=== PATIENT | male | born 1945 | race Caucasian/White ===

== ENCOUNTER → 2017-07-09 14:17 | Outpatient (CLI) | payer MEDICARE, BC, SELFPAY ==
--- NOTE | 2017-07-09 14:33 | CT_ITS ---
CT chest wo con Ordering Physician: Ari Lovell MD Patient Age: 71 years: Male HISTORY: ITS.REASON: LUNG MASS TECHNIQUE: Helical CT scanning performed through the chest. No IV contrast. COMPARISON : Previous LD CT chest from May 2016 FINDINGS MEDIASTINA l: no significant adenopathy. No mass lesions. Scant fluid at pericardial reflection at base the great vessels. Hilar regions satisfactory. Airways. No intraluminal lesion or mass. Aortic arch normal caliber LUNG RYDER. Linear area of most likely scarring at anterior lingula. Axial Image 62,-65. Sagittal 75-78. The sagittal coronal views demonstrate Very slight stellate character however interpreted the linear and similar to the previous study from previous study from May 2016. Overall strongly favor scarring. Thus given its stability and overall appearance Follow-up in one year the adequate for ongoing evaluation. On previous May 2016 CT chest there is a small 3.5 mm nodule anteriorly L UL left midlung field. This is less evident today. No progression most likely area of minor scarring. Axial image 40 Airways. Subtle airway thickening with mild hyperexpansion may reflect chronic bronchitis changes Stable Moderate-sized, low-density nodes left axilla. Upper abdomen. Mildly distended fluid-filled distended stomach. Small most likely cyst superior left lobe liver 8 mm size. Heart normal size coronary artery calcification LAD, left main, first diagonal again noted Stable chest wall or ribs. Mild degenerative disc changes and vacuum phenomena several levels mid T-spine again slightly more evident today . IMPRESSION. 1. No areas of significant concern at lungs Follow-up screening CT one year recommended to confirm stability at the below observations: ... The Linear density towards anterior lingula by far most most likely reflect scarring and is similar to previous studies. Minimally more evident but solid favor scarring overall. ...Tiny vague , left midlung less evident than on 2017 CT chest ... 2. No new areas of concern.Follow-up in one year adequate. 3. Subtle airway thickening with mild hyperexpansion may reflect chronic bronchitis . Coronary artery calcification LAD, left main, first diagonal again noted
== END ==
PROVIDERS: Family Provider Internal Medicine Adolescent Medicine; PCP Internal Medicine Adolescent Medicine; Visit Provider Internal Medicine Adolescent Medicine
DX: R91.8 Other nonspecific abnormal finding of lung field (principal)
CPT/HCPCS: 71250

== ENCOUNTER → 2017-08-28 11:44 | Outpatient (CLI) | payer MEDICARE, BC, SELFPAY ==
[2017-08-29 16:17] LABS: PSA, Free 1.45 ng/mL; Prostate Specific Ag 5.3 ng/mL (0.0-4.0)
== END ==
PROVIDERS: PCP Internal Medicine Adolescent Medicine; Visit Provider Internal Medicine Adolescent Medicine
DX: R97.20 Elevated prostate specific antigen [PSA] (principal)
CPT/HCPCS: 36415; 84153; 84154

== ENCOUNTER 2017-11-04 13:49 | Observation (INO) ==
[2017-11-04 14:30] LABS: Basophils % 0.6 % (0.1-2.0); Eosinophils # 0.1 K/mm3 (0.0-0.4); Hematocrit 41.7 % (42.0-52.0); Hemoglobin 13.4 g/dL (14.1-18.0); Lymphocytes # 1.5 K/mm3 (0.7-4.5); Lymphocytes % 23.5 K/mm3 (10-50); Mean Corpuscular HGB Conc 32.1 g/dL (31.8-35.4); Mean Corpuscular Hemoglobin 31.6 pg (27.0-31.2); Mean Corpuscular Volume 98.2 fl (80-94); Mean Platelet Volume 7.8 fl (7.4-10.4); Monocytes # 0.5 K/mm3 (0.1-1.0); Monocytes % 7.2 % (1.7-9.3); Neutrophils # 4.3 K/mm3 (1.8-7.8); Neutrophils % 66.7 % (37.0-80.0); Platelet Count 247 K/mm3 (142-424); Red Blood Count 4.25 M/mm3 (4.60-6.20); Red Cell Distribution Width 13.1 % (11.5-17.5); White Blood Count 6.5 K/mm3 (4.8-10.8)
[2017-11-04 14:37] LABS: Anion Gap 10.8 mEq/L (5-15); Blood Urea Nitrogen 18 mg/dL (7-18); Calcium 8.1 mg/dL (8.5-10.1); Carbon Dioxide 28 mmol/L (21.0-32.0); Chloride 110 mmol/L (98-107); Glucose 91 mg/dL (74-106); Potassium 3.8 mmoL/L (3.5-5.1); Sodium 145 mmol/L (136-145)
--- NOTE | 2017-11-04 15:32 | Emergency Department Note ---
ED Disposition Clinical Impression: Chest pain Qualifiers: Chest pain type: precordial pain Qualified Code(s): R07.2 - Precordial pain Disposition: Admitted as Observation Condition on Discharge: Good Referrals: Ari Lovell MD [Primary Care Provider] - - Critical Care Critical Care Time: No Attestation: On 11/04/17, the high probability of a clinically significant, sudden or life threatening deterioration of the following system(s) required my full and direct attention, intervention and personal management. The time I documented below is in addition to time spent performing reported procedures but includes the following listed in this critical care notation. Medical Decision Making - Medical Records Medical records reviewed: Yes: I reviewed the patient's medical records. - Vicente Inquiry Pt receiving controlled substance: No Vital Signs: 11/04/17 13:51 11/04/17 15:03 Temperature 98.6 F 98 F Temperature Source Oral Oral Pulse Rate [Brachial] 95 H 74 Respiratory Rate 18 18 Blood Pressure [Right Arm] 170/84 187/97 Blood Pressure Mean [Right Arm] 112 127 Blood Pressure Source [Right Arm] Automatic Cuff Automatic Cuff Blood Pressure Position [Right Arm] Sitting Sitting 02 Sat by Pulse Oximetry 97 97 Oxygen Delivery Method Room Air Room Air - Lab Data Lab results reviewed: Yes: I reviewed the patient's lab results. Lab Results 11/04/17 14:12: WBC 6.5, RBC 4.25 L, Hgb 13.4 L, Hct 41.7 L, MCV 98.2 H, MCH 31.6 H, MCHC 32.1, RDW 13.1, Plt Count 247, MPV 7.8, Neut % (Auto) 66.7, Lymph % (Auto) 23.5, [place] % (Auto) 7.2, Eos % (Auto) 2.0, Baso % (Auto) 0.6, Neut # ( Auto) 4.3, Lymph # (Auto) 1.5, [place] # (Auto) 0.5, Eos # (Auto) 0.1, Baso # (Auto ) 0.0 11/04/17 14:12: Sodium 145, Potassium 3.8, Chloride 110 H, Carbon Dioxide 28, Anion Gap 10.8, BUN 18, Creatinine 0.96, Estimated Creat Clear 79, Estimated GFR 77, Est GFR ( Amer) 93, Glucose 91, Calcium 8.1 L, Troponin I < 0.02 Result diagrams: 11/04/17 14:12 11/04/17 14:12 - Radiology Data #1 Image(s): Chest Image Reviewed: Yes I reviewed the patient's radiology image Preliminary Findings: Normal/NAD - ECG Data Tracing #1 I reviewed this ECG and interpreted as documented below: Normal Sinus Rhythm: Yes Arrhythmias present: PVC's Ischemic changes: other (lat depressions ) Tracing #2 I reviewed this ECG and interpreted as documented below: Arrhythmias present: sinus carmen Ischemic changes: non-specific ST-T wave changes - Physician Consults Physician Consulted: bethany Reason -: Admission Chest Pain HPI - General Chief Complaint: Dizziness Stated Complaint: dizziness and shortness of breath Time Seen by Provider: 11/04/17 14:00 Mode of Arrival: EMS Source of Information: Patient, Spouse, Relative, Medical Record Limitations: No Limitations Description of Symptoms (Recalled from ER Triage Doc. by RN): c/o dizziness, shortness of breath, denies any chest pain, reports tightness in chest. reports similar episodes in past. reports irregular heart rate - History of Present Illness HPI narrative: pt with acute chest tightness with assoc dizzyness with light act - has hx of arrthymia - sx lasted about 1 hr and now have resolved MD complaint: chest pain indicative of cardiac Onset (ago): hour(s) Duration: now resolved Activity at onset: light activity Pain location: substernal Severity: moderate Quality: tightness Relieving factors: nothing Associated symptoms: diaphoresis, dyspnea Risk Factors for CAD: Hypertension, Family Hx of CAD, Smoking Treatments prior to or on arrival for Cardiac Chest Pain: aspirin - DUKE Score Non-Stemi Age of patient: 65 yrs or more Number of risk factors for CAD: Presence of 3 or more Prior coronary artery stenosis(seen in coronary angiography): Less than 50% ST-Segment deviation on ECG (more than 1 min): Present Prior aspirin intake: No ASA in the last 7 days Severe anginal chest pain: No or one episode in last 24 hours Elevated cardiac markers(CK-MB or troponin): Absent Non-Stemi Risk Score: 3 - Related Data Home Medications Medication Instructions Recorded Confirmed Carvedilol [Carvedilol 25mg Tab] 1 tab .ROUTE DAILY 11/04/17 11/04/17 Lisinopril [Lisinopril 10mg Tab] 10 mg .ROUTE DAILY 11/04/17 11/04/17 Tamsulosin HCl [Flomax 0.4mg 1 tab .ROUTE DAILY 11/04/17 11/04/17 capsule] Allergies Allergy/AdvReac Type Severity Reaction Status Date / Time No Known Allergies Allergy Verified 11/04/17 14:[address] [facility] History I have reviewed the patient's past medical history: Yes Medical History: Denies:: Cancer, Diabetes Mellitus Type 1, Diabetes Mellitus Type 2, Internal Pacemaker, MRSA Other Surgeries: No: Pacemaker Amputation: No - Social History Educational Level: Attended High School Smoking Status: Current every day smoker Tobacco Type: cigarettes Alcohol Intake: current Alcohol Intake Frequency:: a few times a week - Psychiatric History Expresses thoughts of harming self/others: None Suicide Plan Description: No Plan ROS Obtained: Yes All systems reviewed & no additional complaints - Constitutional Constitutional: Denies fever(s) - Eyes Eyes: Denies change in vision - ENT Ears, Nose, Mouth, and Throat: Denies sore throat - Cardiovascular Cardiovascular: Reports chest pain, Reports lightheadedness - Respiratory Respiratory: No cough - Gastrointestinal Gastrointestingal: Denies: abdominal pain - Genitourinary Male Genitourinary: Denies hematuria - Musculoskeletal Musculoskeletal: Denies joint pain, Denies joint swelling - Integumentary/Breasts Skin/Breast: Denies rash - Neurologic Neurologic: Denies seizure-like activity Physical Exam - General General appearance: in no apparent distress - Head Head exam: normocephalic - Eye Eye exam: Present: PERRL, EOMI - ENT ENT exam: Present: mucous membranes moist - Neck Neck exam: Present: trachea midline - Respiratory Respiratory exam: Present: normal lung sounds bilaterally. Absent: respiratory distress - Cardiovascular Cardiovascular exam: Present: regular rate, systolic murmur, +S4 - Abdominal Exam Abdominal exam: Present: soft - Extremities Exam Extremities exam: Absent: calf tenderness - Neurological Exam Neurological exam: Present: alert, oriented X3, CN II-XII intact - Psychiatric Psychiatric exam: Present: normal affect - Skin Skin exam: Absent: rash
--- NOTE | 2017-11-04 17:12 | History & Physical Report ---
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 He was able to walk to his daughter's home and the ambulance was called. PVCs with EKG changes were noted on the monitor and he was transported to the hospital where this was confirmed. Once the PVCs stopped EKG had returned to normal. Initial labs were unremarkable but given his symptom complex, significant risk factors of heart disease patient was admitted for telemetry monitoring, rule out VA and cardiology evaluation. [facility] History I have reviewed the patient's past medical history: Yes Medical History: Reports:: Hyperlipidemia, Hypertension Denies:: Cancer, Diabetes Mellitus Type 1, Diabetes Mellitus Type 2, Internal Pacemaker, MRSA Other Medical History: Reports: Arthritis (Gouty arthritis) Other Surgeries: No: Pacemaker Amputation: No - *Social History Educational Level: Attended High School Smoking Status: Current every day smoker Tobacco Type: cigarettes Alcohol Intake: current Alcohol Intake Frequency:: a few times a week - Psychiatric History Expresses thoughts of harming self/others: None Suicide Plan Description: No Plan Review of Systems - Review of Systems Review of systems:: pertinent systems reviewed and negative unless documented below - Constitutional Denies anorexia, Denies body ache(s), Denies chills - Eyes Denies blurry vision, Denies change in vision - ENT Reports abnormal hearing (Chronic hearing loss), Denies change in voice, Denies dry mouth, Denies difficulty swallowing - *Cardiovascular Reports chest pain with activity, Reports shortness of breath, Reports shortness of breath with activity, Reports irregular heart rhythm, Reports lightheadedness, Reports rapid, pounding, or irregular heartbeat, Denies chest pain - *Respiratory Denies change in phlegm color, Denies chest congestion, Denies cough - *Gastrointestinal Denies abdominal pain, Denies belching, Denies coffee ground vomit - *Genitourinary Denies difficulty urinating - *Musculoskeletal Reports joint pain, Denies abnormal walking - *Neurologic Denies seizure-like activity Meds Home Medications Medication Instructions Recorded Confirmed Type Carvedilol [Carvedilol 25mg Tab] 1 tab .ROUTE DAILY 11/04/17 11/04/17 History Lisinopril [Lisinopril 10mg Tab] 10 mg .ROUTE DAILY 11/04/17 11/04/17 History Tamsulosin HCl [Flomax 0.4mg 1 tab .ROUTE DAILY 11/04/17 11/04/17 History capsule] Allergies Allergy/AdvReac Type Severity Reaction Status Date / Time No Known Allergies Allergy Verified 11/04/17 14:14 Exam Vital signs and Labs for Last 24 Hours: Temp Pulse Resp BP Pulse Ox 98.3 F 52 L 16 158/88 97 11/04/17 15:46 11/04/17 15:46 11/04/17 15:46 11/04/17 15:46 11/04/17 15:03 Laboratory Results - last 24 hr 11/04/17 14:12: WBC 6.5, RBC 4.25 L, Hgb 13.4 L, Hct 41.7 L, MCV 98.2 H, MCH 31.6 H, MCHC 32.1, RDW 13.1, Plt Count 247, MPV 7.8, Neut % (Auto) 66.7, Lymph % (Auto) 23.5, [place] % (Auto) 7.2, Eos % (Auto) 2.0, Baso % (Auto) 0.6, Neut # ( Auto) 4.3, Lymph # (Auto) 1.5, [place] # (Auto) 0.5, Eos # (Auto) 0.1, Baso # (Auto ) 0.0 11/04/17 14:12: Sodium 145, Potassium 3.8, Chloride 110 H, Carbon Dioxide 28, Anion Gap 10.8, BUN 18, Creatinine 0.96, Estimated Creat Clear 79, Estimated GFR 77, Est GFR ( Amer) 93, Glucose 91, Calcium 8.1 L, Troponin I < 0.02 11/04/17 16:13: Troponin I < 0.02 I & O for Last 24 hours: Intake & Output 11/02/17 11/03/17 11/04/17 11/05/17 11:59 11:59 11:59 11:59 Weight 190 lb 14.052 oz Narrative: Patient is pleasant, alert, hard of hearing at baseline. 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 No active joint swelling. 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 H&P: Result - Labs Labs: Short CBC 11/04/17 Range/Units 14:12 WBC 6.5 (4.8-10.8) K/mm3 Hgb 13.4 L (14.1-18.0) g/dL Hct 41.7 L (42.0-52.0) % Plt Count 247 (142-424) K/mm3 BMP 11/04/17 14:12 Sodium 145 Potassium 3.8 Chloride 110 H Carbon Dioxide 28 BUN 18 Creatinine 0.96 Glucose 91 Calcium 8.1 L Cardiac Enzymes 11/04/17 11/04/17 Range/Units 14:12 16:13 Troponin I < 0.02 < 0.02 (0.00-0.06) ng/ml Assessment and Plan (1) Ventricular dysrhythmia Current visit: Yes Status: Acute Category: Medical Code(s): I49.9 - Cardiac arrhythmia, unspecified Agree with admission, close monitoring. Blood pressure control with amlodipine. Cardiology evaluation for left heart cath tomorrow morning with echocardiogram. (2) Chest pain Current visit: Yes Status: Acute Qualifiers: Chest pain type: precordial pain Qualified Code(s): R07.2 - Precordial pain Category: Medical Code(s): R07.9 - Chest pain, unspecified
[2017-11-04 17:39] LABS: Free Thyroxine Index 2.8 ug/dL (5.93-13.13); T4 (Thyroxine) 7.7 ug/dl (4.7-13.3); Thyroid Stimulating Hormone 1.17 uIU/ml (0.358-3.740)
[2017-11-05 06:33] LABS: Basophils % 0.6 % (0.1-2.0); Eosinophils # 0.1 K/mm3 (0.0-0.4); Eosinophils % 1.7 % (0.1-12.0); Hemoglobin 13.9 g/dL (14.1-18.0); Lymphocytes # 1.5 K/mm3 (0.7-4.5); Lymphocytes % 20.9 K/mm3 (10-50); Mean Corpuscular HGB Conc 31.7 g/dL (31.8-35.4); Mean Corpuscular Hemoglobin 30.9 pg (27.0-31.2); Mean Corpuscular Volume 97.8 fl (80-94); Mean Platelet Volume 7.7 fl (7.4-10.4); Monocytes # 0.5 K/mm3 (0.1-1.0); Monocytes % 6.5 % (1.7-9.3); Neutrophils % 70.5 % (37.0-80.0); Platelet Count 246 K/mm3 (142-424); Red Cell Distribution Width 13.1 % (11.5-17.5); White Blood Count 7.2 K/mm3 (4.8-10.8)
[2017-11-05 06:35] LABS: Anion Gap 11.9 mEq/L (5-15); Calcium 8.1 mg/dL (8.5-10.1); Chol/HDL Ratio 4.5 (1-3.5); Potassium 3.9 mmoL/L (3.5-5.1)
--- NOTE | 2017-11-05 07:22 | Pharmacy Consult Notes ---
[facility] Pharmacy VTE Monitoring - Patient Demographics Admission date: 11/04/17 Report Date: 11/05/17 Time: 07:22 Allergies/Adverse Reactions: Patient Allergies No Known Allergies Allergy (Verified 11/04/17 14:14) Height: 1.75 m Weight: 88.479 kg Patient Problems: Current Active Problems Chest pain (Acute) Ventricular dysrhythmia (Acute) - VTE Risk Labs: VTE Related Lab Results Hgb 13.9 g/dL (14.1-18.0) L 11/05/17 05:40 Hct 44.0 % (42.0-52.0) 11/05/17 05:40 Plt Count 246 K/mm3 (142-424) 11/05/17 05:40 BUN 15 mg/dL (7-18) 11/05/17 05:40 Creatinine 0.85 mg/dL (0.70-1.30) 11/05/17 05:40 Estimated Creat Clear 81 mL/min (0-300) 11/05/17 05:40 VTE Score: 1 - Prophylaxis VTE Prophylaxis Ordered?: Yes Types of VTE Prophylaxis: TEDS Knee High Location of Applied Device: Bilateral Lower Extremeties - VTE Diagnosis Confirmed Treatment or plan recommended: Continue Current Treatment
--- NOTE | 2017-11-05 07:55 | Progress Note ---
Internal Medicine - PN: Subj *Date: 11/05/17 *Time: 07:55 Interval history: Patient felt well overnight good night sleep. Exam Vital signs and Labs for Last 24 Hours: Temp Pulse Resp BP Pulse Ox 98.2 F 53 L 20 148/74 97 11/05/17 04:50 11/05/17 04:50 11/05/17 04:50 11/05/17 04:50 11/05/17 04:50 Laboratory Results - last 24 hr 11/04/17 14:12: WBC 6.5, RBC 4.25 L, Hgb 13.4 L, Hct 41.7 L, MCV 98.2 H, MCH 31.6 H, MCHC 32.1, RDW 13.1, Plt Count 247, MPV 7.8, Neut % (Auto) 66.7, Lymph % (Auto) 23.5, [place] % (Auto) 7.2, Eos % (Auto) 2.0, Baso % (Auto) 0.6, Neut # ( Auto) 4.3, Lymph # (Auto) 1.5, [place] # (Auto) 0.5, Eos # (Auto) 0.1, Baso # (Auto ) 0.0 11/04/17 14:12: Sodium 145, Potassium 3.8, Chloride 110 H, Carbon Dioxide 28, Anion Gap 10.8, BUN 18, Creatinine 0.96, Estimated Creat Clear 79, Estimated GFR 77, Est GFR ( Amer) 93, Glucose 91, Calcium 8.1 L, Troponin I < 0.02 11/04/17 16:13: Troponin I < 0.02 11/04/17 16:13: TSH 1.17, Free T4 Index 2.8 L, Thyroxine (T4) 7.7, T3 Uptake 36 11/04/17 18:45: Troponin I < 0.02 11/04/17 21:45: Troponin I < 0.02 11/05/17 05:40: WBC 7.2, RBC 4.50 L, Hgb 13.9 L, Hct 44.0, MCV 97.8 H, MCH 30.9 , MCHC 31.7 L, RDW 13.1, Plt Count 246, MPV 7.7, Neut % (Auto) 70.5, Lymph % ( Auto) 20.9, [place] % (Auto) 6.5, Eos % (Auto) 1.7, Baso % (Auto) 0.6, Neut # (Auto ) 5.0, Lymph # (Auto) 1.5, [place] # (Auto) 0.5, Eos # (Auto) 0.1, Baso # (Auto) 0.0 11/05/17 05:40: Sodium 143, Potassium 3.9, Chloride 109 H, Carbon Dioxide 26, Anion Gap 11.9, BUN 15, Creatinine 0.85, Estimated Creat Clear 81, Estimated GFR 88, Est GFR ( Amer) 107, Glucose 97, Calcium 8.1 L, Triglycerides 86 , Cholesterol 145, LDL Cholesterol 96, VLDL Cholesterol 17, HDL Cholesterol 32, Cholesterol/HDL Ratio 4.5 H I & O for Last 24 hours: Intake & Output 11/02/17 11/03/17 11/04/17 11/05/17 11:59 11:59 11:59 11:59 Intake Total 1489 / 1489 Balance 1489 / 1489 Weight 195 lb 1 oz Narrative: Heart rate regular. Patient alert and oriented. No visible edema. Breathing well. Assessment and Plan (1) Ventricular dysrhythmia Current visit: Yes Status: Acute Category: Medical Code(s): I49.9 - Cardiac arrhythmia, unspecified (2) Chest pain Current visit: Yes Status: Acute Qualifiers: Chest pain type: precordial pain Qualified Code(s): R07.2 - Precordial pain Category: Medical Code(s): R07.9 - Chest pain, unspecified - Assessment and plan all Dx Assessment and Plan for all problems:: Preliminary echo report looks good. Cardiology consultation pending.
--- NOTE | 2017-11-05 14:17 | Consult Report ---
History of Present Illness Consult date: 11/05/17 Consult reason: chest pain Chief complaint: chest pain Additional Medical History:: 1. Chest pain a. Several episodes of chest pain intermittently for past few months. 2. Ventricular arrhythmia a. Episodes of supra ventricular tachycardia. b. Frequent PVC's and PACs. 3. Hypertension a. Currently on anti-hypertensive medication. 4. Alcohol dependance a. 2-3 drinks a day for several years. 5. Tobacco dependence a. 1-2 ppd for 30+ years. History of present illness: 72 year old white male presents to the Emergency department on 11/04/2017 for chest pressure and tightness accompanied with dizziness. Pt stated he had been walking from the wood pile at home when he began having a "funny feeling" in his chest. He complained of dizziness and felt "my head was spinning". Denied radiation of chest tightness or pressure. Denied shortness of breath. Denied palpitations. Pt stated that this episode lasted for more than one hour. Pt has history of hypertension. Initial EKG was performed in the ER. Revealed Sinus rhythm with fusion complexes and premature atrial complexes with aberrant condition with heart rate of 78bpm. Baseline lab was preformed and unremarkable. Serial enzymes were negative. Chest xray was performed and was negative with no acute findings. Cardiology consult was performed. Discussed the risk and benefits of Dr. Jovel performing Left heart catheterization due to chest pressure and tightness, alcohol and tobacco dependence. Discussed access of the right wrist for LHC. Pt agreeable and will proceed with LHC and echocardiogram. Left heart catetherization revealed: ANGIOGRAPHIC RESULTS: 1. The left main artery normal 2. The left anterior descending artery is proximally normal with mild mid vessel 10-20% stenoses 3. The circumflex artery is a large dominant vessel and has an ostial 70-80% stenosis. 4. The right coronary artery is a nondominant vessel and has proximal 70% stenoses mid vessel 50 and 60% stenoses throughout its entire mid segment. Distally there are additional 50 and 60% stenoses 5. The CROWLEY ventriculogram reveals normal 65% 6. The left ventricular end-diastolic pressure 10 mmHg IMPRESSION: 1. Severe disease in the ostial proximal dominant circumflex artery 2. Successful stenting of the ostial circumflex artery severe disease reduced to 0% with 1 drug-eluting stent 3. Persistent moderate to severe disease throughout the right coronary artery as described above 4. Normal ejection fraction 5. Normal left ventricular end-diastolic pressure PLAN: 1. Brilinta and aspirin 2. LDL less than 55 3. Risk factor modification 4. Avoidance of tobacco products 5. Cardiac rehabilitation Echocardiogram results pending at this time. [facility] History Medical History: Reports:: Arrhythmia, Hyperlipidemia, Hypertension Denies:: Cancer, Diabetes Mellitus Type 1, Diabetes Mellitus Type 2, Internal Pacemaker, MRSA Other Medical History: Reports: Arthritis (Gouty arthritis) Laterality Cases: Bilateral: Tonsillectomy Other Surgeries: No: Pacemaker Amputation: No - *Social History Educational Level: Attended High School Smoking Status: Current every day smoker Tobacco Type: cigarettes # Packs/Day (cigarettes): 1 #Yrs smoked (if former smoker): 64 Alcohol Intake: current Alcohol Intake Frequency:: a few times a week Occupational Status: retired Housing: house Household Members: spouse - Psychiatric History Expresses thoughts of harming self/others: None Suicide Plan Description: No Plan *Family Hx:: Cancer Meds Home Medications Medication Instructions Recorded Confirmed Type Carvedilol [Carvedilol 25mg Tab] 1 tab PO BID 11/04/17 11/05/17 History Diclofenac Sodium [Diclofenac 75mg 75 mg PO BID 11/04/17 11/04/17 History Tab] Lisinopril [Lisinopril 10mg Tab] 10 mg PO DAILY 11/04/17 11/05/17 History Tamsulosin HCl [Flomax 0.4mg 1 tab PO DAILY 11/04/17 11/05/17 History capsule] Allergies Allergy/AdvReac Type Severity Reaction Status Date / Time No Known Allergies Allergy Verified 11/04/17 14:14 Review of Systems - Review of Systems Review of systems:: pertinent systems reviewed and negative unless documented below - Constitutional Reports fatigue, Reports lack of energy - *Cardiovascular Reports chest pain, Reports chest pain with activity, Reports shortness of breath with activity, Reports lightheadedness, Reports rapid, pounding, or irregular heartbeat, Denies generalized swelling, Denies radiating jaw, neck or arm pain - *Respiratory Reports shortness of breath with activity, Denies change in phlegm color, Denies cough, Denies pain with cough, Denies wheezing - *Gastrointestinal Denies abdominal pain, Denies constipation - *Musculoskeletal Denies abnormal walking, Denies muscle weakness, Denies neck pain - *Neurologic Reports abnormal hearing (Chronic hearing loss), Reports dizziness, Denies abnormal walking, Denies seizure-like activity - Psychiatric Denies confusion, Denies depression, Denies irritability Exam Vital signs and Labs for Last 24 Hours: Temp Pulse Resp BP Pulse Ox 97.5 F L 65 12 143/75 93 L 11/05/17 13:55 11/05/17 13:55 11/05/17 13:55 11/05/17 13:55 11/05/17 13:55 Laboratory Results - last 24 hr 11/04/17 14:12: WBC 6.5, RBC 4.25 L, Hgb 13.4 L, Hct 41.7 L, MCV 98.2 H, MCH 31.6 H, MCHC 32.1, RDW 13.1, Plt Count 247, MPV 7.8, Neut % (Auto) 66.7, Lymph % (Auto) 23.5, [place] % (Auto) 7.2, Eos % (Auto) 2.0, Baso % (Auto) 0.6, Neut # ( Auto) 4.3, Lymph # (Auto) 1.5, [place] # (Auto) 0.5, Eos # (Auto) 0.1, Baso # (Auto ) 0.0 11/04/17 14:12: Sodium 145, Potassium 3.8, Chloride 110 H, Carbon Dioxide 28, Anion Gap 10.8, BUN 18, Creatinine 0.96, Estimated Creat Clear 79, Estimated GFR 77, Est GFR ( Amer) 93, Glucose 91, Calcium 8.1 L, Troponin I < 0.02 11/04/17 16:13: Troponin I < 0.02 11/04/17 16:13: TSH 1.17, Free T4 Index 2.8 L, Thyroxine (T4) 7.7, T3 Uptake 36 11/04/17 18:45: Troponin I < 0.02 11/04/17 21:45: Troponin I < 0.02 11/05/17 05:40: WBC 7.2, RBC 4.50 L, Hgb 13.9 L, Hct 44.0, MCV 97.8 H, MCH 30.9 , MCHC 31.7 L, RDW 13.1, Plt Count 246, MPV 7.7, Neut % (Auto) 70.5, Lymph % ( Auto) 20.9, [place] % (Auto) 6.5, Eos % (Auto) 1.7, Baso % (Auto) 0.6, Neut # (Auto ) 5.0, Lymph # (Auto) 1.5, [place] # (Auto) 0.5, Eos # (Auto) 0.1, Baso # (Auto) 0.0 11/05/17 05:40: Sodium 143, Potassium 3.9, Chloride 109 H, Carbon Dioxide 26, Anion Gap 11.9, BUN 15, Creatinine 0.85, Estimated Creat Clear 81, Estimated GFR 88, Est GFR ( Amer) 107, Glucose 97, Calcium 8.1 L, Triglycerides 86 , Cholesterol 145, LDL Cholesterol 96, VLDL Cholesterol 17, HDL Cholesterol 32, Cholesterol/HDL Ratio 4.5 H 11/05/17 11:54: Activated Clotting Time 251 H* I & O for Last 24 hours: Intake & Output 11/02/17 11/03/17 11/04/17 11/05/17 23:59 23:59 23:59 23:59 Intake Total 600 / 600 889 / 889 Output Total 300 / 300 Balance 600 / 600 589 / 589 Weight 195 lb 195 lb 1 oz - Constitutional no acute distress, average body habitus - *Routine HEENT Exam Head: Present: normocephalic Eye: Present: EOMI ENT: Present: mucous membranes moist - *Routine Neck Exam Present: full ROM, normal carotid upstroke, trachea midline. Absent: JVD, carotid bruit, lymphadenopathy, thyromegaly - Routine Chest/Breast/Axilla Exam Chest wall: Present: tenderness. Absent: mass, pacemaker - *Routine Respiratory Exam Present: accessory muscle use, CTA bilaterally. Absent: rales, wheezes, crackles - *Routine Cardiovascular Exam Present: Normal S1, Normal S2, bradycardia, irregular rhythm. Absent: murmur, gallop, rubs, JVD - *Routine Abdominal Exam Present: soft, normoactive bowel sounds, firm - *Routine Extremities Exam Present: full ROM, pulses intact, normal capillary refill. Absent: cyanosis, edema - *Routine Skin Exam Present: intact, dry, warm. Absent: rash - *Routine Neurological Exam Present: alert, oriented X3, CN II-XII intact, moving all extremities, normal tone, normal speech - Routine Psychiatric Exam Present: normal affect Assessment and Plan (1) Ventricular dysrhythmia Current visit: Yes Status: Acute Category: Medical Code(s): I49.9 - Cardiac arrhythmia, unspecified (2) Chest pain Current visit: Yes Status: Acute Qualifiers: Chest pain type: precordial pain Qualified Code(s): R07.2 - Precordial pain Category: Medical Code(s): R07.9 - Chest pain, unspecified (3) Coronary artery disease Current visit: Yes Status: Acute Category: Medical Code(s): I25.10 - Atherosclerotic heart disease of [place] coronary artery without angina pectoris (4) Stented coronary artery Current visit: Yes Status: Acute Category: Surgical Code(s): Z95.5 - Presence of coronary angioplasty implant and graft - Assessment and plan all Dx Assessment and Plan for all problems:: Plan: 1. Schedule Left heart catetherization: LHC performed. Severe disease in the ostial proximal dominant circumflex artery. Persistent moderate to severe disease throughout the right coronary artery. Normal Ejection fraction. 2. Obtain echocardigoram. 3. Add Brilinta 90mg BID for drug-eluting stent placement. 4. Add Aspirin 81mg tablet to daily medication regimen. 5. Tobacco cessation advised and recommended. 6. Alcohol cessation advised and recommended. 7. Continue current medication regimen. 8. No heavy lifting until cardiology follow up. 9. Cardiology clinic follow up in one week. Will discuss cardiac rehab at that time.
--- NOTE | 2017-11-05 14:33 | Discharge Summary ---
General - General Admission date:: 11/04/17 Discharge date: 11/05/17 HPI HPI: 72-year-old white male with significant cardiac risk factors who was working in his wood shop this morning and afternoon and suddenly felt that he was not exactly feeling well with a sensation of some palpitations and chest pressure and tightness as well as dizziness. He was able to walk to his daughter's home and the ambulance was called. PVCs with EKG changes were noted on the monitor and he was transported to the hospital where this was confirmed. Once the PVCs stopped EKG had returned to normal. Initial labs were unremarkable but given his symptom complex, significant risk factors of heart disease patient was admitted for telemetry monitoring, rule out NH and cardiology evaluation. Hospital Course Hospital Course: Patient was admitted, no further episodes were noted, initial cardiac enzymes were negative. Patient was subjected to left heart catheterization today the results of which are noted below: ANGIOGRAPHIC RESULTS: 1. The left main artery normal 2. The left anterior descending artery is proximally normal with mild mid vessel 10-20% stenoses 3. The circumflex artery is a large dominant vessel and has an ostial 70-80% stenosis. 4. The right coronary artery is a nondominant vessel and has proximal 70% stenoses mid vessel 50 and 60% stenoses throughout its entire mid segment. Distally there are additional 50 and 60% stenoses 5. The CROWLEY ventriculogram reveals normal 65% 6. The left ventricular end-diastolic pressure 10 mmHg IMPRESSION: 1. Severe disease in the ostial proximal dominant circumflex artery 2. Successful stenting of the ostial circumflex artery severe disease reduced to 0% with 1 drug-eluting stent 3. Persistent moderate to severe disease throughout the right coronary artery as described above 4. Normal ejection fraction 5. Normal left ventricular end-diastolic pressure PLAN: 1. Brilinta and aspirin 2. LDL less than 55 3. Risk factor modification 4. Avoidance of tobacco products 5. Cardiac rehabilitation The patient did well post catheterization and was discharged according to protocol with the medications and advice as noted above. I will see him in 2 weeks. Objective Vital signs: Temp Pulse Resp BP Pulse Ox 97.5 F L 65 12 143/75 93 L 11/05/17 13:55 11/05/17 13:55 11/05/17 13:55 11/05/17 13:55 11/05/17 13:55 Narrative: Please see exam notes from the admission documentation from this morning Results Labs on day of discharge: Labs from last 24 hours 11/05/17 11/05/17 11/05/17 11:54 05:40 05:40 WBC 7.2 RBC 4.50 L Hgb 13.9 L Hct 44.0 MCV 97.8 H MCH 30.9 MCHC 31.7 L RDW 13.1 Plt Count 246 MPV 7.7 Neut % (Auto) 70.5 Lymph % (Auto) 20.9 [place] % (Auto) 6.5 Eos % (Auto) 1.7 Baso % (Auto) 0.6 Neut # (Auto) 5.0 Lymph # (Auto) 1.5 [place] # (Auto) 0.5 Eos # (Auto) 0.1 Baso # (Auto) 0.0 Activated Clotting Time 251 H* Sodium 143 Potassium 3.9 Chloride 109 H Carbon Dioxide 26 Anion Gap 11.9 BUN 15 Creatinine 0.85 Estimated Creat Clear 81 Estimated GFR 88 Est GFR ( Amer) 107 Glucose 97 Calcium 8.1 L Troponin I Triglycerides 86 Cholesterol 145 LDL Cholesterol 96 VLDL Cholesterol 17 HDL Cholesterol 32 Cholesterol/HDL Ratio 4.5 H TSH Free T4 Index Thyroxine (T4) T3 Uptake 11/04/17 11/04/17 11/04/17 21:45 18:45 16:13 WBC RBC Hgb Hct MCV MCH MCHC RDW Plt Count MPV Neut % (Auto) Lymph % (Auto) [place] % (Auto) Eos % (Auto) Baso % (Auto) Neut # (Auto) Lymph # (Auto) [place] # (Auto) Eos # (Auto) Baso # (Auto) Activated Clotting Time Sodium Potassium Chloride Carbon Dioxide Anion Gap BUN Creatinine Estimated Creat Clear Estimated GFR Est GFR ( Amer) Glucose Calcium Troponin I < 0.02 < 0.02 Triglycerides Cholesterol LDL Cholesterol VLDL Cholesterol HDL Cholesterol Cholesterol/HDL Ratio TSH 1.17 Free T4 Index 2.8 L Thyroxine (T4) 7.7 T3 Uptake 36 11/04/17 11/04/17 11/04/17 16:13 14:12 14:12 WBC 6.5 RBC 4.25 L Hgb 13.4 L Hct 41.7 L MCV 98.2 H MCH 31.6 H MCHC 32.1 RDW 13.1 Plt Count 247 MPV 7.8 Neut % (Auto) 66.7 Lymph % (Auto) 23.5 [place] % (Auto) 7.2 Eos % (Auto) 2.0 Baso % (Auto) 0.6 Neut # (Auto) 4.3 Lymph # (Auto) 1.5 [place] # (Auto) 0.5 Eos # (Auto) 0.1 Baso # (Auto) 0.0 Activated Clotting Time Sodium 145 Potassium 3.8 Chloride 110 H Carbon Dioxide 28 Anion Gap 10.8 BUN 18 Creatinine 0.96 Estimated Creat Clear 79 Estimated GFR 77 Est GFR ( Amer) 93 Glucose 91 Calcium 8.1 L Troponin I < 0.02 < 0.02 Triglycerides Cholesterol LDL Cholesterol VLDL Cholesterol HDL Cholesterol Cholesterol/HDL Ratio TSH Free T4 Index Thyroxine (T4) T3 Uptake DS: Diagnosis - Discharge Diagnosis (1) Ventricular dysrhythmia Status: Acute (2) Chest pain Status: Acute Discharge Plan - Patient Discharge Instructions ACTIVITY: Continue current activity DIET: low fat, low cholesterol - Follow up Plan Follow up with: Sammy Jovel MD [Staff Physician] - 1 week Ari Lovell MD [Primary Care Provider] - 11/13/17 Disposition: Home, Self-Correction Medications: Home Medications Medication Instructions Recorded Confirmed Type Carvedilol [Carvedilol 25mg Tab] 1 tab PO BID 11/04/17 11/05/17 History Diclofenac Sodium [Diclofenac 75mg 75 mg PO BID 11/04/17 11/04/17 History Tab] Lisinopril [Lisinopril 10mg Tab] 10 mg PO DAILY 11/04/17 11/05/17 History Tamsulosin HCl [Flomax 0.4mg 1 tab PO DAILY 11/04/17 11/05/17 History capsule] Prescriptions/Medication Reconciliation: New Aspirin [Aspir 81] 81 mg PO DAILY #90 tablet. Atorvastatin Calcium [Atorvastatin 80mg Tab] 80 mg PO DAILY #90 tab Ticagrelor [Brilinta 90mg Tablet] 90 mg PO BID #180 tab Continue Tamsulosin HCl [Flomax 0.4mg capsule] 1 tab PO DAILY Lisinopril [Lisinopril 10mg Tab] 10 mg PO DAILY Diclofenac Sodium [Diclofenac 75mg Tab] 75 mg PO BID Carvedilol [Carvedilol 25mg Tab] 1 tab PO BID
--- NOTE | 2017-11-05 20:28 | Cardiology Report ---
PROCEDURE: 2-D M-mode and color Doppler study INDICATIONS FOR THE TEST: Chest pain + COPD Heart Murmur Tobacco Smoking+ Palpitations+ Fatigue Syncope Edema Hypertension+Diabetes Mellitus Rheumatic Fever SOB MATA Obesity Hyperlipidemia+ Family History HD Additional History PATIENT INFORMATION HEIGHT: 69 WEIGHT:190 GENDER: Male B/P:158/88 2-D/M-MODE INTERPRETATION: 2-D MEASUREMENTS OBSERVED VALUES IN CMS Right Ventricular Dimension (RVDd) 2.4 Interventricular Septum (Thickness)(IVsd) 1.3 Left Ventricular Internal Dimensions(LVIDd) 5.5 Left Ventricular Posterior Wall (Thickness)(LVPWd) 0.8 Aortic Root 3.6 Aortic Cusp Separation 2.2 Left Atrial Dimensions (LAD) 4.0 2D 1. Left atrium is moderately enlarged, left ventricle is normal size, mild concentric left ventricular hypertrophy, visually estimated ejection fraction of 55%, septum has sigmoid configuration. 2. The right atrium and right ventricle are relatively normal size and function. 3. The aortic valve is minimally thickened and fibrosed. 4. The mitral and tricuspid valve leaflets are minimally thickened 5. The pulmonic valve is poorly visualized. 6. No significant pericardial effusion noted DOPPLER INTERROGATION: Doppler interrogation of the aortic, mitral and tricuspid valvular presence of moderate mitral and mild tricuspid regurgitation, tricuspid regurgitant jet velocity is insufficient for calculation of the right ventricular systolic pressure, grade 1 diastolic dysfunction seen with tissue Doppler evidence of raised left atrial pressure. CONCLUSION: 1. Moderately enlarged left atrium, normal left ventricular size, mild concentric left ventricular hypertrophy, visually estimated ejection fraction of 55% with no obvious regional wall motion abnormality, septum has sigmoid configuration. Grade 1 diastolic dysfunction seen with tissue Doppler evidence of raised left atrial pressure. 2. Moderate mitral and mild tricuspid regurgitation 3. No significant pericardial effusion noted.
== END 2017-11-05 18:06 | disposition home or self-care (01) ==
LOC: ER 13:49 → 2ND 13:49
PROVIDERS: ADMIT Internal Medicine Adolescent Medicine; ATTEND Internal Medicine Adolescent Medicine

== ENCOUNTER → 2018-01-03 10:09 | Outpatient (POV) | payer MEDICARE, BC, SELFPAY | PROVIDERS: Family Provider Internal Medicine Adolescent Medicine; PCP Internal Medicine Adolescent Medicine; Visit Provider Dentist | DX: Z00.00 Encounter for general adult medical examination without abnormal findings (principal) ==

== ENCOUNTER 2018-01-10 06:57 | Observation (INO) ==
[2018-01-10 07:26] LABS: Basophils # 0.1 K/mm3 (0-0.2); Basophils % 0.7 % (0.1-2.0); Eosinophils # 0.2 K/mm3 (0.0-0.4); Eosinophils % 1.9 % (0.1-12.0); Hematocrit 41.2 % (42.0-52.0); Lymphocytes # 1.5 K/mm3 (0.7-4.5); Lymphocytes % 20.1 K/mm3 (10-50); Mean Corpuscular HGB Conc 34.1 g/dL (31.8-35.4); Mean Corpuscular Hemoglobin 32.7 pg (27.0-31.2); Mean Platelet Volume 7.8 fl (7.4-10.4); Monocytes # 0.5 K/mm3 (0.1-1.0); Monocytes % 6.6 % (1.7-9.3); Neutrophils # 5.3 K/mm3 (1.8-7.8); Neutrophils % 70.6 % (37.0-80.0); Platelet Count 221 K/mm3 (142-424); Red Blood Count 4.29 M/mm3 (4.60-6.20); Red Cell Distribution Width 13.1 % (11.5-17.5); White Blood Count 7.5 K/mm3 (4.8-10.8)
--- NOTE | 2018-01-10 07:34 | Emergency Department Note ---
ED Disposition Clinical Impression: Stented coronary artery Cardiac arrhythmia Qualifiers: Arrhythmia type: unspecified cardiac arrhythmia Qualified Code(s): I49.9 - Ca rdiac arrhythmia, unspecified Disposition: Admitted as Observation Condition on Discharge: Good Referrals: Ari Lovell MD [Primary Care Provider] - - Critical Care Critical Care Time: No Attestation: On 01/10/18, the high probability of a clinically significant, sudden or life threatening deterioration of the following system(s) required my full and direct attention, intervention and personal management. The time I documented below is in addition to time spent performing reported procedures but includes the following listed in this critical care notation. Medical Decision Making - Medical Records Medical records reviewed: Yes: I reviewed the patient's medical records. - Vicente Inquiry Pt receiving controlled substance: No Vital Signs: 01/10/18 06:59 Temperature 97.6 F Temperature Source Oral Pulse Rate [Right Radial] 104 H Respiratory Rate 12 Blood Pressure [Right Arm] 141/87 Blood Pressure Mean [Right Arm] 105 Blood Pressure Source [Right Arm] Automatic Cuff Blood Pressure Position [Right Arm] Sitting 02 Sat by Pulse Oximetry 94 L Oxygen Delivery Method Room Air - Lab Data Lab results reviewed: Yes: I reviewed the patient's lab results. Lab Results 01/10/18 07:05: WBC 7.5, RBC 4.29 L, Hgb 14.0 L, Hct 41.2 L, MCV 96.0 H, MCH 32.7 H, MCHC 34.1, RDW 13.1, Plt Count 221, MPV 7.8, Neut % (Auto) 70.6, Lymph % (Auto) 20.1, [place] % (Auto) 6.6, Eos % (Auto) 1.9, Baso % (Auto) 0.7, Neut # (Auto) 5.3, Lymph # (Auto) 1.5, [place] # (Auto) 0.5, Eos # (Auto) 0.2, Baso # (Auto) 0.1 Result diagrams: 01/10/18 07:05 Orders (Tests/Meds): ORDERS Category Date Time Status XR chest 2V Stat Exams 01/10/18 07:04 Taken Basic Metabolic Panel Stat Lab 01/10/18 07:05 Received T4 (Thyroxine) Stat Lab 01/10/18 07:30 Ordered TSH [Thyroid Stimulating Hormone] Stat Lab 01/10/18 07:30 Ordered Trop I [Troponin I] Stat Lab 01/10/18 07:05 Received ECG Request by /Santino Stat Y 01/10/18 07:04 Ordered - Radiology Data #1 Image(s): Chest Image Reviewed: Yes I reviewed the patient's radiology image Preliminary Findings: Normal/NAD - ECG Data Tracing #1 I reviewed this ECG and interpreted as documented below: Arrhythmias present: afib, wandering atrial pacemaker Ischemic changes: non-specific ST-T wave changes - Physician Consults Physician Consulted: bethany Reason -: Admission Arrhythmia/Palpitations HPI - General Chief Complaint: Shortness of Breath/Dyspnea Stated Complaint: shortnes of air Time Seen by Provider: 01/10/18 07:29 Mode of Arrival: Ambulatory Source of Information: Patient, Spouse Limitations: No Limitations - History of Present Illness HPI narrative: this am with feeling faint and weak with irreg ht beat with no chest pain but no syncope MD complaint: palpitations, irregular heart beat Onset (ago): hour(s) Duration: intermittent Severity: moderate Context: occurred during rest Associated symptoms: denies other symptoms, shortness of breath Treatments prior to arrival: beta-ricky - Related Data Home Medications Medication Instructions Recorded Confirmed Diclofenac Sodium [Diclofenac 75mg 75 mg PO BID 11/04/17 01/10/18 Tab] Tamsulosin HCl [Flomax 0.4mg 1 tab PO DAILY 11/04/17 01/10/18 capsule] Aspirin [Aspir 81] 81 mg PO DAILY 01/10/18 01/10/18 Atorvastatin Calcium [Atorvastatin 80 mg PO DAILY 01/10/18 01/10/18 80mg Tab] Carvedilol [Carvedilol 12.5mg Tab] 12.5 mg PO BID 01/10/18 01/10/18 Clopidogrel Bisulfate [Plavix 75mg 75 mg PO DAILY 01/10/18 01/10/18 Tab] Lisinopril [Prinivil 10mg Tablet] 10 mg PO DAILY 01/10/18 01/10/18 Allergies Allergy/AdvReac Type Severity Reaction Status Date / Time No Known Allergies Allergy Verified 01/10/18 07:04 [facility] History I have reviewed the patient's past medical history: Yes Medical History: Reports:: Arrhythmia, Hyperlipidemia, Hypertension Denies:: Cancer, Diabetes Mellitus Type 1, Diabetes Mellitus Type 2, Internal Pacemaker, MRSA Other Medical History: Reports: Arthritis Laterality Cases: Bilateral: Tonsillectomy Other Surgeries: Yes: Cardiac Catheterization, Coronary Stent. No: Pacemaker Amputation: No - Social History Smoking Status: Current every day smoker Tobacco Type: cigarettes # Packs/Day (cigarettes): 1 #Yrs smoked (if former smoker): 64 Alcohol Intake: current Alcohol Intake Frequency:: holidays/special occasions only Occupational Status: retired Housing: house Household Members: spouse - Psychiatric History Expresses thoughts of harming self/others: None Suicide Plan Description: No Plan Family Hx:: Cancer ROS Obtained: Yes All systems reviewed & no additional complaints - Constitutional Constitutional: Denies fever(s) - Eyes Eyes: Denies change in vision - ENT Ears, Nose, Mouth, and Throat: Denies sore throat - Cardiovascular Cardiovascular: Reports as per HPI, Denies chest pain at rest, Reports irregular heart rhythm, Reports lightheadedness - Respiratory Respiratory: No cough - Gastrointestinal Gastrointestingal: Reports: nausea. Denies: abdominal pain - Genitourinary Male Genitourinary: Denies hematuria - Musculoskeletal Musculoskeletal: Denies joint pain, Denies joint swelling - Integumentary/Breasts Skin/Breast: Denies rash - Neurologic Neurologic: Denies headache(s), Denies seizure-like activity Physical Exam - General General appearance: alert, in no apparent distress - Head Head exam: normocephalic - Eye Eye exam: Present: PERRL, EOMI - ENT ENT exam: Present: mucous membranes dry - Neck Neck exam: Present: trachea midline, other (no bruit heard ) - Respiratory Respiratory exam: Present: normal lung sounds bilaterally - Cardiovascular Cardiovascular exam: Present: irregular rhythm, systolic murmur, +S4 - Abdominal Exam Abdominal exam: Present: soft - Extremities Exam Extremities exam: Absent: calf tenderness - Neurological Exam Neurological exam: Present: alert, oriented X3, CN II-XII intact - Psychiatric Psychiatric exam: Present: normal affect - Skin Skin exam: Absent: rash
[2018-01-10 07:38] LABS: Anion Gap 10.6 mEq/L (5-15); Blood Urea Nitrogen 17 mg/dL (7-18); Calcium 8.6 mg/dL (8.5-10.1); Carbon Dioxide 27 mmol/L (21.0-32.0); Chloride 108 mmol/L (98-107); Glucose 128 mg/dL (74-106); Potassium 3.6 mmoL/L (3.5-5.1); Sodium 142 mmol/L (136-145)
[2018-01-10 07:55] LABS: T4 (Thyroxine) 7.8 ug/dl (4.7-13.3); Thyroid Stimulating Hormone 2.59 uIU/ml (0.358-3.740)
--- NOTE | 2018-01-10 09:05 | Consult Report ---
Addendum entered and electronically signed by KADE Stevens 01/10/18 15:38: Patient received a dose of Lovenox subcutaneously this a.m. He will start Xarelto 20 mg with meal daily today. He underwent transesophageal echocardiogram showing preserved ejection fraction with no significant valvular heart disease and no evidence of intracardiac thrombi. While sedated, he received a single synchronized 200 J shock converting him from atrial fibrillation to sinus rhythm. Postprocedure patient states he felt back to normal and was ready to go home. Medication changes upon discharge to include discontinuation of aspirin and carvedilol therapy. He will start Xarelto 20 mg daily and bisoprolol 5 mg twice daily. Follow-up with us in 1 week with an EKG. During the sedation for BRENDA and cardioversion patient was noted to have signs of sleep apnea, therefore, outpatient sleep study for obstructive sleep apnea is recommended. Original Note: History of Present Illness Consult date: 01/10/18 Requesting physician: Sammy Jovel Consult reason: atrial fibrillation Chief complaint: Weakness, Irregular heart beat Additional Medical History:: 1. CAD A. Cardiac cath, 10/2017, with VERONA to ostial Circumflex artery. Remaining RCA disease will be treated medically. (cath results: The left main artery normal, The left anterior descending artery is proximally normal with mild mid vessel 10-20% stenoses. The circumflex artery is a large dominant vessel and has an ostial 70-80% stenosis. The right coronary artery is a nondominant vessel and has proximal 70% stenoses mid vessel 50 and 60% stenoses throughout its entire mid segment. Distally there are additional 50 and 60% stenoses. The [place]OW[place] ventriculogram reveals normal 65%. The left ventricular end-diastolic pressure 10 mm Hg). B. Intolerant of Brilinta 2. Ventricular arrhythmia A. Episodes of supra ventricular tachycardia. B. Frequent PVC's and PACs. C. New onset A. fib, 01/10/2018 3. Hypertension A. Echo, 10/2017, Moderately enlarged left atrium, normal left ventricular size, mild concentric left ventricular hypertrophy, visually estimated ejection fraction of 55% with no obvious regional wall motion abnormality, septum has sigmoid configuration. Grade 1 diastolic dysfunction seen with tissue Doppler evidence of raised left atrial pressure. Moderate mitral and mild tricuspid regurgitation. No significant pericardial effusion noted 4. Alcohol dependance a. 2-3 drinks a day for several years. 5. Tobacco dependence a. 1-2 ppd for 30+ years. 6. Hyperlipidemia History of present illness: 72-year-old white male with known coronary artery disease with recent stenting to his circumflex artery in October 2017 presented to the emergency department today for weakness, dizziness and irregular heartbeat. Patient states since October and the coronary stenting, he has felt great. He has been out working in [employer] up until yesterday. This a.m., while in his normal breakfast routine, he stated things just did not feel right. He checked his pulse and noted it to be irregular. He called his son to come over and check his blood pressure and heart rate. Blood pressure noted to be in the 160/60 mmHg range with heart rate in the 90-120 bpm range and irregular. Patient was brought to the emergency department for further evaluation. He denies any chest pain. EKG in the emergency department shows atrial fibrillation with rate of about 100 bpm. Initial troponin noted to be normal. Patient was admitted to observation for further evaluation. Cardiology consulted for evaluation and recommendations. Patient does relate intermittent palpitations over the last several months but nothing to the degree of his irregular heartbeat today. [facility] History Medical History: Reports:: Arrhythmia, Hyperlipidemia, Hypertension Denies:: Cancer, Diabetes Mellitus Type 1, Diabetes Mellitus Type 2, Internal Pacemaker, MRSA Other Medical History: Reports: Arthritis Laterality Cases: Bilateral: Tonsillectomy Other Surgeries: Yes: Cardiac Catheterization, Coronary Stent. No: Pacemaker Amputation: No Fractures: No - *Social History Educational Level: Attended High School Smoking Status: Current every day smoker Tobacco Type: cigarettes # Packs/Day (cigarettes): 1 #Yrs smoked (if former smoker): 64 Alcohol Intake: never Alcohol Intake Frequency:: holidays/special occasions only Occupational Status: retired Housing: house Household Members: spouse - Psychiatric History Expresses thoughts of harming self/others: None Suicide Plan Description: No Plan *Family Hx:: Cancer Meds Home Medications Medication Instructions Recorded Confirmed Type Diclofenac Sodium [Diclofenac 75mg 75 mg PO BID 11/04/17 01/10/18 History Tab] Tamsulosin HCl [Flomax 0.4mg 1 tab PO DAILY 11/04/17 01/10/18 History capsule] Aspirin [Aspir 81] 81 mg PO DAILY 01/10/18 01/10/18 History Atorvastatin Calcium [Atorvastatin 80 mg PO DAILY 01/10/18 01/10/18 History 80mg Tab] Carvedilol [Carvedilol 12.5mg Tab] 12.5 mg PO BID 01/10/18 01/10/18 History Clopidogrel Bisulfate [Plavix 75mg 75 mg PO DAILY 01/10/18 01/10/18 History Tab] Lisinopril [Prinivil 10mg Tablet] 10 mg PO DAILY 01/10/18 01/10/18 History Allergies Allergy/AdvReac Type Severity Reaction Status Date / Time No Known Allergies Allergy Verified 01/10/18 07:04 Review of Systems - *Cardiovascular Reports irregular heart rhythm, Denies chest pain - *Respiratory Denies shortness of breath - *Gastrointestinal Denies abdominal pain - *Genitourinary Denies blood in urine - *Musculoskeletal Denies joint pain - *Neurologic Denies headache(s), Denies seizure-like activity Exam Vital signs and Labs for Last 24 Hours: Temp Pulse Resp BP Pulse Ox 98.2 F 103 H 20 134/79 97 01/10/18 08:06 01/10/18 08:06 01/10/18 08:06 01/10/18 08:06 01/10/18 08:00 Laboratory Results - last 24 hr 01/10/18 07:05: WBC 7.5, RBC 4.29 L, Hgb 14.0 L, Hct 41.2 L, MCV 96.0 H, MCH 32.7 H, MCHC 34.1, RDW 13.1, Plt Count 221, MPV 7.8, Neut % (Auto) 70.6, Lymph % (Auto) 20.1, [place] % (Auto) 6.6, Eos % (Auto) 1.9, Baso % (Auto) 0.7, Neut # (Auto) 5.3, Lymph # (Auto) 1.5, [place] # (Auto) 0.5, Eos # (Auto) 0.2, Baso # (Auto) 0.1 01/10/18 07:05: Sodium 142, Potassium 3.6, Chloride 108 H, Carbon Dioxide 27, Anion Gap 10.6, BUN 17, Creatinine 1.02, Estimated Creat Clear 53, Estimated GFR 71, Est GFR ( Amer) 86, Glucose 128 H, Calcium 8.6, Troponin I < 0.02 01/10/18 07:05: TSH 2.59 D, Thyroxine (T4) 7.8 I & O for Last 24 hours: Intake & Output 01/07/18 01/08/18 01/09/18 01/10/18 11:59 11:59 11:59 11:59 Weight 194 lb 1 oz - *Routine Neck Exam Present: supple. Absent: JVD, carotid bruit, lymphadenopathy - *Routine Respiratory Exam Present: decreased breath sounds, wheezes. Absent: rhonchi - *Routine Cardiovascular Exam Present: irregularly irregular. Absent: murmur, gallop - *Routine Abdominal Exam Present: soft, normoactive bowel sounds. Absent: tenderness - *Routine Extremities Exam Absent: cyanosis, clubbing, edema - *Routine Neurological Exam Present: alert, oriented X3, moving all extremities Assessment and Plan (1) Atrial fibrillation, new onset Current visit: Yes Status: Acute Category: Medical Code(s): I48.91 - Unspecified atrial fibrillation (2) Stented coronary artery Current visit: Yes Status: Chronic Category: Surgical Code(s): Z95.5 - Presence of coronary angioplasty implant and graft (3) Wheezing Current visit: No Status: Acute Category: Medical Code(s): R06.2 - Wheezing (4) Coronary artery disease Current visit: No Status: Chronic Qualifiers: Coronary Disease-Associated Artery/Lesion type: [place] artery [place] vs. transplanted heart: [place] heart Associated angina: without angina Qualified Code(s): I25.10 - Atherosclerotic heart disease of [place] coronary artery without angina pectoris Category: Medical Code(s): I25.10 - Atherosclerotic heart disease of [place] coronary artery without angina pectoris (5) HTN (hypertension) Current visit: No Status: Chronic Category: Medical Code(s): I10 - Essential (primary) hypertension (6) Tobacco dependence syndrome Current visit: No Status: Chronic Category: Medical Code(s): F17.200 - Nicotine dependence, unspecified, uncomplicated - Assessment and plan all Dx Assessment and Plan for all problems:: 1. We will start anticoagulation for CHADS-VASc score of 2 (age, HTN) and thromboembolic prevention. 2. We will discontinue Coreg and switch to bisoprolol for better heart rate control. 3. Will discuss with Dr. Weinstein regarding BRENDA and cardioversion today.
--- NOTE | 2018-01-10 09:41 | History & Physical Report ---
*Admission Date: 01/10/18 *Chief complaint: weak, dizzy, shortness of breath *History of present illness: 72-year-old white male with known coronary artery disease with recent stenting to his circumflex artery in October 2017 presented to the emergency department today for weakness, dizziness and irregular heartbeat. Patient states since October and the coronary stenting, he has felt great. He has been out working in [employer] up until yesterday. This a.m., while in his normal breakfast routine, he stated things just did not feel right. He checked his pulse and noted it to be irregular. He called his son to come over and check his blood pressure and heart rate. Blood pressure noted to be in the 160/60 mmHg range with heart rate in the 90-120 bpm range and irregular. Patient was brought to the emergency department for further evaluation. He denies any chest pain. EKG in the emergency department shows atrial fibrillation with rate of about 100 bpm. Initial troponin noted to be normal. Patient was admitted to observation for further evaluation. Cardiology consulted for evaluation and recomm endations. Patient does relate intermittent palpitations over the last several months but nothing to the degree of his irregular heartbeat today. Above per Cardiology KADE Chakraborty, much appreciated. [facility] History I have reviewed the patient's past medical history: Yes Medical History: Reports:: Arrhythmia, Hyperlipidemia, Hypertension Denies:: Cancer, Diabetes Mellitus Type 1, Diabetes Mellitus Type 2, Internal Pacemaker, MRSA Other Medical History: Reports: Arthritis Laterality Cases: Bilateral: Tonsillectomy Other Surgeries: Yes: Cardiac Catheterization, Coronary Stent. No: Pacemaker Amputation: No Fractures: No - *Social History Educational Level: Attended High School Smoking Status: Current every day smoker Tobacco Type: cigarettes # Packs/Day (cigarettes): 1 #Yrs smoked (if former smoker): 64 Alcohol Intake: never Alcohol Intake Frequency:: holidays/special occasions only Occupational Status: retired Housing: house Household Members: spouse - Psychiatric History Expresses thoughts of harming self/others: None Suicide Plan Description: No Plan *Family Hx:: Cancer Review of Systems - Review of Systems Review of systems:: pertinent systems reviewed and negative unless documented below - Constitutional Reports weakness - *Cardiovascular Reports shortness of breath, Reports irregular heart rhythm, Reports leg swel ling - *Neurologic Denies headache(s), Denies seizure-like activity Meds Home Medications Medication Instructions Recorded Confirmed Type Diclofenac Sodium [Diclofenac 75mg 75 mg PO BID 11/04/17 01/10/18 History Tab] Tamsulosin HCl [Flomax 0.4mg 1 tab PO DAILY 11/04/17 01/10/18 History capsule] Aspirin [Aspir 81] 81 mg PO DAILY 01/10/18 01/10/18 History Atorvastatin Calcium [Atorvastatin 80 mg PO DAILY 01/10/18 01/10/18 History 80mg Tab] Carvedilol [Carvedilol 12.5mg Tab] 12.5 mg PO BID 01/10/18 01/10/18 History Clopidogrel Bisulfate [Plavix 75mg 75 mg PO DAILY 01/10/18 01/10/18 History Tab] Lisinopril [Prinivil 10mg Tablet] 10 mg PO DAILY 01/10/18 01/10/18 History Allergies Allergy/AdvReac Type Severity Reaction Status Date / Time No Known Allergies Allergy Verified 01/10/18 07:04 Exam Vital signs and Labs for Last 24 Hours: Temp Pulse Resp BP Pulse Ox 98.2 F 103 H 20 134/79 97 01/10/18 08:06 01/10/18 08:06 01/10/18 08:06 01/10/18 08:06 01/10/18 08:00 Laboratory Results - last 24 hr 01/10/18 07:05: WBC 7.5, RBC 4.29 L, Hgb 14.0 L, Hct 41.2 L, MCV 96.0 H, MCH 32.7 H, MCHC 34.1, RDW 13.1, Plt Count 221, MPV 7.8, Neut % (Auto) 70.6, Lymph % (Auto) 20.1, [place] % (Auto) 6.6, Eos % (Auto) 1.9, Baso % (Auto) 0.7, Neut # (Auto) 5.3, Lymph # (Auto) 1.5, [place] # (Auto) 0.5, Eos # (Auto) 0.2, Baso # (Auto) 0.1 01/10/18 07:05: Sodium 142, Potassium 3.6, Chloride 108 H, Carbon Dioxide 27, Anion Gap 10.6, BUN 17, Creatinine 1.02, Estimated Creat Clear 53, Estimated GFR 71, Est GFR ( Amer) 86, Glucose 128 H, Calcium 8.6, Troponin I < 0.02 01/10/18 07:05: TSH 2.59 D, Thyroxine (T4) 7.8 I & O for Last 24 hours: Intake & Output 01/07/18 01/08/18 01/09/18 01/10/18 11:59 11:59 11:59 11:59 Weight 194 lb 1 oz Narrative: Alert and oriented x3. No acute neuro deficits. Rate and rhythm regular. Trace ankle edema. Pulses 2+. Abdominal pain, normoactive bowel sounds. ENT exam unremarkable. Skin pink, warm and dry. Assessment and Plan (1) Atrial fibrillation, new onset Current visit: Yes Status: Acute Category: Medical Code(s): I48.91 - Unspecified atrial fibrillation (2) Stented coronary artery Current visit: Yes Status: Chronic Category: Surgical Code(s): Z95.5 - Presence of coronary angioplasty implant and graft (3) Wheezing Current visit: No Status: Acute Category: Medical Code(s): R06.2 - Wheezing (4) Coronary artery disease Current visit: No Status: Chronic Qualifiers: Coronary Disease-Associated Artery/Lesion type: [place] artery [place] vs. transplanted heart: [place] heart Associated angina: without angina Qualified Code(s): I25.10 - Atherosclerotic heart disease of [place] coronary artery without angina pectoris Category: Medical Code(s): I25.10 - Atherosclerotic heart disease of [place] coronary artery without angina pectoris (5) HTN (hypertension) Current visit: No Status: Chronic Category: Medical Code(s): I10 - Essential (primary) hypertension (6) Tobacco dependence syndrome Current visit: No Status: Chronic Category: Medical Code(s): F17.200 - Nicotine dependence, unspecified, uncomplicated - Assessment and plan all Dx Assessment and Plan for all problems:: Lovenox given x1 and xarelto was started for anticoagulation. Beta ricky changed to bisoprolol for better rate control. Cardiology considering BRENDA with cardioversion, see cardiology note.
--- NOTE | 2018-01-10 10:34 | Cardiology Report ---
PROCEDURE: 2-D M-mode and color Doppler study INDICATIONS FOR THE TEST: Chest pain COPD Heart Murmur Tobacco Smoking+ Palpitations+ Fatigue Syncope Edema Hypertension+Diabetes Mellitus Rheumatic Fever SOB+MATA+Obesity Hyperlipidemia+ Family History HD Additional History PATIENT INFORMATION HEIGHT: 64 WEIGHT: 200 GENDER: Male B/P: 141/87 2-D/M-MODE INTERPRETATION: 2-D MEASUREMENTS OBSERVED VALUES IN CMS Right Ventricular Dimension (RVDd) 3.2 Interventricular Septum (Thickness)(IVsd) 1.7 Left Ventricular Internal Dimensions(LVIDd) 3.2 Left Ventricular Posterior Wall (Thickness)(LVPWd) 1.4 Aortic Root 3.5 Aortic Cusp Separation 2.3 Left Atrial Dimensions (LAD) 4.4 2D 1. Left atrium is mildly enlarged, left ventricle is normal size, mild concentric left ventricular hypertrophy, septum has sigmoid configuration, visually estimated ejection fraction 55-60% with no obvious regional wall motion abnormality. 2. The right atrium and right ventricle are mildly enlarged with normal contractility. 3. The aortic valve is minimally thickened and fibrosed. 4. The mitral and tricuspid valve leaflets are minimally thickened. 5. The pulmonic valve is poorly visualized. 6. No significant pericardial effusion noted. DOPPLER INTERROGATION: Doppler interrogation of the aortic, mitral and tricuspid valvular presence of mild mitral and tricuspid regurgitation, tricuspid regurgitation jet velocity is insufficient for calculation of the right ventricular systolic pressure, grade 1 diastolic dysfunction seen without tissue Doppler evidence of raised left atrial pressure. CONCLUSION: 1. Mildly left atrium, normal left ventricular size, mild concentric left ventricular hypertrophy, septum has sigmoid configuration, visually estimated ejection fraction 55-60% with no obvious regional wall motion abnormality, grade 1 diastolic dysfunction seen without tissue Doppler evidence of raised left atrial pressure. 2. Mild mitral and tricuspid regurgitation 3. No significant pericardial effusion noted.
--- NOTE | 2018-01-10 12:06 | Pharmacy Consult Notes ---
[facility] Pharmacy VTE Monitoring - Patient Demographics Admission date: 01/10/18 Report Date: 01/10/18 Time: 12:06 Allergies/Adverse Reactions: Patient Allergies No Known Allergies Allergy (Verified 01/10/18 07:04) Height: 1.73 m Weight: 88.025 kg Patient Problems: Current Active Problems Cardiac arrhythmia (Acute) Atrial fibrillation, new onset (Acute) Stented coronary artery (Chronic) - VTE Risk Labs: VTE Related Lab Results Hgb 14.0 g/dL (14.1-18.0) L 01/10/18 07:05 Hct 41.2 % (42.0-52.0) L 01/10/18 07:05 Plt Count 221 K/mm3 (142-424) 01/10/18 07:05 BUN 17 mg/dL (7-18) 01/10/18 07:05 Creatinine 1.02 mg/dL (0.70-1.30) 01/10/18 07:05 Estimated Creat Clear 53 mL/min (0-300) 01/10/18 07:05 VTE Score: 1 VTE Risk Level: Very Low Risk - Prophylaxis VTE Prophylaxis Ordered?: Yes Types of VTE Prophylaxis: TEDS Knee High Location of Applied Device: Bilateral Lower Extremeties - VTE Diagnosis Confirmed Treatment or plan recommended: Continue Current Treatment
--- NOTE | 2018-01-10 14:02 | Progress Note ---
[facility] Anesthesia Checklist - Patient Identification Patient Identification: Arm Band - Structural Data Admitted From: Home Planned Operative Procedure/s: BRENDA/Cardioversion Consent for Planned Operative Procedure(s) Verified: Yes Verified Documents: Surgical Consent, History and Physical - NPO Status Verified Time NPO: 00:00 - Additional verifications Anesthesia Reactions: No - Airway Assessment C-Spine Mobility Assessed: Yes (mp2) TMJ Mobility Assessed: Yes Dentition: Good Dentition - Neurological Assessment Level of Consciousness: Awake, Alert - Anesthesia Plan Anesthesia Risk discussed: Yes Anesthesia Plan: Verified ASA Class: III Anesthesia Type: MAC [facility] History I have reviewed the patient's past medical history: Yes Medical History: Reports:: Arrhythmia, Atrial Fibrillation, Chronic Obstructive Pulmonary Disease (COPD), Coronary Artery Disease (stent x1 ), Hyperlipidemia, Hypertension Denies:: Cancer, Diabetes Mellitus Type 1, Diabetes Mellitus Type 2, Internal Pacemaker, MRSA Other Medical History: Reports: Arthritis Laterality Cases: Bilateral: Tonsillectomy Other Surgeries: Yes: Cardiac Catheterization, Coronary Stent. No: Pacemaker Amputation: No Fractures: No - *Social History Educational Level: Attended High School Smoking Status: Current every day smoker Tobacco Type: cigarettes # Packs/Day (cigarettes): 1 #Yrs smoked (if former smoker): 64 Alcohol Intake: never Alcohol Intake Frequency:: holidays/special occasions only Occupational Status: retired Housing: house Household Members: spouse - Psychiatric History Expresses thoughts of harming self/others: None Suicide Plan Description: No Plan *Family Hx:: Cancer
--- NOTE | 2018-01-10 15:36 | Procedure Note ---
[facility] Cardioversion Date: 01/10/18 Provider:: NIKITA Weinstein MD Procedure Performed:: Cardioversion Diagnosis:: Atrial fibrillation Procedure Summary:: After informed consent obtained, 72-year-old white male with new onset atrial fibrillation underwent transesophageal echocardiogram revealing no evidence of intracardiac thrombi with preserved ejection fraction and no significant valvular heart disease. With Anesthesiology providing sedation, patient underwent a single synchronized 200 J shock converting him from atrial fibrillation to normal sinus rhythm. Patient tolerated the procedure well. Complications:: None Conculsion:: Successful electrical cardioversion from atrial fibrillation to sinus rhythm.
--- NOTE | 2018-01-10 16:28 | Cardiology Report ---
Procedure: Transesophageal echocardiogram Indication for procedure: AF Procedure: Patient was brought in to the intensive care unit, after the informed consent, patient was given conscious sedation by anesthesiologist, local anesthesia was applied, and transesophageal echocardiogram is performed without any difficulty. Patient tolerated the procedure well. Findings: 1. Left atrium is moderately enlarged, left atrial appendage is free of thrombus, there is adequate appendage flow by Doppler. 2. The right atrium is normal size. 3. The intra-atrial septum is intact, there is no flow across the intra-atrial septum, agitated saline contrast study fails to identify intracardiac shunt. 4. The aortic valve is minimally thickened and calcified leaflet continue to display good mobility. 5. The mitral and tricuspid valve leaflets are minimally thickened, there is mild to moderate mitral and mild tricuspid regurgitation. 6. The pulmonic valve is structurally normal. 7. The right ventricle is normal size and contractility. 8. The left ventricle is normal size, visually estimated ejection fraction 55% with no regional wall motion abnormality. 9. No significant pericardial effusion noted 10. The ascending, arch and descending thoracic aorta there is no aneurysm or dissection, normal by atheromatous plaque seen in the descending thoracic aorta. Conclusion: 1. Moderately enlarged left atrium, left atrial appendage is free of thrombus. 2. Mild to moderate mitral and mild tricuspid regurgitation 3. Normal left ventricular size, visually estimated ejection fraction 55% with no regional wall motion abnormality. 4. No significant pericardial effusion noted 5. Agitated saline contrast study fails to identify intracardiac shunt. 6. Nonmobile by atheromatous plaque seen in the descending thoracic aorta.
--- NOTE | 2018-01-10 17:15 | Discharge Summary ---
General - General Admission date:: 01/10/18 Discharge date: 01/10/18 HPI HPI: 72-year-old white male with known coronary artery disease with recent stenting to his circumflex artery in October 2017 presented to the emergency department today for weakness, dizziness and irregular heartbeat. Patient states since October and the coronary stenting, he has felt great. He has been out working in [employer] up until yesterday. This a.m., while in his normal breakfast routine, he stated things just did not feel right. He checked his pulse and noted it to be irregular. He called his son to come over and check his blood pressure and heart rate. Blood pressure noted to be in the 160/60 mmHg range with heart rate in the 90-120 bpm range and irregular. Patient was brought to the emergency department for further evaluation. He denies any chest pain. EKG in the emergency department shows atrial fibrillation with rate of about 100 bpm. Initial troponin noted to be normal. Patient was admitted to observation for further evaluation. Cardiology consulted for evaluation and recommendations. Patient does relate intermittent palpitations over the last several months but nothing to the degree of his irregular heartbeat today. Above per Cardiology KADE Chakraborty, much appreciated. Hospital Course Hospital Course: Patient was admitted and placed on telemetry. He remained in A. Fib and cardiology was consulted. Echo was obtained which was unremarkable, see report. Patient was taken for BRENDA with cardioversion. He was shocked at 200J and converted to NSR where he has remained. He tolerated procedure well and was cleared by cardiology to discharge home. Discharge home on bisoprolol and xarelto. Stop aspirin. See med rec for complete list. Will arrange for sleep study as an outpatient. FU with cardiology in one week. Objective Vital signs: Temp Pulse Resp BP Pulse Ox 97.9 F 58 L 18 146/72 98 01/10/18 16:15 01/10/18 16:15 01/10/18 16:15 01/10/18 16:15 01/10/18 16:15 Narrative: See H&P from this morning. Results Labs on day of discharge: Labs from last 24 hours 01/10/18 01/10/18 01/10/18 14:05 11:00 07:05 WBC RBC Hgb Hct MCV MCH MCHC RDW Plt Count MPV Neut % (Auto) Lymph % (Auto) [place] % (Auto) Eos % (Auto) Baso % (Auto) Neut # (Auto) Lymph # (Auto) [place] # (Auto) Eos # (Auto) Baso # (Auto) Sodium Potassium Chloride Carbon Dioxide Anion Gap BUN Creatinine Estimated Creat Clear Estimated GFR Est GFR ( Amer) Glucose Calcium Troponin I < 0.02 < 0.02 TSH 2.59 D Thyroxine (T4) 7.8 01/10/18 01/10/18 07:05 07:05 WBC 7.5 RBC 4.29 L Hgb 14.0 L Hct 41.2 L MCV 96.0 H MCH 32.7 H MCHC 34.1 RDW 13.1 Plt Count 221 MPV 7.8 Neut % (Auto) 70.6 Lymph % (Auto) 20.1 [place] % (Auto) 6.6 Eos % (Auto) 1.9 Baso % (Auto) 0.7 Neut # (Auto) 5.3 Lymph # (Auto) 1.5 [place] # (Auto) 0.5 Eos # (Auto) 0.2 Baso # (Auto) 0.1 Sodium 142 Potassium 3.6 Chloride 108 H Carbon Dioxide 27 Anion Gap 10.6 BUN 17 Creatinine 1.02 Estimated Creat Clear 53 Estimated GFR 71 Est GFR ( Amer) 86 Glucose 128 H Calcium 8.6 Troponin I < 0.02 TSH Thyroxine (T4) DS: Diagnosis - Discharge Diagnosis (1) Atrial fibrillation, new onset Status: Resolved (2) Stented coronary artery Status: Chronic (3) Wheezing Status: Acute (4) Coronary artery disease Status: Chronic (5) HTN (hypertension) Status: Chronic (6) Tobacco dependence syndrome Status: Chronic Discharge Plan - Patient Discharge Instructions ACTIVITY: Continue current activity DIET: continue same diet Additional Instructions: Outpatient sleep study Patient Instructions: Atrial Fibrillation - Follow up Plan Follow up with: Sammy Jovel MD [Staff Physician] - 1 week Disposition: Home, Self-Senior Living Medications: Home Medications Medication Instructions Recorded Confirmed Type Tamsulosin HCl [Flomax 0.4mg 0.4 mg PO DAILY 11/04/17 01/10/18 History capsule] Atorvastatin Calcium [Atorvastatin 80 mg PO DAILY 01/10/18 01/10/18 History 80mg Tab] Clopidogrel Bisulfate [Plavix 75mg 75 mg PO DAILY 01/10/18 01/10/18 History Tab] Lisinopril [Prinivil 10mg Tablet] 10 mg PO DAILY 01/10/18 01/10/18 History Prescriptions/Medication Reconciliation: New Rivaroxaban [Xarelto] 20 mg PO HS #30 tablet Bisoprolol Fumarate [Zebeta 5mg tablet] 5 mg PO BID #60 tablet Continue Tamsulosin HCl [Flomax 0.4mg capsule] 0.4 mg PO DAILY Lisinopril [Prinivil 10mg Tablet] 10 mg PO DAILY Atorvastatin Calcium [Atorvastatin 80mg Tab] 80 mg PO DAILY Clopidogrel Bisulfate [Plavix 75mg Tab] 75 mg PO DAILY Discontinued Diclofenac Sodium [Diclofenac 75mg Tab] 75 mg PO BID Carvedilol [Carvedilol 12.5mg Tab] 12.5 mg PO BID Aspirin [Aspir 81] 81 mg PO DAILY
== END 2018-01-10 16:55 | disposition home or self-care (01) ==
LOC: 2ND 06:57 → ER 06:57 → 2ND 08:10
PROVIDERS: ADMIT Emergency Medicine; ATTEND Internal Medicine Adolescent Medicine

== ENCOUNTER → 2018-01-24 08:12 | Outpatient (POV) | payer MEDICARE, BC, SELFPAY | PROVIDERS: Visit Provider Dentist | DX: Z00.00 Encounter for general adult medical examination without abnormal findings (principal) ==

== ENCOUNTER → 2018-02-05 20:25 | Outpatient (CLI) | payer MEDICARE, BC, SELFPAY | PROVIDERS: PCP Internal Medicine Adolescent Medicine; Visit Provider Internal Medicine Cardiovascular Disease | DX: G47.33 Obstructive sleep apnea (adult) (pediatric) (principal); I10 Essential (primary) hypertension | CPT/HCPCS: 95810 ==

== ENCOUNTER → 2018-02-20 07:14 | Outpatient (CLI) | payer MEDICARE, BC, SELFPAY ==
[2018-02-20 08:42] LABS: Microscopic, Urine URINE MICROSCOPIC (MICROSCOPIC)
[2018-02-20 14:13] LABS: Anion Gap 12.9 mEq/L (5-15); Blood Urea Nitrogen 21 mg/dL (7-18); Calcium 8.2 mg/dL (8.5-10.1); Carbon Dioxide 26 mmol/L (21.0-32.0); Chloride 109 mmol/L (98-107); Creatinine,Serum 0.98 mg/dL (0.70-1.30); Estimated Glomerular Filt Rate 75 ml/min (>60); GFR (African American) 90 ML/MIN (>60); Glucose 89 mg/dL (74-106); Potassium 3.9 mmoL/L (3.5-5.1); Sodium 144 mmol/L (136-145)
[2018-02-20 14:17] LABS: Appearance,Urine TURBID (Clear); Blood, Urine 3+ (Negative); Color,Urine BROWN (Yellow); Glucose,Urine (UA) Negative (Negative); Ketones,Urine Negative (Negative); Leukocyte Esterase,Urine Negative (Negative); Nitrate,Urine POSITIVE (Negative); PH,Urine 6.5 (5.0-8.5); Protein,Urine 2+ (Negative); Specific Gravity, Urine >= 1.030 (1.005-1.030)
[2018-02-20 14:36] LABS: Bilirubin,Urine Negative (Negative)
[2018-02-20 14:51] LABS: Bacteria,Urine Trace /lpf; WBC,Urine Occasional #/hpf (0-3)
== END ==
PROVIDERS: PCP Internal Medicine Adolescent Medicine; Visit Provider Internal Medicine Cardiovascular Disease
DX: F17.200 Nicotine dependence, unspecified, uncomplicated (principal); I10 Essential (primary) hypertension; I25.10 Atherosclerotic heart disease of native coronary artery without angina pectoris; I49.9 Cardiac arrhythmia, unspecified; R06.00 Dyspnea, unspecified; R53.83 Other fatigue; Z95.5 Presence of coronary angioplasty implant and graft
CPT/HCPCS: 36415; 80048; 81001

== ENCOUNTER → 2018-03-29 15:53 | Outpatient (CLI) | payer MEDICARE, BC, SELFPAY | PROVIDERS: PCP Internal Medicine Adolescent Medicine; Visit Provider Nurse Practitioner Family | DX: R00.2 Palpitations (principal); R42 Dizziness and giddiness | CPT/HCPCS: 93225; 93226 ==

== ENCOUNTER → 2018-04-18 10:56 | Outpatient (CLI) | payer MEDICARE, BC, SELFPAY ==
[2018-04-18 13:09] LABS: Anion Gap 14.1 mEq/L (5-15); Blood Urea Nitrogen 27 mg/dL (7-18); Calcium 8.5 mg/dL (8.5-10.1); Carbon Dioxide 28 mmol/L (21.0-32.0); Chloride 108 mmol/L (98-107); Creatinine,Serum 1.42 mg/dL (0.70-1.30); Estimated Glomerular Filt Rate 49 ml/min (>60); GFR (African American) 59 ML/MIN (>60); Glucose 96 mg/dL (74-106); Potassium 4.1 mmoL/L (3.5-5.1); Sodium 146 mmol/L (136-145)
== END ==
PROVIDERS: PCP Internal Medicine Adolescent Medicine; Visit Provider Nurse Practitioner Family
DX: I10 Essential (primary) hypertension (principal); I25.10 Atherosclerotic heart disease of native coronary artery without angina pectoris
CPT/HCPCS: 36415; 80048

== ENCOUNTER → 2018-10-21 12:36 | Outpatient (CLI) | payer MEDICARE, BC, SELFPAY ==
--- NOTE | 2018-10-21 12:37 | CI_ITS ---
Cerebrovascular Exam Indications: 780.4 Dizziness and giddiness. 433.10 Occlusion/stenosis of carotid artery without cerebral infarction. IMPRESSIONS 1. The bilateral vertebral arteries are patent with normal antegrade flow. 2. Study suggests less than 20% stenosis involving the right internal carotid artery and the left internal carotid artery. No change from the study of 22-May-2016. 3. Tortuous carotid arteries seen bilaterally. Carotid duplex study. Complete study and Doppler flow study including spectral analysis, color and treviño scale imaging. Location: Vascular laboratory. Patient status: Outpatient. Tables: Arterial flow: + +--------+--------+ Location V sys V ed + +--------+--------+ Right CCA - proximal 95.9cm/s 13.4cm/s + +--------+--------+ Right CCA - distal 99cm/s 14.9cm/s + +--------+--------+ Right ECA 202cm/s -------- + +--------+--------+ Right ICA - proximal 97.5cm/s 18.8cm/s + +--------+--------+ Right ICA - mid 77.5cm/s 15.3cm/s + +--------+--------+ Right vertebral 35.8cm/s -------- + +--------+--------+ Left CCA - proximal 85.6cm/s 18.3cm/s + +--------+--------+ Left CCA - distal 107cm/s 20.1cm/s + +--------+--------+ Left ECA 142cm/s -------- + +--------+--------+ Left ICA - proximal 90.3cm/s 20.4cm/s + +--------+--------+ Left ICA - mid 85.6cm/s 28.5cm/s + +--------+--------+ Left ICA - distal 86.2cm/s 23.7cm/s + +--------+--------+ Left vertebral 51.5cm/s -------- + +--------+--------+ Velocity ratios: + + + + + + Right, V sys Right, V ed Left, V sys Left, V ed + + + + + + Max ICA/dist CCA 0.98 1.26 0.84 1.42 + + + + + + (Report amended ) Electronically signed by: Laith Yi [id number]
== END ==
PROVIDERS: PCP Internal Medicine Adolescent Medicine; Visit Provider Internal Medicine Cardiovascular Disease
DX: I25.10 Atherosclerotic heart disease of native coronary artery without angina pectoris (principal); R20.0 Anesthesia of skin; R42 Dizziness and giddiness
CPT/HCPCS: 93880

== ENCOUNTER 2019-06-09 21:05 | Observation (INO) ==
[2019-06-09 21:13] LABS: Basophils % 0.4 % (0.1-2.0); Eosinophils # 0.1 K/mm3 (0.0-0.4); Eosinophils % 1.3 % (0.1-12.0); Hematocrit 38.1 % (42.0-52.0); Hemoglobin 12.2 g/dL (14.1-18.0); Lymphocytes # 1.3 K/mm3 (0.7-4.5); Mean Corpuscular HGB Conc 31.9 g/dL (31.8-35.4); Mean Corpuscular Volume 97.1 fl (80-94); Mean Platelet Volume 7.7 fl (7.4-10.4); Monocytes # 0.4 K/mm3 (0.1-1.0); Monocytes % 4.8 % (1.7-9.3); Neutrophils # 5.6 K/mm3 (1.8-7.8); Neutrophils % 75.4 % (37.0-80.0); Platelet Count 381 K/mm3 (142-424); Red Blood Count 3.93 M/mm3 (4.60-6.20); Red Cell Distribution Width 14.6 % (11.5-17.5); White Blood Count 7.4 K/mm3 (4.8-10.8)
[2019-06-09 21:26] LABS: Albumin Level 3.2 gm/dL (3.4-5.0); Albumin/Globulin Ratio 0.9 (1.1-1.8); Anion Gap 14.1 mEq/L (5-15); C-Reactive Protein 0.5 mg/dL (0.0-0.9); Calcium 9.1 mg/dL (8.5-10.1); Globulin 3.6 gm/dl (1.3-3.2); Total Protein,Serum 6.8 gm/dL (6.4-8.2)
--- NOTE | 2019-06-09 21:29 | Emergency Department Note ---
ED Disposition Clinical Impression: UGIB (upper gastrointestinal bleed) Disposition: Admitted as Observation Condition on Discharge: Good - Critical Care Critical Care Time: No Attestation: On 06/09/19, the high probability of a clinically significant, sudden or life threatening deterioration of the following system(s) required my full and direct attention, intervention and personal management. The time I documented below is in addition to time spent performing reported procedures but includes the following listed in this critical care notation. Medical Decision Making - Medical Records Medical records reviewed: Yes: I reviewed the patient's medical records. - Vicente Inquiry Pt receiving controlled substance: No Vital Signs: 06/09/19 20:51 06/09/19 22:15 Temperature 98.1 F 98.1 F Temperature Source Oral Oral Pulse Rate [Left Radial] 90 63 Respiratory Rate 16 17 Blood Pressure [Right Arm] 134/72 139/64 Blood Pressure Mean [Right Arm] 92 89 Blood Pressure Source [Right Arm] Automatic Cuff Blood Pressure Position [Right Arm] Sitting 02 Sat by Pulse Oximetry 98 95 Oxygen Delivery Method Room Air - Lab Data Lab results reviewed: Yes: I reviewed the patient's lab results. Lab Results 06/09/19 20:20: WBC 7.4, RBC 3.93 L, Hgb 12.2 L, Hct 38.1 L, MCV 97.1 H, MCH 31.0, MCHC 31.9, RDW 14.6, Plt Count 381, MPV 7.7, Neut % (Auto) 75.4, Lymph % (Auto) 18.0, [place] % (Auto) 4.8, Eos % (Auto) 1.3, Baso % (Auto) 0.4, Neut # (Auto) 5.6, Lymph # (Auto) 1.3, [place] # (Auto) 0.4, Eos # (Auto) 0.1, Baso # (Auto) 0.0 06/09/19 20:20: Sodium 140, Potassium 4.1, Chloride 102, Carbon Dioxide 28, Anion Gap 14.1, BUN 16, Creatinine 1.09 D, Estimated Creat Clear 59, Estimated GFR 66, Est GFR ( Amer) 80 D, Glucose 87, Calcium 9.1, Total Bilirubin 1.0, AST 27, ALT 30, Alkaline Phosphatase 125 H, C-Reactive Protein 0.5, Total Protein 6.8, Albumin 3.2 L, Globulin 3.6 H, Albumin/Globulin Ratio 0.9 L 06/09/19 20:20: ESR 61 H Result diagrams: 06/09/19 20:20 06/09/19 20:20 Orders (Tests/Meds): ED MEDICATIONS Generic Name Dose Route Start Last Admin Trade Name Freq PRN Reason Stop Dose Admin Sodium Chloride 1,000 mls @ 999 mls/hr 06/09/19 21:15 06/09/19 21:16 Sod Chlor 0.9% 1000ml Bag IV 06/09/19 22:15 999 mls/hr .Q1H1M LAUREN Administration Sodium Chloride 8 ml 06/09/19 21:07 06/09/19 21:16 Sodium Chloride 0.9% 10ml Vial IV 07/09/19 21:06 8 ml NEEDED PRN Administration dilute pepcid Discontinued Medications Generic Name Dose Route Start Last Admin Trade Name Freq PRN Reason Stop Dose Admin Famotidine 20 mg 06/09/19 21:07 06/09/19 21:16 Pepcid 20mg/2ml Vial IV 06/09/19 21:08 20 mg ONCE ONE Administration Ioversol 75 ml 06/09/19 22:44 Rad-Optiray 350 100ml Vial IV 06/09/19 22:45 ONCE ONE Protocol Metoclopramide HCl 10 mg 06/09/19 21:07 06/09/19 21:16 Reglan 10mg/2ml Vial IVP 06/09/19 21:08 10 mg ONCE ONE Administration Sodium Chloride 10 ml 06/09/19 22:44 06/09/19 22:45 Rad-Saline Flush 10ml Syringe IV 06/09/19 22:45 10 ml ONCE ONE Administration ORDERS Category Date Time Status CT abdomen pelvis w con Stat Cat Scan 06/09/19 21:03 Taken - CT Data CT Scan: Abdomen, Pelvis Time Received: 00:[address] Reviewed: Yes: I have viewed the radiologist's interpretation Preliminary Findings: Abnormal (possible esophagitis ) - Physician Consults Physician Consulted: [email or web address] Reason -: Admission GI Bleed HPI - General Chief complaint: Nausea/Vomiting/Diarrhea Stated complaint: vomiting blood Time Seen by Provider: 06/09/19 21:10 Mode of Arrival: EMS Source of Information: Patient, Relative, EMS, Medical Record Limitations: No Limitations Description of Symptoms (Recalled from ER Triage Doc. by RN): pt has been voming since being at [facility]. pt began to vomit dark brown emesis in the last couple of hours. pt denies abdominal pain at this time. - History of Present Illness HPI Narrative: pt with recent stroke requiring surg and had trach and g tube and was at [facility] and now at [facility] - he had vomiting and coffee gr and blood this pm w ith nausea but no pain reported MD complaint: coffee ground emesis, gross hematemesis Onset (ago): hour(s) Consistency: intermittent Severity: moderate Associated symptoms: denies other symptoms - Related Data Home Medications Medication Instructions Recorded Confirmed Tamsulosin HCl [Flomax 0.4mg 0.4 mg PO DAILY 11/04/17 11/21/18 capsule] Atorvastatin Calcium [Atorvastatin 80 mg PO DAILY 01/10/18 11/21/18 80mg Tab] diclofenac sodium 75 mg 75 mg PO BID 10/17/18 11/21/18 tablet,delayed release Previous Rx's Medication Instructions Recorded clopidogrel 75 mg tablet 75 mg PO DAILY #90 tab 05/16/18 lisinopril 10 mg tablet 10 mg PO DAILY #90 tab 12/16/18 lisinopril 20 1 tab PO DAILY #90 tab 12/16/18 mg-hydrochlorothiazide 12.5 mg tablet lisinopril 20 See Rx Instructions .ROUTE 12/16/18 mg-hydrochlorothiazide 12.5 mg .COMPLEX #30 tablet tablet rivaroxaban 20 mg tablet 20 mg PO HS #30 tab 12/16/18 bisoprolol fumarate 5 mg tablet 5 mg PO BID #60 tab 01/17/19 Allergies Allergy/AdvReac Type Severity Reaction Status Date / Time No Known Allergies Allergy Verified 04/20/19 05:53 [facility] History - Hepatitis A Screen Drug use history?: No High risk sexual behaviors?: No History of sexually transmitted infection?: No Currently employed?: No Childcare worker?: No Do you have indoor plumbing?: Yes Do you have electricity?: Yes Attestation statement:: This patient has been screened for Hepatitis A risk factors. I have reviewed the patient's past medical history: Yes Medical History: Reports:: Arrhythmia, Atrial Fibrillation, Chronic Obstructive Pulmonary Disease (COPD), Coronary Artery Disease, Hyperlipidemia, Hypertension Denies:: Cancer, Diabetes Mellitus Type 1, Diabetes Mellitus Type 2, Internal Pacemaker, MRSA Other Medical History: Reports: Arthritis Laterality Cases: Bilateral: Tonsillectomy Other Surgeries: Yes: Cardiac Catheterization, Coronary Stent. No: Pacemaker Amputation: No Fractures: No Comment: Cardioversion,BRENDA - Social History Smoking Status: Current some day smoker Tobacco Type: cigarettes # Packs/Day (cigarettes): 1 #Yrs smoked (if former smoker): 64 Alcohol Intake: never Alcohol Intake Frequency:: holidays/special occasions only Substance Use Type: denies use Occupational Status: retired Housing: house Household Members: spouse Family Hx:: Cancer ROS Obtained: Yes All systems reviewed & no additional complaints - Constitutional Constitutional: Denies fever(s) - Eyes Eyes: Denies change in vision - ENT Ears, Nose, Mouth, and Throat: Denies sore throat - Cardiovascular Cardiovascular: Denies chest pain - Respiratory Respiratory: No cough - Gastrointestinal Gastrointestingal: Reports: as per HPI, coffee ground emesis, vomiting blood - Genitourinary Male Genitourinary: Denies flank pain - Musculoskeletal Musculoskeletal: Denies joint pain, Denies joint swelling - Integumentary/Breasts Skin/Breast: Denies rash - Neurologic Neurologic: Denies focal weakness, Denies seizure-like activity Physical Exam - General General appearance: alert, in no apparent distress - Head Head exam: normocephalic - Eye Eye exam: Present: PERRL, EOMI. Absent: scleral icterus - ENT ENT exam: Present: mucous membranes dry - Neck Neck exam: Present: trachea midline - Respiratory Respiratory exam: Present: normal lung sounds bilaterally. Absent: respiratory distress - Cardiovascular Cardiovascular exam: Present: regular rate, systolic murmur - Abdominal Exam Abdominal exam: Present: soft, tenderness, other (has g tube ). Absent: guarding, rebound Abdominal tenderness: Present: epigastrium, moderate - Extremities Exam Extremities exam: Present: full ROM - Neurological Exam Neurological exam: Present: alert, CN II-XII intact - Psychiatric Psychiatric exam: Present: normal affect - Skin Skin exam: Absent: rash
--- NOTE | 2019-06-10 01:27 | History & Physical Report ---
*Admission Date: 06/10/19 *Chief complaint: nausea and vomiting *History of present illness: 73-year-old white male with known coronary artery disease s/p stenting to his circumflex artery in October 2017, Extensive tobacco use history, Recent CVA 04/20/19, and recent PEG tube placement 3 weeks ago who we have recently begun to care for at [facility]. He has been having emesis since placement of his G-tube. Last night I was contacted by his nurse the [facility] who requested transfer due to intractable nausea and vomiting and concern for coffee-ground emesis. He presented to the ER and work-up was begun. Labs stable with mild anemia but no significant change in hemoglobin or hematocrit. CT abdomen pelvis showed good placement of his G-tube, no free air, but diffuse constipation. N.p.o. overnight initiated on fluids. Admitted to medicine for further management. This morning patient has no complaints. Remains afebrile and hemodynamically stable. No further vomiting overnight. Had poor response to bowel regimen overnight. Denies chest pain, shortness of breath, nausea, headache. Does complain of dizziness that is worse when he stands and this causes him to feel nauseous. No bowel movement this morning. Spoke with daughter after rounds, updated her on plan [facility] History I have reviewed the patient's past medical history: Yes Medical History: Reports:: Arrhythmia, Atrial Fibrillation, Chronic Obstructive Pulmonary Disease (COPD), Coronary Artery Disease, Hyperlipidemia, Hypertension Denies:: Cancer, Diabetes Mellitus Type 1, Diabetes Mellitus Type 2, Internal Pacemaker, MRSA *Have you ever received a pneumonia vaccine?: Yes *Have you received a flu vaccine this season?: Yes Other Medical History: Reports: Arthritis Laterality Cases: Bilateral: Tonsillectomy Other Surgeries: Yes: Cardiac Catheterization, Coronary Stent. No: Pacemaker Amputation: No Fractures: No - *Social History Smoking Status: Current some day smoker Tobacco Type: cigarettes # Packs/Day (cigarettes): 1 #Yrs smoked (if former smoker): 64 Alcohol Intake: never Alcohol Intake Frequency:: holidays/special occasions only Substance Use Type: denies use *Occupational Status:: retired Housing: house Household Members: spouse *Travel in the last 8 weeks: None Family Hx:: Cancer Review of Systems - Review of Systems Review of systems:: pertinent systems reviewed and negative unless documented below - *Neurologic Denies localized weakness, Denies seizure-like activity Meds Home Medications Medication Instructions Recorded Confirmed Type Atorvastatin Calcium [Atorvastatin 80 mg PO DAILY 01/10/18 06/10/19 History 80mg Tab] Acetaminophen [Tylenol 500mg 500 mg PO Q4HP PRN 06/10/19 06/10/19 History tablet] Bisacodyl [Bisacodyl 10mg Supp] 10 mg RC DAILYP PRN 06/10/19 06/10/19 History Fluoxetine HCl 10 mg PO DAILY 06/10/19 06/10/19 History Guaifenesin/Dextromethorphan 10 ml PO Q6 06/10/19 06/10/19 History [Guaifenesin-Dm 200-20 mg/10 ml] Ipratropium/Albuterol Sulfate 3 ml IH Q6 06/10/19 06/10/19 History [Duoneb 3mL neb] Melatonin 3 mg PO HS 06/10/19 06/10/19 History Metoclopramide HCl [Reglan 10mg 10 mg PO TID 06/10/19 06/10/19 History Tab] Metoprolol Tartrate [Lopressor 25 mg PO BID 06/10/19 06/10/19 History 25mg tablet] Nicotine [Nicotine Patch 21 mg TD DAILY 06/10/19 06/10/19 History 21mg/24hrs] Omeprazole 20 mg PO DAILY 06/10/19 06/10/19 History Ondansetron HCl [Zofran 4mg Tab*] 4 mg PO Q6HP PRN 06/10/19 06/10/19 History Simethicone [Infants' Gas Relief] 40 mg PO TID PRN 06/10/19 06/10/19 History Terazosin HCl [Hytrin 5mg Capsule] 5 mg G-TUBE HS 06/10/19 06/10/19 History hydrOXYzine HCL [Hydroxyzine HCl] 25 mg PO QID 06/10/19 06/10/19 History polyethylene glycoL 3350 [Miralax 17 gm PO DAILY 06/10/19 06/10/19 History 17gm Packet] Allergies Allergy/AdvReac Type Severity Reaction Status Date / Time No Known Allergies Allergy Verified 04/20/19 05:53 Exam Vital signs and Labs for Last 24 Hours: Temp Pulse Resp BP Pulse Ox 98.1 F 63 17 139/64 95 06/09/19 22:15 06/09/19 22:15 06/09/19 22:15 06/09/19 22:15 06/09/19 22:15 Laboratory Results - last 24 hr 06/09/19 20:20: WBC 7.4, RBC 3.93 L, Hgb 12.2 L, Hct 38.1 L, MCV 97.1 H, MCH 31.0, MCHC 31.9, RDW 14.6, Plt Count 381, MPV 7.7, Neut % (Auto) 75.4, Lymph % (Auto) 18.0, [place] % (Auto) 4.8, Eos % (Auto) 1.3, Baso % (Auto) 0.4, Neut # (Auto) 5.6, Lymph # (Auto) 1.3, [place] # (Auto) 0.4, Eos # (Auto) 0.1, Baso # (Auto) 0.0 06/09/19 20:20: Sodium 140, Potassium 4.1, Chloride 102, Carbon Dioxide 28, Anion Gap 14.1, BUN 16, Creatinine 1.09 D, Estimated Creat Clear 59, Estimated GFR 66, Est GFR ( Amer) 80 D, Glucose 87, Calcium 9.1, Total Bilirubin 1.0, AST 27, ALT 30, Alkaline Phosphatase 125 H, C-Reactive Protein 0.5, Total Protein 6.8, Albumin 3.2 L, Globulin 3.6 H, Albumin/Globulin Ratio 0.9 L 06/09/19 20:20: ESR 61 H I & O for Last 24 hours: Intake & Output 06/07/19 06/08/19 06/09/19 06/10/19 23:59 23:59 23:59 23:59 Weight 71.214 kg - *Routine HEENT Exam Head: Present: normocephalic Eye: Present: EOMI, PERRL ENT: Present: mucous membranes moist - *Routine Neck Exam Present: supple. Absent: lymphadenopathy - *Routine Respiratory Exam Present: CTA bilaterally Comments: Transmitted pper airway sounds that clear with cough - *Routine Cardiovascular Exam Present: RRR - *Routine Abdominal Exam Present: soft, normoactive bowel sounds. Absent: tenderness Comments: PEG tube in place in left upper abdomen, clean dry and intact, no significant erythema - *Routine Extremities Exam Absent: cyanosis, clubbing, edema - *Routine Skin Exam Present: warm. Absent: rash - *Routine Neurological Exam Present: alert, oriented X3 Strength 5 out of 5 in bilateral upper and lower extremities, mild left-sided facial asymmetry with smile. Equal eye movement bilaterally. No deviation of tongue when extruded. Voice somewhat gravelly Assessment and Plan (1) History of CVA with residual deficit Current visit: Yes Status: Acute Category: Medical Code(s): I69.30 - Unspecified sequelae of cerebral infarction (2) Constipation Current visit: Yes Status: Acute Category: Medical Code(s): K59.00 - Constipation, unspecified (3) Intractable nausea and vomiting Current visit: Yes Status: Acute Category: Medical Code(s): R11.2 - Nausea with vomiting, unspecified (4) UGIB (upper gastrointestinal bleed) Current visit: Yes Status: Acute Category: Medical Code(s): K92.2 - Gastrointestinal hemorrhage, unspecified (5) Atrial fibrillation Current visit: No Status: Chronic Qualifiers: Atrial fibrillation type: paroxysmal Qualified Code(s): I48.0 - Paroxysmal atrial fibrillation Category: Medical Code(s): I48.91 - Unspecified atrial fibrillation (6) HTN (hypertension) Current visit: No Status: Chronic Qualifiers: Hypertension type: essential hypertension Qualified Code(s): I10 - Essential (primary) hypertension Category: Medical Code(s): I10 - Essential (primary) hypertension (7) Stented coronary artery Current visit: No Status: Chronic Category: Surgical Code(s): Z95.5 - Presence of coronary angioplasty implant and graft - Assessment and plan all Dx Assessment and Plan for all problems:: 73-year-old gentleman who presents with intractable nausea and vomiting in the setting of stroke less than 2 months ago and PEG tube placement a month ago. At this time he has had no further nausea or vomiting overnight. Will have physical therapy, Occupational Therapy, speech therapy, nutrition assess the patient today and give recommendations. Patient has been tolerating very little p.o. intake over the past month and is gotten predominantly tube fed nutrition. Reassess for swallowing today. Resume tube feeds pending nutrition consult. Additionally has significant constipation on CT abdomen. Will get aggressive today about bowel regimen and see if this helps with his nausea and vomiting. Continues to require inpatient management as we gradually reintroduce nutrition per tube and address bowel obstruction. We will also work on obtaining records from [facility] to better understand what has been done so far with assessments and to have a baseline for comparison.
[2019-06-10 06:14] LABS: Basophils # 0.1 K/mm3 (0-0.2); Lymphocytes # 1.5 K/mm3 (0.7-4.5); Monocytes # 0.4 K/mm3 (0.1-1.0); White Blood Count 6.6 K/mm3 (4.8-10.8)
[2019-06-10 06:22] LABS: Eosinophils # 0.1 K/mm3 (0.0-0.4); Eosinophils % 2.2 % (0.1-12.0); Lymphocytes % 22.1 % (10-50); Mean Corpuscular HGB Conc 31.8 g/dL (31.8-35.4); Mean Corpuscular Volume 94.7 fl (80-94); Mean Platelet Volume 7.3 fl (7.4-10.4); Monocytes % 6.5 % (1.7-9.3); Neutrophils # 4.5 K/mm3 (1.8-7.8); Neutrophils % 68.3 % (37.0-80.0); Platelet Count 320 K/mm3 (142-424); Red Blood Count 3.59 M/mm3 (4.60-6.20); Red Cell Distribution Width 14.2 % (11.5-17.5)
[2019-06-10 06:24] LABS: Hemoglobin 10.8 g/dL (14.1-18.0)
[2019-06-10 06:35] LABS: Calcium 8.4 mg/dL (8.5-10.1)
--- NOTE | 2019-06-10 07:41 | Pharmacy Consult Notes ---
[facility] Pharmacy VTE Monitoring - Patient Demographics Admission date: 06/09/19 Report Date: 06/10/19 Time: 07:41 Allergies/Adverse Reactions: Patient Allergies No Known Allergies Allergy (Verified 04/20/19 05:53) Height: 1.78 m Weight: 72.717 kg Patient Problems: Current Active Problems UGIB (upper gastrointestinal bleed) (Acute) History of CVA with residual deficit (Acute) Constipation (Acute) Intractable nausea and vomiting (Acute) - VTE Risk Labs: VTE Related Lab Results Hgb 10.8 g/dL (14.1-18.0) L D 06/10/19 05:28 Hct 34.0 % (42.0-52.0) L 06/10/19 05:28 Plt Count 320 K/mm3 (142-424) 06/10/19 05:28 BUN 12 mg/dL (7-18) 06/10/19 05:28 Creatinine 0.88 mg/dL (0.70-1.30) 06/10/19 05:28 Estimated Creat Clear 66 mL/min (50-200) 06/10/19 05:28 VTE Risk Level: Low Risk - Prophylaxis VTE Prophylaxis Ordered?: Yes Types of VTE Prophylaxis: TEDS Knee High Location of Applied Device: Bilateral Lower Extremeties - VTE Diagnosis Confirmed Treatment or plan recommended: Continue Current Treatment
[2019-06-11 06:11] LABS: Basophils % 0.5 % (0.1-2.0); Eosinophils # 0.1 K/mm3 (0.0-0.4); Eosinophils % 1.5 % (0.1-12.0); Hematocrit 33.1 % (42.0-52.0); Hemoglobin 10.1 g/dL (14.1-18.0); Lymphocytes % 14.9 % (10-50); Mean Corpuscular HGB Conc 30.5 g/dL (31.8-35.4); Mean Corpuscular Volume 98.7 fl (80-94); Mean Platelet Volume 7.1 fl (7.4-10.4); Monocytes # 0.4 K/mm3 (0.1-1.0); Monocytes % 6.2 % (1.7-9.3); Neutrophils # 5.2 K/mm3 (1.8-7.8); Neutrophils % 76.9 % (37.0-80.0); Platelet Count 290 K/mm3 (142-424); Red Blood Count 3.36 M/mm3 (4.60-6.20); Red Cell Distribution Width 14.3 % (11.5-17.5); White Blood Count 6.8 K/mm3 (4.8-10.8)
[2019-06-11 06:21] LABS: Anion Gap 16.1 mEq/L (5-15); Calcium 8.3 mg/dL (8.5-10.1)
--- NOTE | 2019-06-11 08:25 | Progress Note ---
Internal Medicine - PN: Subj *Date: 06/11/19 *Time: 08:23 Interval history: Overnight patient very well, had a couple of soft pudding consistency bowel movements and he feels better. He has not attempted to eat anything. The rest of his speech therapy evaluation is pending. Patient denies pain or breathing difficulties. Exam Vital signs and Labs for Last 24 Hours: Temp Pulse Resp BP Pulse Ox 97.9 F 77 16 114/61 100 06/11/19 08:00 06/11/19 08:00 06/11/19 08:00 06/11/19 08:00 06/11/19 08:00 Laboratory Results - last 24 hr 06/11/19 05:45: WBC 6.8, RBC 3.36 L, Hgb 10.1 L, Hct 33.1 L, MCV 98.7 H, MCH 30.1, MCHC 30.5 L, RDW 14.3, Plt Count 290, MPV 7.1 L, Neut % (Auto) 76.9, Lymph % (Auto) 14.9, [place] % (Auto) 6.2, Eos % (Auto) 1.5, Baso % (Auto) 0.5, Neut # (Auto) 5.2, Lymph # (Auto) 1.0, [place] # (Auto) 0.4, Eos # (Auto) 0.1, Baso # (Auto) 0.0 06/11/19 05:45: Sodium 140, Potassium 3.1 L D, Chloride 105, Carbon Dioxide 22, Anion Gap 16.1 H, BUN 13, Creatinine 0.90, Estimated Creat Clear 67, Estimated GFR 82, Est GFR ( Amer) 100, Glucose 91, Calcium 8.3 L, Magnesium 1.8 I & O for Last 24 hours: Intake & Output 06/08/19 06/09/19 06/10/19 06/11/19 11:59 11:59 11:59 11:59 Intake Total 327 / 327 1538 / 1538 Output Total 350 / 350 Balance 327 / 327 1188 / 1188 Weight 160 lb 5.017 oz 162 lb 8 oz Narrative: Patient is alert. Pleasant. Right facial droop as previously noted. Hemiparesis previously noted. Otherwise patient is alert and talkative. Oropharynx clear, G-tube site looks good, infusing 25 mL's per hour easily. Abdomen is soft and nontender. Anterior lung juan are clear, heart rate regular. Assessment and Plan (1) History of CVA with residual deficit Current visit: Yes Status: Acute Category: Medical Code(s): I69.30 - Unspecified sequelae of cerebral infarction (2) Constipation Current visit: Yes Status: Acute Category: Medical Code(s): K59.00 - Constipation, unspecified (3) Intractable nausea and vomiting Current visit: Yes Status: Acute Category: Medical Code(s): R11.2 - Nausea with vomiting, unspecified (4) UGIB (upper gastrointestinal bleed) Current visit: Yes Status: Acute Category: Medical Code(s): K92.2 - Gastrointestinal hemorrhage, unspecified (5) Atrial fibrillation Current visit: No Status: Chronic Qualifiers: Atrial fibrillation type: paroxysmal Qualified Code(s): I48.0 - Paroxysmal atrial fibrillation Category: Medical Code(s): I48.91 - Unspecified atrial fibrillation (6) HTN (hypertension) Current visit: No Status: Chronic Qualifiers: Hypertension type: essential hypertension Qualified Code(s): I10 - Essential (primary) hypertension Category: Medical Code(s): I10 - Essential (primary) hypertension (7) Stented coronary artery Current visit: No Status: Chronic Category: Surgical Code(s): Z95.5 - Presence of coronary angioplasty implant and graft (8) Hypokalemia Current visit: Yes Status: Acute Category: Medical Code(s): E87.6 - Hypokalemia - Assessment and plan all Dx Assessment and Plan for all problems:: Several issues ongoing today: Patient's constipation seems to have improved. We will check a flatplate of the abdomen. If still with considerable stool backup will try mag citrate per G- tube. Hypokalemia will be replaced per G-tube. No evidence of further neurologic changes. No evidence of GI bleeding. Swallowing issues will be evaluated by speech therapy today. If patient can swallow and if he is tolerates feeds without nausea we will transfer back to [facility] for ongoing potassium monitoring and transition to p.o. feedings
--- NOTE | 2019-06-11 14:35 | Consult Report ---
*Admission Date: 06/09/19 *Reason for consult:: Postprandial emesis; request for possible esophagogastroduodenoscopy *History of present illness: This is a 73-year-old gentleman seen in consultation from Dr. Lovell for possible esophagogastroduodenoscopy. A truncated portion of the HPI from his admission H&P is forwarded below: 73-year-old white male with known coronary artery disease s/p stenting to his circumflex artery in October 2017...Recent CVA 04/20/19, and recent PEG tube placement 3 weeks ago who we have recently begun to care for at [facility]. He has been having emesis since placement of his G-tube...nurse...[facility] who requested transfer due to intractable nausea and vomiting and concern for coffee-ground emesis...Denies chest pain, shortness of breath, nausea, headache. Does complain of dizziness that is worse when he stands and this causes him to feel nauseous. No bowel movement this morning. Spoke with daughter after rounds, updated her on plan Review of Systems - Review of Systems Review of systems:: unable to obtain - *Neurologic Denies localized weakness, Denies seizure-like activity [facility] History Medical History: Reports:: Aneurysm, Arrhythmia, Atrial Fibrillation, Chronic Obstructive Pulmonary Disease (COPD), Coronary Artery Disease, Hyperlipidemia, Hypertension Denies:: Cancer, Diabetes Mellitus Type 1, Diabetes Mellitus Type 2, Internal Pacemaker, MRSA *Have you ever received a pneumonia vaccine?: Yes *Have you received a flu vaccine this season?: Yes Other Medical History: Reports: Arthritis Laterality Cases: Bilateral: Tonsillectomy Other Surgeries: Yes: Cardiac Catheterization, Coronary Stent. No: Pacemaker Amputation: No Fractures: No - *Social History Smoking Status: Former smoker Tobacco Type: cigarettes # Packs/Day (cigarettes): 1 #Yrs smoked (if former smoker): 64 Alcohol Intake: never Alcohol Intake Frequency:: holidays/special occasions only Substance Use Type: denies use *Occupational Status:: retired Housing: house Household Members: spouse *Travel in the last 8 weeks: None Family Hx:: Cancer, Coronary Artery Disease, Hypertension, Stroke Meds Home Medications Medication Instructions Recorded Confirmed Type Atorvastatin Calcium [Atorvastatin 80 mg PO HS 01/10/18 06/10/19 History 80mg Tab] Acetaminophen [Tylenol 500mg 500 mg PO Q4HP PRN 06/10/19 06/10/19 History tablet] Bisacodyl [Bisacodyl 10mg Supp] 10 mg RC DAILYP PRN 06/10/19 06/10/19 History Fluoxetine HCl 10 mg PO DAILY 06/10/19 06/10/19 History Guaifenesin/Dextromethorphan 10 ml PO Q6 06/10/19 06/10/19 History [Guaifenesin-Dm 200-20 mg/10 ml] Ipratropium/Albuterol Sulfate 3 ml IH Q6H 06/10/19 06/10/19 History [Duoneb 3mL neb] Melatonin 3 mg PO HS 06/10/19 06/10/19 History Metoclopramide HCl [Reglan 10mg 10 mg PO TID 06/10/19 06/10/19 History Tab] Metoprolol Tartrate [Lopressor 6.25 mg PO BID 06/10/19 06/10/19 History 25mg tablet] Nicotine [Nicotine Patch 21 mg TD DAILY 06/10/19 06/10/19 History 21mg/24hrs] Omeprazole 20 mg PO DAILY 06/10/19 06/10/19 History Ondansetron HCl [Zofran 4mg Tab*] 4 mg PO Q6HP PRN 06/10/19 06/10/19 History Rivaroxaban [Xarelto 20mg Tablet*] 20 mg PO HS 06/10/19 06/10/19 History Sennosides [Senna] 10 ml PO BID 06/10/19 06/10/19 History Simethicone [Infants' Gas Relief] 40 mg PO TIDP PRN 06/10/19 06/10/19 History Sodium Chloride For Inhalation 3 ml IH Q4HP PRN 06/10/19 06/10/19 History [Sodium Chloride] Terazosin HCl [Hytrin 5mg Capsule] 5 mg PO HS 06/10/19 06/10/19 History hydrOXYzine HCL [Hydroxyzine HCl] 25 mg PO QIDP PRN 06/10/19 06/10/19 History polyethylene glycoL 3350 [Miralax 17 gm PO DAILY 06/10/19 06/10/19 History 17gm Packet] Allergies Allergy/AdvReac Type Severity Reaction Status Date / Time No Known Allergies Allergy Verified 04/20/19 05:53 Exam Vital signs and Labs for Last 24 Hours: Temp Pulse Resp BP Pulse Ox 97.9 F 77 16 114/61 100 06/11/19 08:00 06/11/19 08:00 06/11/19 08:00 06/11/19 08:00 06/11/19 08:00 Laboratory Results - last 24 hr 06/11/19 05:45: WBC 6.8, RBC 3.36 L, Hgb 10.1 L, Hct 33.1 L, MCV 98.7 H, MCH 30.1, MCHC 30.5 L, RDW 14.3, Plt Count 290, MPV 7.1 L, Neut % (Auto) 76.9, Lymph % (Auto) 14.9, [place] % (Auto) 6.2, Eos % (Auto) 1.5, Baso % (Auto) 0.5, Neut # (Auto) 5.2, Lymph # (Auto) 1.0, [place] # (Auto) 0.4, Eos # (Auto) 0.1, Baso # (Auto) 0.0 06/11/19 05:45: Sodium 140, Potassium 3.1 L D, Chloride 105, Carbon Dioxide 22, Anion Gap 16.1 H, BUN 13, Creatinine 0.90, Estimated Creat Clear 67, Estimated GFR 82, Est GFR ( Amer) 100, Glucose 91, Calcium 8.3 L, Magnesium 1.8 I & O for Last 24 hours: Intake & Output 06/09/19 06/10/19 06/11/19 06/12/19 11:59 11:59 11:59 11:59 Intake Total 327 / 327 1538 / 1538 120 / 120 Output Total 350 / 350 Balance 327 / 327 1188 / 1188 120 / 120 Weight 160 lb 5.017 oz 162 lb 8 oz - Constitutional no acute distress - *Routine Respiratory Exam Absent: respiratory distress - *Routine Cardiovascular Exam Present: RRR - *Routine Abdominal Exam Present: soft Comments: PEG appears to be in good position. The tube is easily rotatable. Results - Labs 06/11/19 05:45 06/11/19 05:45 Laboratory Results - last 24 hr 06/11/19 05:45: WBC 6.8, RBC 3.36 L, Hgb 10.1 L, Hct 33.1 L, MCV 98.7 H, MCH 30.1, MCHC 30.5 L, RDW 14.3, Plt Count 290, MPV 7.1 L, Neut % (Auto) 76.9, Lymph % (Auto) 14.9, [place] % (Auto) 6.2, Eos % (Auto) 1.5, Baso % (Auto) 0.5, Neut # (Auto) 5.2, Lymph # (Auto) 1.0, [place] # (Auto) 0.4, Eos # (Auto) 0.1, Baso # (Auto) 0.0 06/11/19 05:45: Sodium 140, Potassium 3.1 L D, Chloride 105, Carbon Dioxide 22, Anion Gap 16.1 H, BUN 13, Creatinine 0.90, Estimated Creat Clear 67, Estimated GFR 82, Est GFR ( Amer) 100, Glucose 91, Calcium 8.3 L, Magnesium 1.8 Assessment and Plan (1) History of CVA with residual deficit Current visit: Yes Status: Acute Category: Medical Code(s): I69.30 - Unspecified sequelae of cerebral infarction (2) Constipation Current visit: Yes Status: Acute Category: Medical Code(s): K59.00 - Constipation, unspecified (3) Intractable nausea and vomiting Current visit: Yes Status: Acute Category: Medical Code(s): R11.2 - Nausea with vomiting, unspecified The patient seems to have significant and immediate nausea/emesis after p.o. intake. He did undergo a percutaneous endoscopic gastrostomy tube 3 weeks ago and would unlikely have a mass lesion in the esophagus/proximal stomach as it would most likely have been visualized at this time. The PEG does appear to be in good position and would unlikely be causing a gastric outlet obstruction. In addition he does seem to tolerate PEG feeds. He could possibly have fairly sev ere gastroparesis and a gastric emptying study may be helpful; however, initially proceeding with a formal UGI and a barium or gastrografin study of the PEG would be most beneficial. (4) UGIB (upper gastrointestinal bleed) Current visit: Yes Status: Acute Category: Medical Code(s): K92.2 - Gastrointestinal hemorrhage, unspecified (5) Atrial fibrillation Current visit: No Status: Chronic Qualifiers: Atrial fibrillation type: paroxysmal Qualified Code(s): I48.0 - Paroxysmal atrial fibrillation Category: Medical Code(s): I48.91 - Unspecified atrial fibrillation (6) HTN (hypertension) Current visit: No Status: Chronic Qualifiers: Hypertension type: essential hypertension Qualified Code(s): I10 - Essential (primary) hypertension Category: Medical Code(s): I10 - Essential (primary) hypertension (7) Stented coronary artery Current visit: No Status: Chronic Category: Surgical Code(s): Z95.5 - Presence of coronary angioplasty implant and graft (8) Hypokalemia Current visit: Yes Status: Acute Category: Medical Code(s): E87.6 - Hypokalemia
[2019-06-12 06:20] LABS: Basophils % 0.6 % (0.1-2.0); Eosinophils # 0.1 K/mm3 (0.0-0.4); Eosinophils % 1.3 % (0.1-12.0); Hematocrit 32.9 % (42.0-52.0); Hemoglobin 10.5 g/dL (14.1-18.0); Lymphocytes # 1.4 K/mm3 (0.7-4.5); Lymphocytes % 24.7 % (10-50); Mean Corpuscular HGB Conc 31.8 g/dL (31.8-35.4); Mean Corpuscular Volume 95.3 fl (80-94); Mean Platelet Volume 7.8 fl (7.4-10.4); Monocytes # 0.4 K/mm3 (0.1-1.0); Monocytes % 6.2 % (1.7-9.3); Neutrophils # 3.9 K/mm3 (1.8-7.8); Neutrophils % 67.2 % (37.0-80.0); Platelet Count 295 K/mm3 (142-424); Red Blood Count 3.46 M/mm3 (4.60-6.20); Red Cell Distribution Width 14.1 % (11.5-17.5); White Blood Count 5.8 K/mm3 (4.8-10.8)
[2019-06-12 06:31] LABS: Anion Gap 12.2 mEq/L (5-15); Calcium 8.4 mg/dL (8.5-10.1)
--- NOTE | 2019-06-12 09:02 | Progress Note ---
Internal Medicine - PN: Subj *Date: 06/12/19 *Time: 08:30 Interval history: Patient made stable overnight. No acute events. Continues to have soft bowel movements. No nausea or vomiting. Blood pressure very labile with positive orthostatic findings. Pleasant on interview this morning. Denied nausea, vomiting, diarrhea, headache, chest pain, shortness of breath. Exam Vital signs and Labs for Last 24 Hours: Temp Pulse Resp BP Pulse Ox 98.2 F 91 H 16 119/70 96 06/12/19 07:47 06/12/19 07:47 06/12/19 07:47 06/12/19 07:47 06/12/19 07:47 Laboratory Results - last 24 hr 06/12/19 06:08: WBC 5.8, RBC 3.46 L, Hgb 10.5 L, Hct 32.9 L, MCV 95.3 H, MCH 30.3, MCHC 31.8, RDW 14.1, Plt Count 295, MPV 7.8, Neut % (Auto) 67.2, Lymph % (Auto) 24.7, [place] % (Auto) 6.2, Eos % (Auto) 1.3, Baso % (Auto) 0.6, Neut # (Auto) 3.9, Lymph # (Auto) 1.4, [place] # (Auto) 0.4, Eos # (Auto) 0.1, Baso # (Auto) 0.0 06/12/19 06:08: Sodium 138, Potassium 4.2 D, Chloride 106, Carbon Dioxide 24, Anion Gap 12.2, BUN 9 D, Creatinine 0.87, Estimated Creat Clear 66, Estimated GFR 86, Est GFR ( Amer) 104, Glucose 94, Calcium 8.4 L I & O for Last 24 hours: Intake & Output 06/09/19 06/10/19 06/11/19 06/12/19 23:59 23:59 23:59 23:59 Intake Total 1040 / 1040 1664 / 1664 0 / 0 Output Total 350 / 650 300 / 300 Balance 1040 / 1040 1314 / 1014 -300 / -300 Weight 71.214 kg 72.717 kg 73.709 kg 72.603 kg Narrative: - *Routine HEENT Exam Head: Present: normocephalic Eye: Present: EOMI, PERRL ENT: Present: mucous membranes moist - *Routine Neck Exam Present: supple. Absent: lymphadenopathy - *Routine Respiratory Exam Present: CTA bilaterally Comments: Transmitted upper airway sounds that clear with cough - *Routine Cardiovascular Exam Present: RRR - *Routine Abdominal Exam Present: soft, normoactive bowel sounds. Absent: tenderness Comments: PEG tube in place in left upper abdomen, clean dry and intact, no significant erythema - *Routine Extremities Exam Absent: cyanosis, clubbing, edema - *Routine Skin Exam Present: warm. Absent: rash - *Routine Neurological Exam Present: alert, oriented X3 Strength 5 out of 5 in bilateral upper and lower extremities, mild left-sided facial asymmetry with smile. Equal eye movement bilaterally. No deviation of tongue when extruded. Voice somewhat gravelly Assessment and Plan (1) History of CVA with residual deficit Current visit: Yes Status: Acute Category: Medical Code(s): I69.30 - Unspecified sequelae of cerebral infarction (2) Constipation Current visit: Yes Status: Acute Category: Medical Code(s): K59.00 - Constipation, unspecified (3) Intractable nausea and vomiting Current visit: Yes Status: Acute Category: Medical Code(s): R11.2 - Nausea with vomiting, unspecified (4) UGIB (upper gastrointestinal bleed) Current visit: Yes Status: Acute Category: Medical Code(s): K92.2 - Gastrointestinal hemorrhage, unspecified (5) Atrial fibrillation Current visit: No Status: Chronic Qualifiers: Atrial fibrillation type: paroxysmal Qualified Code(s): I48.0 - Paroxysmal atrial fibrillation Category: Medical Code(s): I48.91 - Unspecified atrial fibrillation (6) HTN (hypertension) Current visit: No Status: Chronic Qualifiers: Hypertension type: essential hypertension Qualified Code(s): I10 - Essential (primary) hypertension Category: Medical Code(s): I10 - Essential (primary) hypertension (7) Stented coronary artery Current visit: No Status: Chronic Category: Surgical Code(s): Z95.5 - Presence of coronary angioplasty implant and graft (8) Hypokalemia Current visit: Yes Status: Acute Category: Medical Code(s): E87.6 - Hypokalemia - Assessment and plan all Dx Assessment and Plan for all problems:: Continue to address bowel regimen. Plan for assessment of digestive tract with upper GI and PEG tube imaging. Will advance diet pending findings. Surgery consulted, appreciate recommendations.
[2019-06-13 06:56] LABS: Basophils % 0.5 % (0.1-2.0); Eosinophils # 0.1 K/mm3 (0.0-0.4); Eosinophils % 1.5 % (0.1-12.0); Hematocrit 32.2 % (42.0-52.0); Hemoglobin 10.4 g/dL (14.1-18.0); Lymphocytes # 1.3 K/mm3 (0.7-4.5); Lymphocytes % 22.8 % (10-50); Mean Corpuscular HGB Conc 32.1 g/dL (31.8-35.4); Mean Corpuscular Volume 94.5 fl (80-94); Mean Platelet Volume 7.3 fl (7.4-10.4); Monocytes # 0.4 K/mm3 (0.1-1.0); Monocytes % 6.6 % (1.7-9.3); Neutrophils # 3.8 K/mm3 (1.8-7.8); Neutrophils % 68.5 % (37.0-80.0); Platelet Count 301 K/mm3 (142-424); Red Blood Count 3.41 M/mm3 (4.60-6.20); Red Cell Distribution Width 14.1 % (11.5-17.5); White Blood Count 5.5 K/mm3 (4.8-10.8)
[2019-06-13 07:11] LABS: Anion Gap 13.7 mEq/L (5-15); Calcium 8.4 mg/dL (8.5-10.1)
--- NOTE | 2019-06-13 09:02 | Discharge Summary ---
General - General Admission date:: 06/10/19 Discharge date: 06/13/19 HPI HPI: 73-year-old white male with known coronary artery disease s/p stenting to his circumflex artery in October 2017, Extensive tobacco use history, Recent CVA 04/20/19, and recent PEG tube placement 3 weeks ago who we have recently begun to care for at [facility]. He has been having emesis since placement of his G-tube. Last night I was contacted by his nurse the [facility] who requested transfer due to intractable nausea and vomiting and concern for coffee-ground emesis. He presented to the ER and work-up was begun. Labs stable with mild anemia but no significant change in hemoglobin or hematocrit. CT abdomen pelvis showed good placement of his G-tube, no free air, but diffuse constipation. N.p.o. overnight initiated on fluids. Admitted to medicine for f urther management. This morning patient has no complaints. Remains afebrile and hemodynamically stable. No further vomiting overnight. Had poor response to bowel regimen overnight. Denies chest pain, shortness of breath, nausea, headache. Does complain of dizziness that is worse when he stands and this causes him to feel nauseous. No bowel movement this morning. Spoke with daughter after rounds, updated her on plan Hospital Course Hospital Course: Patient admitted due to intractable nausea and vomiting, weight loss, inability to tolerate feeds. Had extensive work-up with speech therapy and surgery with multiple imaging studies and swallow assessments showing that he had the ability to tolerate good p.o. intake. Family stressed significance during admission of the importance and allowing him to eat orally so decision was made to continue p.o. nutrition and hold on G-tube feeds pending further assessment in the outpatient setting. If patient becomes intolerant of oral intake, recommend nutrition at [facility] reassess for possible PEG tube feed supplementation such as overnight feeds with ability to take in oral intake during the day. We will monitor for changes in the outpatient setting as we follow him closely at the [facility]. Additionally patient found to have constipation, initiated on bowel regimen. It appears that medications have an impact negatively on his stomach and when he takes them too fast he has had episodes of vomiting. However taking them slowly seems to be better tolerated. Would recommend MiraLAX, senna, Reglan regimen through the tube as opposed to oral as long as the family is amenable to this. At this time he remains hemodynamically stable (variable orthostasis that this i s not new), afebrile, on room air. Denies chest pain or shortness of breath. Plan to discharge with close follow-up Objective Vital signs: Temp Pulse Resp BP Pulse Ox 97.8 F 71 17 168/80 H 98 06/13/19 07:59 06/13/19 07:59 06/13/19 07:59 06/13/19 07:59 06/13/19 07:59 Narrative: Sitting upright in bed this morning eating breakfast on exam. No acute distress. Tolerating well though slow with his chewing. - *Routine HEENT Exam Head: Present: normocephalic Eye: Present: EOMI, PERRL ENT: Present: mucous membranes moist - *Routine Neck Exam Present: supple. Absent: lymphadenopathy - *Routine Respiratory Exam Present: CTA bilaterally Comments: Transmitted upper airway sounds that clear with cough - *Routine Cardiovascular Exam Present: RRR - *Routine Abdominal Exam Present: soft, normoactive bowel sounds. Absent: tenderness Comments: PEG tube in place in left upper abdomen, clean dry and intact, no significant erythema - *Routine Extremities Exam Absent: cyanosis, clubbing, edema - *Routine Skin Exam Present: warm. Absent: rash No change in neurologic exam with deficits stable in left face. No focal deficits in upper or lower extremities. Results Labs on day of discharge: Labs from last 24 hours 06/13/19 06/13/19 06:35 06:35 WBC 5.5 RBC 3.41 L Hgb 10.4 L Hct 32.2 L MCV 94.5 H MCH 30.4 MCHC 32.1 RDW 14.1 Plt Count 301 MPV 7.3 L Neut % (Auto) 68.5 Lymph % (Auto) 22.8 [place] % (Auto) 6.6 Eos % (Auto) 1.5 Baso % (Auto) 0.5 Neut # (Auto) 3.8 Lymph # (Auto) 1.3 [place] # (Auto) 0.4 Eos # (Auto) 0.1 Baso # (Auto) 0.0 Sodium 138 Potassium 3.7 Chloride 103 Carbon Dioxide 25 Anion Gap 13.7 BUN 8 Creatinine 0.84 Estimated Creat Clear 66 Estimated GFR 89 Est GFR ( Amer) 108 Glucose 96 Calcium 8.4 L Magnesium 1.8 DS: Diagnosis - Discharge Diagnosis (1) History of CVA with residual deficit Status: Chronic (2) Constipation Status: Acute (3) Intractable nausea and vomiting Status: Acute (4) UGIB (upper gastrointestinal bleed) Status: Resolved (5) Atrial fibrillation Status: Chronic (6) HTN (hypertension) Status: Chronic (7) Stented coronary artery Status: Chronic (8) Hypokalemia Status: Resolved Discharge Plan - Patient Discharge Instructions Patient Instructions: How to Care for Your PEG Tube, DI for Gastrointestinal Bleeding, Gastrointestinal Bleeding, Nausea and Vomiting-Adult - Follow up Plan Follow up with: Wiley Lamb MD [Staff Physician] - Disposition: er [facility] Home Medications: Home Medications Medication Instructions Recorded Confirmed Type Atorvastatin Calcium [Atorvastatin 80 mg PO HS 01/10/18 06/10/19 History 80mg Tab] Acetaminophen [Tylenol 500mg 500 mg PO Q4HP PRN 06/10/19 06/10/19 History tablet] Bisacodyl [Bisacodyl 10mg Supp] 10 mg RC DAILYP PRN 06/10/19 06/10/19 History Fluoxetine HCl 10 mg PO DAILY 06/10/19 06/10/19 History Guaifenesin/Dextromethorphan 10 ml PO Q6 06/10/19 06/10/19 History [Guaifenesin-Dm 200-20 mg/10 ml] Ipratropium/Albuterol Sulfate 3 ml IH Q6H 06/10/19 06/10/19 History [Duoneb 3mL neb] Melatonin 3 mg PO HS 06/10/19 06/10/19 History Metoclopramide HCl [Reglan 10mg 10 mg PO TID 06/10/19 06/10/19 History Tab] Metoprolol Tartrate [Lopressor 6.25 mg PO BID 06/10/19 06/10/19 History 25mg tablet] Nicotine [Nicotine Patch 21 mg TD DAILY 06/10/19 06/10/19 History 21mg/24hrs] Ondansetron HCl [Zofran 4mg Tab*] 4 mg PO Q6HP PRN 06/10/19 06/10/19 History Rivaroxaban [Xarelto 20mg Tablet*] 20 mg PO HS 06/10/19 06/10/19 History Sennosides [Senna] 10 ml PO BID 06/10/19 06/10/19 History Simethicone [Infants' Gas Relief] 40 mg PO TIDP PRN 06/10/19 06/10/19 History Sodium Chloride For Inhalation 3 ml IH Q4HP PRN 06/10/19 06/10/19 History [Sodium Chloride] Terazosin HCl [Hytrin 5mg Capsule] 5 mg PO HS 06/10/19 06/10/19 History hydrOXYzine HCL [Hydroxyzine HCl] 25 mg PO QIDP PRN 06/10/19 06/10/19 History polyethylene glycoL 3350 [Miralax 17 gm PO DAILY 06/10/19 06/10/19 History 17gm Packet] Fluoxetine HCl [Prozac 20mg 20 mg PO DAILY 30 Days #30 cap 06/13/19 Rx Capsule] Omeprazole 20 mg PO BID 30 Days #60 tab 06/13/19 Rx dilTIAZem HCL [Cardizem 30mg 30 mg PO BID 30 Days #60 tab 06/13/19 Rx tab] Prescriptions/Medication Reconciliation: New Fluoxetine HCl [Prozac 20mg Capsule] 20 mg PO DAILY 30 Days #30 cap dilTIAZem HCL [Cardizem 30mg tab] 30 mg PO BID 30 Days #60 tab Continued Melatonin 3 mg PO HS Ondansetron HCl [Zofran 4mg Tab*] 4 mg PO Q6HP PRN PRN Reason: Nausea Terazosin HCl [Hytrin 5mg Capsule] 5 mg PO HS Rivaroxaban [Xarelto 20mg Tablet*] 20 mg PO HS Sennosides [Senna] 10 ml PO BID Ipratropium/Albuterol Sulfate [Duoneb 3mL neb] 3 ml IH Q6H polyethylene glycoL 3350 [Miralax 17gm Packet] 17 gm PO DAILY Changed Omeprazole 20 mg PO BID 30 Days #60 tab Held Atorvastatin Calcium [Atorvastatin 80mg Tab] 80 mg PO HS Discontinued Acetaminophen [Tylenol 500mg tablet] 500 mg PO Q4HP PRN PRN Reason: As Needed For Fever Or Pain Guaifenesin/Dextromethorphan [Guaifenesin-Dm 200-20 mg/10 ml] 10 ml PO Q6 Metoclopramide HCl [Reglan 10mg Tab] 10 mg PO TID Sodium Chloride For Inhalation [Sodium Chloride] 3 ml IH Q4HP PRN PRN Reason: INDUCE SPUTUM Bisacodyl [Bisacodyl 10mg Supp] 10 mg RC DAILYP PRN PRN Reason: Constipation Fluoxetine HCl 10 mg PO DAILY hydrOXYzine HCL [Hydroxyzine HCl] 25 mg PO QIDP PRN PRN Reason: Nausea And Vomiting Nicotine [Nicotine Patch 21mg/24hrs] 21 mg TD DAILY Simethicone [Infants' Gas Relief] 40 mg PO TIDP PRN PRN Reason: Gas Pain And Discomfort Metoprolol Tartrate [Lopressor 25mg tablet] 6.25 mg PO BID - Problem Reconciliation Problems Reviewed?: Yes
--- NOTE | 2019-06-13 13:34 | Procedure Note ---
[facility] Procedure Note Procedure Note:: Gastroenterology Consultation Date of Service-June 13, 2019 History of Present Illness: Mr. Peterson is a 73-year-old gentleman who is admitted for nausea, vomiting and coffee ground emesis. The patient had a hemoglobin and hematocrit of 12.2 and 38.8. The patient did have a stroke/CVA in April 2019 and had PEG placement at that time due to swallowing difficulties and nutritional deficits. The patient is now swallowing much better. He has worked with speech pathology to my knowledge. The patient did have a CAT scan on admission that did not show any free air or abnormality with the gastrostomy tube placement. There was marked obstipation/fecal retention on the CAT scan. The patient does show to be taking MiraLAX at [facility]. The patient reports no melena or hematochezia. The patient does report some belching. During hospitalization he has had regurgitation of food content. He continues to have some constipation. Past Medical History: 1. COPD 2. CASHD 3. Osteoarthritis 4. Atrial fibrillation 5. CVA 6. Hypertension 7. Hyperlipidemia Past Surgical History: 1. Coronary stent placement 2. Tonsillectomy 3. Gastrostomy tube placement Medications: 1. Atorvastatin 2. Fluoxetine 3. Reglan 4. Omeprazole 5. Metoprolol 6. Zofran 7. Hydroxyzine 8. MiraLAX ALLERGIES: No known drug allergies Social History: The patient did reside in [place] and is at [facility]. He is . He smokes 1 pack of cigarettes daily and reports no alcohol. Family History: Noncontributory Review of Systems: See chart Physical Exam: Physical Examination: Gen.: The patient is a well-developed well-nourished elderly male individual in no acute distress HEENT: Normocephalic/atraumatic extraocular movements are intact anicteric Neck: Supple no lymphadenopathy Chest: Clear to auscultation Cardiovascular: Regular rate and rhythm Abdomen: Normoactive bowel sounds soft, nontender, G-tube in place with no leakage, minimal distention, no masses, no rebound or guarding no hepatosplenomegaly Extremities: No edema Labs: Hemoglobin 12.2 and hematocrit 38.8 AST 27, ALT 30, alkaline phosphatase 125, sed rate 61. Radiology: See results in chart Impression/Plan: 1. Nausea/vomiting with prior hematemesis. The patient does not appear to be actively bleeding. He does have obstipation/constipation with associated belching. I do feel that his symptoms are motility driven. I would recommend that he resume Reglan 5 to 10 mg by mouth before each meal and at bedtime. I would also regularly use the MiraLAX plus bulk fiber (Benefiber) every morning. I do feel that the patient may have some pharyngeal dysphagia because of his stroke. I would recommend that he be evaluated by speech pathology if they have not seen him. If the patient fails to improve within the next 1 to 2 weeks, I would recommend that we repeat an EGD to evaluate further.
== END 2019-06-13 16:50 ==
LOC: ER 21:05 → 2ND 21:05
PROVIDERS: ADMIT Internal Medicine Adolescent Medicine; ATTEND Internal Medicine Adolescent Medicine
CPT/HCPCS: 36415; 49465; 70371; 74000; 74018; 74177; 74220; 80048; 80053; 83735; 85025; 85651; 86140; 92526; 92611; 94640; 96365; 97110; 97161; 97166; 97530; 97535; 99284; G0378; J2405

== ENCOUNTER 2019-10-21 08:00 | Emergency (ER) | payer MEDICARE, BC, SELFPAY ==
[2019-10-21 08:03] VITALS: BP 147/82; PULSE 67; RESP 16; TEMP 36.7; O2SAT 99; BMI 23.6
--- NOTE | 2019-10-21 08:10 | HMH.EDGENADL ---
ED Disposition Clinical Impression: Intermittent confusion, Peripheral edema Headache Qualifiers: Headache type: unspecified Headache chronicity pattern: acute headache Intractability: not intractable Qualified Code(s): R51 - Headache Disposition: Home, Self-Care Condition on Discharge: Good Instructions: DI for Headache, DI for Peripheral Edema -- Bilateral, DI for Altered Mental Status Additional Instructions: Follow-up with your primary care provider in the office at 11 AM. Additional instructions for HEADACHE: Return immediately if worsening headache, worsening confusion, vomiting, problems with vision or speech, fever, numbness or weakness of the extremities, neck pain or stiffness. Referrals: Ari Lovell MD [Primary Care Provider] - - Critical Care Critical Care Time: No Attestation: On , the high probability of a clinically significant, sudden or life threatening deterioration of the following system(s) required my full and direct attention, intervention and personal management. The time I documented below is in addition to time spent performing reported procedures but includes the following listed in this critical care notation. Medical Decision Making - Medical Records Medical records reviewed: Yes: I reviewed the patient's medical records. - Vicente Inquiry Pt receiving controlled substance: No Vital Signs: 10/21/19 08:03 10/21/19 08:21 10/21/19 08:46 Temperature 98.1 F Temperature Source Oral Pulse Rate Pulse Rate [Right Radial] 67 60 64 Respiratory Rate 16 20 Blood Pressure Blood Pressure [Right Arm] 147/82 H 156/90 H 164/83 H Blood Pressure Mean [Right Arm] 103 112 110 Blood Pressure Source [Right Arm] Automatic Cuff Automatic Cuff Automatic Cuff Blood Pressure Position [Right Arm] Sitting Sitting Sitting 02 Sat by Pulse Oximetry 99 99 99 Oxygen Delivery Method Room Air Room Air Room Air 10/21/19 09:30 10/21/19 10:11 10/21/19 10:23 Temperature 98.3 F Temperature Source Pulse Rate 86 Pulse Rate [Right Radial] 77 59 L Respiratory Rate 20 20 Blood Pressure 132/89 Blood Pressure [Right Arm] 155/80 H 153/84 H Blood Pressure Mean [Right Arm] 105 107 Blood Pressure Source [Right Arm] Automatic Cuff Manual Cuff/ Doppler Blood Pressure Position [Right Arm] Sitting Sitting 02 Sat by Pulse Oximetry 99 95 Oxygen Delivery Method Room Air - Lab Data Lab results reviewed: Yes: I reviewed the patient's lab results. Lab Results 10/21/19 08:15: WBC 6.9, RBC 4.14 L, Hgb 12.6 L, Hct 38.1 L, MCV 92.0, MCH 30.5, MCHC 33.1, RDW 15.1, Plt Count 261, MPV 7.6, Neut % (Auto) 65.7, Lymph % (Auto) 27.5, [place] % (Auto) 4.6, Eos % (Auto) 1.7, Baso % (Auto) 0.6, Neut # (Auto) 4.5, Lymph # (Auto) 1.9, [place] # (Auto) 0.3, Eos # (Auto) 0.1, Baso # (Auto) 0.0 10/21/19 08:15: Sodium 140, Potassium 3.4 L, Chloride 107, Carbon Dioxide 27, Anion Gap 9.4, BUN 15, Creatinine 0.80, Estimated Creat Clear 65, Estimated GFR 94, Est GFR ( Amer) 114, Glucose 103 H, Calcium 9.1, Total Bilirubin 0.7, AST 27, ALT 20, Alkaline Phosphatase 87, Troponin I < 0.01, Total Protein 6.1 L, Albumin 3.6, Globulin 2.5, Albumin/Globulin Ratio 1.4 10/21/19 08:15: PT 12.9 H, INR 1.27 H, APTT 27.3 10/21/19 08:15: NT-Pro-B Natriuret Pep 428 Result diagrams: 10/21/19 08:15 10/21/19 08:15 Orders (Tests/Meds): ED MEDICATIONS Discontinued Medications Generic Name Dose Route Start Last Admin Trade Name Fritzq PRN Reason Stop Dose Admin Metoprolol Tartrate 6.25 mg 10/21/19 08:41 10/21/19 09:12 Lopressor 50mg Tablet PO 10/21/19 08:42 6.25 mg ONCE ONE Administration - Radiology Data #1 Image(s): Chest Image Reviewed: Yes I have reviewed radiologist's interpretation PROCEDURE: XR CHEST PORTABLE CLINICAL HISTORY: soa, edema Altered mental status COMPARISON: PA and lateral chest 01/10/2018 and portable upright chest 11/04/2017 FINDINGS: The cardiomedia
[2019-10-21 08:21] VITALS: BP 156/90; PULSE 60; RESP 20; O2SAT 99
--- NOTE | 2019-10-21 08:30 | CT_ITS ---
PROCEDURE: CT HEAD/BRAIN WO CON CLINICAL INDICATION: headache, confusion COMPARISON: CT HEAD/BRAIN WO CON from 04/20/2019 TECHNIQUE: Axial images obtained. All CT scans at the facility use one or more dose reduction, viz: automated exposure control, ma/kV adjustment per patient size (including targeted exams where dose is matched to indication, i.e. head), or iterative reconstruction technique. FINDINGS: No midline shift, mass effect, intracranial hemorrhage, hydrocephalus, or extra-axial fluid collection is evident. There is mild somewhat irregular hypodensity left cerebellar hemisphere at the site of the previous large cerebellar bleed seen on the study of 04/20/2019. There is mild deformity and enlargement of the 4th ventricle. The sylvian fissures and cortical sulci are mildly prominent. There are mild periventricular hypodensities consistent with chronic ischemic white matter changes. The calvarium has an unremarkable appearance. No mastoid effusion. No sinus air-fluid level. IMPRESSION: Small area of encephalomalacia and or scarring left cerebellar hemisphere from the previous bleed, findings of mild age-appropriate cortical atrophy and mild chronic ischemic white matter changes, no acute intracranial pathology noted Dictated by: Dr. Cleve Medrano MD 10/21/2019 09:[address] Cleve Medrano MD in [place] 10/21/2019 09:12
--- NOTE | 2019-10-21 08:30 | XR_ITS ---
PROCEDURE: XR CHEST PORTABLE CLINICAL HISTORY: soa, edema Altered mental status COMPARISON: PA and lateral chest 01/10/2018 and portable upright chest 11/04/2017 FINDINGS: The cardiomediastinal silhouette and pulmonary vascularity are within normal limits considering a somewhat poor inspiration. The lung juan are clear of infiltrate. There is no pleural fluid. There monitor lines overlying the chest. No acute bony abnormalities. IMPRESSION: No acute findings. Dictated by: Dr. Cleve Medrano MD 10/21/2019 09:[address] Cleve Medrano MD in [place] 10/21/2019 09:06
[2019-10-21 08:37] LABS: Chloride 107 mmol/L (98-107)
[2019-10-21 08:38] LABS: Basophils % 0.6 % (0.1-2.0); Eosinophils # 0.1 K/mm3 (0.0-0.4); Eosinophils % 1.7 % (0.1-12.0); Hematocrit 38.1 % (42.0-52.0); Hemoglobin 12.6 g/dL (14.1-18.0); Lymphocytes # 1.9 K/mm3 (0.7-4.5); Lymphocytes % 27.5 % (10-50); Mean Corpuscular HGB Conc 33.1 g/dL (31.8-35.4); Mean Corpuscular Hemoglobin 30.5 pg (27.0-31.2); Mean Platelet Volume 7.6 fl (7.4-10.4); Monocytes # 0.3 K/mm3 (0.1-1.0); Monocytes % 4.6 % (1.7-9.3); Neutrophils # 4.5 K/mm3 (1.8-7.8); Neutrophils % 65.7 % (37.0-80.0); Platelet Count 261 K/mm3 (142-424); Potassium 3.4 mmoL/L (3.5-5.1); Red Blood Count 4.14 M/mm3 (4.60-6.20); Red Cell Distribution Width 15.1 % (11.5-17.5); Sodium 140 mmol/L (136-145); White Blood Count 6.9 K/mm3 (4.8-10.8)
[2019-10-21 08:40] LABS: Alanine Aminotransferase 20 U/L (12-78); Aspartate Amino Transferase 27 U/L (17-59); Blood Urea Nitrogen 15 mg/dl (9-20); Creatinine Clearance Estimated 65 mL/min (50-200); Estimated Glomerular Filt Rate 94 ml/min (>60); GFR (African American) 114 ML/MIN (>60)
[2019-10-21 08:41] LABS: Albumin Level 3.6 g/dl (3.5-5.0); Albumin/Globulin Ratio 1.4 (1.1-1.8); Alkaline Phosphatase 87 U/L (38-126); Anion Gap 9.4 mEq/L (5-15); Bilirubin,Total 0.7 mg/dl (0.2-1.3); Calcium 9.1 mg/dl (8.4-10.2); Carbon Dioxide 27 mmol/L (22.0-30.0); Globulin 2.5 g/dL (1.3-3.2); Glucose 103 mg/dl (74-100); Total Protein,Serum 6.1 g/dl (6.3-8.2)
[2019-10-21 08:46] VITALS: BP 164/83; PULSE 64; O2SAT 99
--- NOTE | 2019-10-21 08:47 | ECG_ITS ---
APPROVED REPORT Exam: Resting ECG HR:62 bpm ECG Measurements Heart Rate 62 AXES QRSd 80 QRS 48 QT 446 T 47 QTc 452 <Conclusion> Junctional rhythm Abnormal ECG Electronically signed by : Ari Lovell, 10/22/2019 06:14:36
--- NOTE | 2019-10-21 08:47 | PC.NURSE ---
Pt to rad.
[2019-10-21 08:53] LABS: Activated Partial Thrombo Time 27.3 seconds (23.6-34.0); INR 1.27 (0.9-1.1); Prothrombin Time 12.9 seconds (9.4-11.8)
[2019-10-21 08:59] LABS: Troponin I < 0.01 ng/ml (0.00-0.034)
--- NOTE | 2019-10-21 09:03 | PC.NURSE ---
pt returned from rad
--- NOTE | 2019-10-21 09:29 | PC.NURSE ---
paged dr holcomb
[2019-10-21 09:30] VITALS: BP 155/80; PULSE 77; RESP 20; O2SAT 99
[2019-10-21 09:37] LABS: NT Pro Brain Natriuretic Pep. 428 pg/mL (0-450)
[2019-10-21 10:11] VITALS: BP 153/84; PULSE 59; O2SAT 95
[2019-10-21 10:23] VITALS: BP 132/89; PULSE 86; RESP 20; TEMP 36.8; O2SAT 98
== END 2019-10-21 10:25 | disposition home or self-care (01) ==
PROVIDERS: Emergency Provider Emergency Medicine; PCP Internal Medicine Adolescent Medicine
DX: R41.0 Disorientation, unspecified (principal); R60.9 Edema, unspecified; Z86.73 Personal history of transient ischemic attack (TIA), and cerebral infarction without residual deficits; I48.91 Unspecified atrial fibrillation; J44.9 Chronic obstructive pulmonary disease, unspecified; Z95.5 Presence of coronary angioplasty implant and graft; I25.10 Atherosclerotic heart disease of native coronary artery without angina pectoris; I10 Essential (primary) hypertension; E78.5 Hyperlipidemia, unspecified; Z87.891 Personal history of nicotine dependence; Z79.899 Other long term (current) drug therapy
CPT/HCPCS: 70450; 71045; 80053; 83880; 84484; 85025; 85610; 85730; 93005; 99284

== ENCOUNTER → 2019-12-17 15:04 | Outpatient (CLI) | payer MEDICARE, BC, SELFPAY ==
[2019-12-17 15:38] LABS: Chloride 105 mmol/L (98-107)
[2019-12-17 15:39] LABS: Potassium 3.1 mmoL/L (3.5-5.1); Sodium 141 mmol/L (136-145)
[2019-12-17 15:42] LABS: Anion Gap 11.1 mEq/L (5-15); Blood Urea Nitrogen 16 mg/dl (9-20); Calcium 8.2 mg/dl (8.4-10.2); Carbon Dioxide 28 mmol/L (22.0-30.0); Estimated Glomerular Filt Rate 110 ml/min (>60); GFR (African American) 133 ML/MIN (>60); Glucose 85 mg/dl (74-100)
== END ==
PROVIDERS: Visit Provider Psychiatry & Neurology Neurology
DX: R56.9 Unspecified convulsions (principal)
CPT/HCPCS: 80048

== ENCOUNTER → 2019-12-22 09:42 | Outpatient (CLI) | payer MEDICARE, BC, SELFPAY ==
--- NOTE | 2019-12-22 09:52 | MR_ITS ---
PROCEDURE: MR HEAD/BRAIN WO/W CON CLINICAL INDICATION: SEIZURE HX stroke in April and had surgery for repair of hemorragic stroke and has had headache, dizziness, and blurred vision since. HX brain aneurysm but no surgery. Off balance. COMPARISON: CT CT HEAD/BRAIN WO CON from 10/21/2019 TECHNIQUE: Routine multiplanar multi echo sequences are performed without gadolinium enhancement.14ml prohance given. LOT: [id number] EXP: APR 2022 BUNB: 16 CRE: 0.7 GFR: [address] 10-21-19 FINDINGS: No midline shift, mass effect, intracranial hemorrhage, or acute cortical infarction is evident. There is generalized atrophy. Encephalomalacia changes are present in the left cerebellar hemisphere. Scattered periventricular and subcortical T2 white matter hyperintensities are present consistent with ischemic gliotic change from microvascular disease. No enhancing lesions are evident. There is mild. There has been a prior craniotomy in the left occipital area. No mastoid effusion or sinus air-fluid level. Ventriculomegaly which is felt to be related to ex vacuo dilatation IMPRESSION: 1. Atrophy with encephalomalacia changes in the left cerebellar hemisphere. Mild ventriculomegaly which may be related to ex vacuo dilatation from the underlying atrophy. The 4th ventricle is prominent but could be related to the encephalomalacia and postsurgical changes. 2. No acute intracranial findings. Dictated b Laith Yi MD 12/23/2019 11:29 Laith Yi MD in [place] 12/23/2019 11:29
== END ==
PROVIDERS: PCP Internal Medicine Adolescent Medicine; Visit Provider Psychiatry & Neurology Neurology
DX: R56.9 Unspecified convulsions (principal)
CPT/HCPCS: 70553; A9576

== ENCOUNTER 2020-01-15 11:43 | Emergency (ER) | payer MEDICARE, BC, SELFPAY ==
[2020-01-15 11:44] VITALS: BP 124/72; PULSE 63; RESP 15; TEMP 36.8; O2SAT 100; BMI 24.3
--- NOTE | 2020-01-15 11:52 | CT_ITS ---
PROCEDURE: CT HEAD/BRAIN WO CON CLINICAL INDICATION: dizziness, headache, hx of CVA COMPARISON: CT CT HEAD/BRAIN WO CON from 10/21/2019 TECHNIQUE: Axial images obtained. All CT scans at the facility use one or more dose reduction, viz: automated exposure control, ma/kV adjustment per patient size (including targeted exams where dose is matched to indication, i.e. head), or iterative reconstruction technique. FINDINGS: Study is limited and was performed by helical technique. The posterior aspect of the cranium, posterior cerebellum, and posterior occipital lobes are not included on the exam. The technologist remarks that the patient is unable lay the head back with best images possible. Low-density changes are present in the left cerebellar hemisphere consistent with an old infarction. There has been a prior left suboccipital craniotomy. A aries holes noted in the right frontal area incompletely imaged. The vertex of the brain and skull are no also not imaged. IMPRESSION: Limited study as described above with part of the brain not included on the exam. There is an old left cerebellar infarction. No acute finding of the visualized portion of the brain. Dictated by: Laith Yi MD 01/15/2020 12:43 Laith Yi MD in [place] 01/15/2020 12:45
--- NOTE | 2020-01-15 11:52 | PC.NURSE ---
Pt up to bedside commode. Daughter at bedside
--- NOTE | 2020-01-15 12:07 | HMH.EDGENADL ---
ED Disposition Clinical Impression: Dizziness, History of CVA with residual deficit Disposition: Home, Self-Care Condition on Discharge: Fair Additional Instructions: You have been evaluated for dizziness, likely due to previous stroke. Please follow-up with your primary care doctor in 1 to 2 days. Please give a urine sample at home and have it sent for analysis. Return to the emergency department if you have any new or worsening symptoms. Referrals: PCP,No [Primary Care Provider] - Time of Disposition: 14:41 - Critical Care Critical Care Time: No Attestation: On 01/15/20, the high probability of a clinically significant, sudden or life threatening deterioration of the following system(s) required my full and direct attention, intervention and personal management. The time I documented below is in addition to time spent performing reported procedures but includes the following listed in this critical care notation. Medical Decision Making - Medical Records Medical records reviewed: Yes: I reviewed the patient's medical records. - Vicente Inquiry Pt receiving controlled substance: No Vital Signs: 01/15/20 11:44 01/15/20 12:10 01/15/20 12:33 Temperature 98.2 F Temperature Source Oral Pulse Rate Pulse Rate [Right Brachial] 63 64 Respiratory Rate 15 15 Blood Pressure Blood Pressure [Right Arm] 124/72 133/67 129/70 Blood Pressure Mean [Right Arm] 89 89 89 Blood Pressure Source [Right Arm] Automatic Cuff Automatic Cuff Blood Pressure Position [Right Arm] Sitting 02 Sat by Pulse Oximetry 100 100 Oxygen Delivery Method Room Air Room Air Room Air 01/15/20 13:00 01/15/20 14:00 01/15/20 14:38 Temperature 98.6 F Temperature Source Oral Pulse Rate 84 Pulse Rate [Right Brachial] 63 72 Respiratory Rate 15 Blood Pressure 145/85 H Blood Pressure [Right Arm] 146/62 H 136/80 Blood Pressure Mean [Right Arm] 90 98 Blood Pressure Source [Right Arm] Blood Pressure Position [Right Arm] 02 Sat by Pulse Oximetry 97 98 Oxygen Delivery Method Room Air - Lab Data Lab Results 01/15/20 12:35: WBC 6.3, RBC 4.00 L, Hgb 12.9 L, Hct 38.0 L, MCV 94.9 H, MCH 32.2 H, MCHC 33.9, RDW 14.2, Plt Count 268, MPV 7.7, Neut % (Auto) 66.4, Lymph % (Auto) 26.2, [place] % (Auto) 4.7, Eos % (Auto) 1.8, Baso % (Auto) 0.9, Neut # (Auto) 4.2, Lymph # (Auto) 1.7, [place] # (Auto) 0.3, Eos # (Auto) 0.1, Baso # (Auto) 0.1 01/15/20 12:35: Sodium 141, Potassium 3.4 L, Chloride 105, Carbon Dioxide 29, Anion Gap 10.4, BUN 16, Creatinine 0.90, Estimated Creat Clear 65, Estimated GFR 82, Est GFR ( Amer) 99, Glucose 90, Calcium 9.4, Total Bilirubin 0.6, AST 32, ALT 23, Alkaline Phosphatase 80, Total Protein 6.3, Albumin 3.7, Globulin 2.6, Albumin/Globulin Ratio 1.4 Result diagrams: 01/15/20 12:35 01/15/20 12:35 Orders (Tests/Meds): ORDERS Category Date Time Status UA [Urinalysis and Microscopic] Stat Lab 01/15/20 13:53 Ordered Medical Decision Narrative: In summary this is a 74-year-old male with history of hemorrhagic CVA presenting to the emergency department with headache and dizziness. Patient is clinically stable on arrival. Vital signs within normal limits. Concern for metabolic abnormality like glucose derangement or sodium abnormality. Also concern for new intracranial bleed. Plan to obtain CBC, CMP, chest x-ray, EKG, noncontrast head CT, urinalysis. Initial EKG shows sinus bradycardia, no evidence of ischemia or arrhythmia. Initial laboratory results are generally unremarkable. No derangement of sodium, glucose, potassium. Noncontrast head CT shows evidence of old cerebellar infarct, no new or acute changes. Specifically no bleed or hydrocephalus. On reassessment patient says he feels much better. Does not have dizziness or nausea or headache. Updated his daughter about the laboratory and imaging findings. They will continue to monitor his symptoms and follow-up with his PCP. Patient
--- NOTE | 2020-01-15 12:07 | PC.NURSE ---
patient to ct
[2020-01-15 12:10] VITALS: BP 133/67
--- NOTE | 2020-01-15 12:19 | PC.NURSE ---
informed daughter of plan of care, she is agreeable
--- NOTE | 2020-01-15 12:23 | PC.NURSE ---
patient back from ct at this time
[2020-01-15 12:33] VITALS: BP 129/70; PULSE 64; RESP 15; O2SAT 100
--- NOTE | 2020-01-15 12:34 | ECG_ITS ---
APPROVED REPORT Exam: Resting ECG HR:57 bpm ECG Measurements Heart Rate 57 AXES MD 152 P 35 QRSd 78 QRS 68 QT 460 T 58 QTc 447 <Conclusion> Sinus bradycardia Otherwise normal ECG Electronically signed by : Ari Lovell, 01/16/2020 06:33:24
[2020-01-15 12:42] LABS: Basophils # 0.1 K/mm3 (0-0.2); Basophils % 0.9 % (0.1-2.0); Eosinophils # 0.1 K/mm3 (0.0-0.4); Eosinophils % 1.8 % (0.1-12.0); Hemoglobin 12.9 g/dL (14.1-18.0); Lymphocytes # 1.7 K/mm3 (0.7-4.5); Lymphocytes % 26.2 % (10-50); Mean Corpuscular HGB Conc 33.9 g/dL (31.8-35.4); Mean Corpuscular Hemoglobin 32.2 pg (27.0-31.2); Mean Corpuscular Volume 94.9 fl (80-94); Mean Platelet Volume 7.7 fl (7.4-10.4); Monocytes # 0.3 K/mm3 (0.1-1.0); Monocytes % 4.7 % (1.7-9.3); Neutrophils # 4.2 K/mm3 (1.8-7.8); Neutrophils % 66.4 % (37.0-80.0); Platelet Count 268 K/mm3 (142-424); Red Cell Distribution Width 14.2 % (11.5-17.5); White Blood Count 6.3 K/mm3 (4.8-10.8)
[2020-01-15 12:48] LABS: Chloride 105 mmol/L (98-107); Potassium 3.4 mmoL/L (3.5-5.1); Sodium 141 mmol/L (136-145)
[2020-01-15 12:51] LABS: Alanine Aminotransferase 23 U/L (12-78); Albumin Level 3.7 g/dl (3.5-5.0); Albumin/Globulin Ratio 1.4 (1.1-1.8); Alkaline Phosphatase 80 U/L (38-126); Anion Gap 10.4 mEq/L (5-15); Aspartate Amino Transferase 32 U/L (17-59); Bilirubin,Total 0.6 mg/dl (0.2-1.3); Blood Urea Nitrogen 16 mg/dl (9-20); Calcium 9.4 mg/dl (8.4-10.2); Carbon Dioxide 29 mmol/L (22.0-30.0); Creatinine Clearance Estimated 65 mL/min (50-200); Estimated Glomerular Filt Rate 82 ml/min (>60); GFR (African American) 99 ML/MIN (>60); Globulin 2.6 g/dL (1.3-3.2); Glucose 90 mg/dl (74-100); Total Protein,Serum 6.3 g/dl (6.3-8.2)
--- NOTE | 2020-01-15 12:56 | PC.NURSE ---
Notified radiology that CT Report has limited exam. requesting a repeat.
[2020-01-15 13:00] VITALS: BP 146/62; PULSE 63; O2SAT 97
--- NOTE | 2020-01-15 13:59 | PC.NURSE ---
pateint attempting to urinate at this time
[2020-01-15 14:00] VITALS: BP 136/80; PULSE 72; O2SAT 98
[2020-01-15 14:38] VITALS: BP 145/85; PULSE 84; RESP 15; TEMP 37; O2SAT 98
== END 2020-01-15 14:50 | disposition home or self-care (01) ==
PROVIDERS: Emergency Provider Emergency Medicine
DX: R42 Dizziness and giddiness (principal); Z86.73 Personal history of transient ischemic attack (TIA), and cerebral infarction without residual deficits; I10 Essential (primary) hypertension; E78.5 Hyperlipidemia, unspecified; I48.20 Chronic atrial fibrillation, unspecified; I25.10 Atherosclerotic heart disease of native coronary artery without angina pectoris; J44.9 Chronic obstructive pulmonary disease, unspecified; Z90.09 Acquired absence of other part of head and neck; Z87.891 Personal history of nicotine dependence; Z95.5 Presence of coronary angioplasty implant and graft; Z79.899 Other long term (current) drug therapy
CPT/HCPCS: 70450; 80053; 85025; 93005; 99284

== ENCOUNTER → 2020-01-18 14:00 | Outpatient (CLI) | payer MEDICARE, BC, SELFPAY ==
[2020-01-18 14:05] LABS: Microscopic, Urine URINE MICROSCOPIC (MICROSCOPIC)
[2020-01-18 14:15] LABS: Appearance,Urine CLEAR (Clear); Bilirubin,Urine Negative (Negative); Blood, Urine Negative (Negative); Color,Urine YELLOW (Yellow); Glucose,Urine (UA) Negative (Negative); Ketones,Urine TRACE (Negative); Leukocyte Esterase,Urine Negative (Negative); Nitrate,Urine Negative (Negative); Protein,Urine Negative (Negative); Specific Gravity, Urine 1.025 (1.005-1.030); Urobilinogen,Urine 0.2 EU/dl (0.2)
[2020-01-18 14:26] LABS: Amorphous Sediment,Urine 1+ /lpf; Mucus,Urine Trace /lpf; RBC,Urine Occasional #/hpf (0-3); WBC,Urine Occasional #/hpf (0-3)
== END ==
PROVIDERS: PCP Nurse Practitioner Family; Visit Provider Emergency Medicine
DX: R42 Dizziness and giddiness (principal)
CPT/HCPCS: 81001

== ENCOUNTER → 2020-02-20 17:44 | Outpatient (CLI) | payer MEDICARE, BC, SELFPAY ==
[2020-02-20 17:54] LABS: Basophils # 0.1 K/mm3 (0-0.2); Basophils % 0.6 % (0.1-2.0); Eosinophils # 0.1 K/mm3 (0.0-0.4); Eosinophils % 0.8 % (0.1-12.0); Hematocrit 38.6 % (42.0-52.0); Hemoglobin 12.5 g/dL (14.1-18.0); Lymphocytes # 1.8 K/mm3 (0.7-4.5); Mean Corpuscular HGB Conc 32.5 g/dL (31.8-35.4); Mean Corpuscular Hemoglobin 31.2 pg (27.0-31.2); Mean Corpuscular Volume 95.9 fl (80-94); Mean Platelet Volume 7.6 fl (7.4-10.4); Monocytes # 0.6 K/mm3 (0.1-1.0); Monocytes % 6.5 % (1.7-9.3); Neutrophils # 5.9 K/mm3 (1.8-7.8); Platelet Count 259 K/mm3 (142-424); Red Blood Count 4.03 M/mm3 (4.60-6.20); White Blood Count 8.4 K/mm3 (4.8-10.8)
[2020-02-20 18:09] LABS: Chloride 104 mmol/L (98-107); Sodium 142 mmol/L (136-145)
[2020-02-20 18:10] LABS: Potassium 3.4 mmoL/L (3.5-5.1)
[2020-02-20 18:12] LABS: Alanine Aminotransferase 27 U/L (12-78); Albumin Level 3.8 g/dl (3.5-5.0); Albumin/Globulin Ratio 1.7 (1.1-1.8); Alkaline Phosphatase 72 U/L (38-126); Anion Gap 9.4 mEq/L (5-15); Aspartate Amino Transferase 40 U/L (17-59); Bilirubin,Total 0.3 mg/dl (0.2-1.3); Blood Urea Nitrogen 20 mg/dl (9-20); Carbon Dioxide 32 mmol/L (22.0-30.0); Estimated Glomerular Filt Rate 82 ml/min (>60); GFR (African American) 99 ML/MIN (>60); Globulin 2.3 g/dL (1.3-3.2); Total Protein,Serum 6.1 g/dl (6.3-8.2)
[2020-02-20 18:13] LABS: Calcium 8.4 mg/dl (8.4-10.2); Glucose 110 mg/dl (74-100)
== END ==
PROVIDERS: Visit Provider Nurse Practitioner Family
DX: I95.1 Orthostatic hypotension (principal)
CPT/HCPCS: 36415; 80053; 85025

== ENCOUNTER 2020-04-22 14:00 | Outpatient (RCR) | payer MEDICARE, BC, SELFPAY ==
--- NOTE | 2020-01-01 15:36 | HMH.OTOPEV ---
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 Patient reported increased endurance and strength after his stay at [facility] but however lost it all after a few months . Patient reported to stay at [facility] in the Neuro ICU for 1 month post cerebellar stroke, then spending 1 month at [facility] then transitioning to [facility] for 100 days then returning home with in September 2019. Patient reported to have paid caretakers and HH who assist with all ADLs. Family reported HH was not providing services during COVID which resulted in overall functional decline with mobility, strength and endurance. Recent diagnostic imaging (MRI brain) positive for atrophy with encephalomalacia changes in the left cerebellar hemisphere . Standarized Assessments completed this date: Tinetti Balance scoring 6/16 indicating high fall risk and WANG scale of perceived exertion during therapeutic exer rating 17 of very hard and unable to complete UEB with no resistance for 7 mins due to fatigue. 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
== END 2020-05-04 15:30 | disposition home or self-care (01) ==
LOC: OT 14:00
PROVIDERS: PCP Internal Medicine Adolescent Medicine; Visit Provider Internal Medicine Adolescent Medicine
DX: R53.1 Weakness (principal); Z86.73 Personal history of transient ischemic attack (TIA), and cerebral infarction without residual deficits
CPT/HCPCS: 97110; 97164; 97165; 97530

== ENCOUNTER 2020-05-11 14:00 | Outpatient (RCR) | payer MEDICARE, BC, SELFPAY | END 2020-05-11 16:00 | disposition home or self-care (01) | LOC: PT.CARL 14:00 | PROVIDERS: PCP Internal Medicine Adolescent Medicine; Visit Provider Physician Assistant | DX: I62.00 Nontraumatic subdural hemorrhage, unspecified (principal) | CPT/HCPCS: 97110; 97112; 97116; 97163; 97164 ==

== ENCOUNTER 2020-10-14 15:00 | Outpatient (RCR) | payer MEDICARE, BC, SELFPAY | END 2020-10-14 15:05 | disposition home or self-care (01) | LOC: PT 15:00 | PROVIDERS: PCP Nurse Practitioner Family; Visit Provider Physician Assistant | DX: R42 Dizziness and giddiness (principal); R26.89 Other abnormalities of gait and mobility; I69.398 Other sequelae of cerebral infarction; H91.90 Unspecified hearing loss, unspecified ear | CPT/HCPCS: 97116; 97163; 97164; 97530 ==

== ENCOUNTER → 2020-11-02 19:57 | Outpatient (CLI) | payer MEDICARE, BC, SELFPAY ==
[2020-11-02 20:22] LABS: Basophils # 0.1 K/mm3 (0-0.2); Basophils % 0.6 % (0.1-2.0); Eosinophils # 0.1 K/mm3 (0.0-0.4); Eosinophils % 0.6 % (0.1-12.0); Hematocrit 38.7 % (42.0-52.0); Hemoglobin 13.4 g/dL (14.1-18.0); Lymphocytes # 1.9 K/mm3 (0.7-4.5); Lymphocytes % 20.9 % (10-50); Mean Corpuscular HGB Conc 34.6 g/dL (31.8-35.4); Mean Corpuscular Hemoglobin 31.9 pg (27.0-31.2); Mean Corpuscular Volume 92.3 fl (80-94); Mean Platelet Volume 8.7 fl (7.4-10.4); Monocytes # 0.5 K/mm3 (0.1-1.0); Monocytes % 5.8 % (1.7-9.3); Neutrophils # 6.6 K/mm3 (1.8-7.8); Neutrophils % 72.1 % (37.0-80.0); Platelet Count 278 K/mm3 (142-424); Red Cell Distribution Width 14.4 % (11.5-17.5); White Blood Count 9.2 K/mm3 (4.8-10.8)
[2020-11-02 21:02] LABS: Alanine Aminotransferase 15 U/L (12-78); Albumin Level 4.1 g/dl (3.5-5.0); Albumin/Globulin Ratio 1.8 (1.1-1.8); Alkaline Phosphatase 101 U/L (38-126); Anion Gap 12.6 mEq/L (5-15); Aspartate Amino Transferase 26 U/L (17-59); Bilirubin,Total 0.6 mg/dl (0.2-1.3); Blood Urea Nitrogen 17 mg/dl (9-20); Calcium 8.5 mg/dl (8.4-10.2); Carbon Dioxide 29 mmol/L (22.0-30.0); Chloride 104 mmol/L (98-107); Chol/HDL Ratio 2.4 (1-3.5); Cholesterol 99 mg/dl (140-200); Estimated Glomerular Filt Rate 94 ml/min (>60); GFR (African American) 113 ML/MIN (>60); Globulin 2.3 g/dL (1.3-3.2); Glucose 65 mg/dl (74-100); HDL Cholesterol 41 mg/dl (40-60); Potassium 3.6 mmoL/L (3.5-5.1); Sodium 142 mmol/L (136-145); Total Protein,Serum 6.4 g/dl (6.3-8.2); Triglycerides 60 mg/dl (30-150); VLDL Cholesterol 12 mg/dL (0-40)
[2020-11-02 21:13] LABS: Direct LDL Cholesterol 38.03 mg/dL (100-129)
[2020-11-02 22:19] LABS: Triiodothryronine (T3) Uptake 32 % (23.5-40.5)
[2020-11-02 22:20] LABS: Free Thyroxine Index 2.8 ug/dL (5.93-13.13); T4 (Thyroxine) 8.8 ug/dl (5.53-11.0)
[2020-11-02 22:33] LABS: Thyroid Stimulating Hormone 1.43 uIU/mL (0.465-4.68)
== END ==
PROVIDERS: Visit Provider Internal Medicine Adolescent Medicine
DX: I25.10 Atherosclerotic heart disease of native coronary artery without angina pectoris (principal); I69.398 Other sequelae of cerebral infarction; R56.9 Unspecified convulsions; Z79.899 Other long term (current) drug therapy; I11.9 Hypertensive heart disease without heart failure; Z87.891 Personal history of nicotine dependence
CPT/HCPCS: 80053; 80061; 84436; 84443; 84479; 85025

== ENCOUNTER → 2021-09-05 07:44 | Outpatient (CLI) | payer MEDICARE, BC, SELFPAY ==
--- NOTE | 2021-09-05 08:06 | CT_ITS ---
FINAL REPORT CLINICAL HISTORY: cerebral aneurysm non ruptured FINDINGS: CTA HEAD Thin section axial CT with contrast with multiplanar reconstruction There appears to be a small, localized aneurysmal outpouching at the inferior margin of the distal right internal carotid artery measuring 3 mm in diameter. This is best seen on images 59 and 60 of series 604. There is moderate atrophy and proportional ventriculomegaly. There are findings of chronic microvascular ischemia. There is more localized decreased attenuation in the deep white matter right frontal lobe which may be due to old subcortical infarct. 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 Reviewed, Interpreted and Dictated by Kashmir Hernández MD Transcribed by Tahmina Tripp Authenticated by Kashmir Hernández MD on 09/05/2021 12:16:[address] [facility]
[2021-09-05 08:14] LABS: Blood Urea Nitrogen 16 mg/dl (9-20); Estimated Glomerular Filt Rate 93 ml/min (>60); GFR (African American) 113 ML/MIN (>60)
--- NOTE | 2021-09-05 09:10 | MR_ITS ---
FINAL REPORT CLINICAL HISTORY: GAIT DISTURBANCE, POST STROKE. DIZZINESS. HEADACHE ON FRONTAL LEFT SIDE OF HEAD. BLURRED VISION. HX STROKE IN APR 2019. FINDINGS: Multi planar MR imaging was obtained through the brain without contrast. The midline structures appear intact. There is abnormal decreased attenuation in the left cerebellar hemisphere consistent with encephalomalacia likely due to prior infarct. Decreased attenuation is also seen in the deep white matter of the posterior right frontal lobe due to old subcortical infarct. There is moderate atrophy and proportional ventriculomegaly. There is no evidence of Chiari malformation. On T2 and flair axial images the brain parenchyma is homogeneous. On diffusion-weighted images there is no evidence of restricted diffusion. The visualized paranasal sinuses demonstrate normal signal voids. The seventh and eighth nerve root complexes are intact. IMPRESSION: Acute intracranial abnormality. Findings of atrophy and prior infarcts. Reviewed, Interpreted and Dictated by Kashmir Hernández MD Transcribed by Tahmina Tripp Authenticated by Kashmir Hernández MD on 09/05/2021 12:16:15 PM [facility]
== END ==
PROVIDERS: PCP Nurse Practitioner Family; Visit Provider Physician Assistant
DX: I67.1 Cerebral aneurysm, nonruptured (principal)
CPT/HCPCS: 36415; 70496; 70551; 82565; 84520; Q9967

== ENCOUNTER → 2021-10-14 12:12 | Outpatient (CLI) | payer MEDICARE, BC, SELFPAY | PROVIDERS: PCP Internal Medicine Adolescent Medicine; Referring Provider Ophthalmology; Visit Provider Ophthalmology | DX: Z01.812 Encounter for preprocedural laboratory examination (principal); H25.813 Combined forms of age-related cataract, bilateral; Z20.822 Contact with and (suspected) exposure to COVID-19 | CPT/HCPCS: C9803; U0003; U0005 ==

== ENCOUNTER → 2022-01-12 17:40 | Outpatient (CLI) | payer MEDICARE, BC, SELFPAY ==
[2022-01-12 18:50] LABS: Basophils % 0.5 % (0.1-2.0); Eosinophils # 0.1 K/mm3 (0.0-0.4); Eosinophils % 0.8 % (0.1-12.0); Hematocrit 41.9 % (42.0-52.0); Lymphocytes # 1.4 K/mm3 (0.7-4.5); Lymphocytes % 16.3 % (10-50); Mean Corpuscular HGB Conc 31.1 g/dL (31.8-35.4); Mean Corpuscular Hemoglobin 31.3 pg (27.0-31.2); Mean Corpuscular Volume 100.7 fl (80-94); Mean Platelet Volume 8.9 fl (7.4-10.4); Monocytes # 0.5 K/mm3 (0.1-1.0); Monocytes % 5.1 % (1.7-9.3); Neutrophils # 6.8 K/mm3 (1.8-7.8); Neutrophils % 77.3 % (37.0-80.0); Platelet Count 296 K/mm3 (142-424); Red Blood Count 4.16 M/mm3 (4.60-6.20); Red Cell Distribution Width 14.1 % (11.5-17.5); White Blood Count 8.8 K/mm3 (4.8-10.8)
[2022-01-12 19:49] LABS: Alanine Aminotransferase 22 U/L (12-78); Albumin Level 3.6 g/dl (3.5-5.0); Albumin/Globulin Ratio 1.6 (1.1-1.8); Alkaline Phosphatase 126 U/L (38-126); Anion Gap 11.4 mEq/L (5-15); Aspartate Amino Transferase 30 U/L (17-59); Bilirubin,Total 0.3 mg/dl (0.2-1.3); Blood Urea Nitrogen 14 mg/dl (9-20); Calcium 7.5 mg/dl (8.4-10.2); Carbon Dioxide 28 mmol/L (22.0-30.0); Chloride 105 mmol/L (98-107); Chol/HDL Ratio 2.4 (1-3.5); Cholesterol 103 mg/dl (140-200); Estimated Glomerular Filt Rate 93 ml/min (>60); GFR (African American) 113 ML/MIN (>60); Globulin 2.3 g/dL (1.3-3.2); Glucose 102 mg/dl (74-100); HDL Cholesterol 43 mg/dl (40-60); Potassium 3.4 mmoL/L (3.5-5.1); Sodium 141 mmol/L (136-145); Total Protein,Serum 5.9 g/dl (6.3-8.2); Triglycerides 66 mg/dl (30-150); VLDL Cholesterol 13 mg/dL (0-40)
[2022-01-12 20:20] LABS: Thyroid Stimulating Hormone 1.24 uIU/mL (0.465-4.68)
[2022-01-14 07:59] LABS: Direct LDL Cholesterol 44 mg/dL (100-129)
== END ==
PROVIDERS: PCP Internal Medicine Adolescent Medicine; Visit Provider Internal Medicine Adolescent Medicine
DX: E78.2 Mixed hyperlipidemia (principal); I25.10 Atherosclerotic heart disease of native coronary artery without angina pectoris
CPT/HCPCS: 80053; 80061; 84443; 85025

== ENCOUNTER → 2022-03-17 10:10 | Outpatient (CLI) | payer MEDICARE, BC, SELFPAY ==
--- NOTE | 2022-03-17 10:10 | US_ITS ---
FINAL REPORT CLINICAL HISTORY: abdominal pain FINDINGS: Sonographic images of the abdomen were obtained. There is a 2.4 cm cyst in the left hepatic lobe. The portal vein measures 13 mm, upper limits of normal in size. The gallbladder has an unremarkable appearance without evidence of gallstones. There is no evidence of biliary ductal dilatation. The common hepatic duct measures 3 mm, which is within normal limits. Limited images of the pancreas are unremarkable. The spleen size is normal. The right kidney measures 12.6 cm in length. The left kidney measures 10.8 cm in length. There is normal renal echogenicity. There is no evidence of hydronephrosis. The aorta has an unremarkable appearance. Limited images of the inferior vena cava are unremarkable. IMPRESSION: Left hepatic cyst. Portal vein measures in the upper limits of normal in size. Reviewed, Interpreted and Dictated by Troy Curtis III, MD Transcribed by Yancy Mancera Authenticated and [facility]
--- NOTE | 2022-03-17 11:48 | XR_ITS ---
FINAL REPORT CLINICAL HISTORY: abdominal pain COMPARISON: 10/21/2019 FINDINGS: Two views of the chest were obtained. The heart size and pulmonary vascularity are within normal limits. The mediastinum is normal. No acute pulmonary abnormality is identified. There is no pneumothorax. The bony thorax is intact. IMPRESSION: No active cardiopulmonary disease. Reviewed, Interpreted and Dictated by Troy Curtis III, MD Transcribed by Yancy Mancera Authenticated and [facility]
[2022-03-17 12:26] LABS: Basophils # 0.1 K/mm3 (0-0.2); Basophils % 0.8 % (0.1-2.0); Eosinophils # 0.1 K/mm3 (0.0-0.4); Eosinophils % 0.8 % (0.1-12.0); Hematocrit 42.3 % (42.0-52.0); Hemoglobin 13.5 g/dL (14.1-18.0); Lymphocytes # 1.7 K/mm3 (0.7-4.5); Lymphocytes % 21.5 % (10-50); Mean Corpuscular Hemoglobin 31.7 pg (27.0-31.2); Mean Corpuscular Volume 99.2 fl (80-94); Mean Platelet Volume 8.8 fl (7.4-10.4); Monocytes # 0.4 K/mm3 (0.1-1.0); Monocytes % 4.6 % (1.7-9.3); Neutrophils # 5.6 K/mm3 (1.8-7.8); Neutrophils % 72.2 % (37.0-80.0); Platelet Count 274 K/mm3 (142-424); Red Blood Count 4.27 M/mm3 (4.60-6.20); Red Cell Distribution Width 13.7 % (11.5-17.5); White Blood Count 7.7 K/mm3 (4.8-10.8)
[2022-03-17 13:02] LABS: Alanine Aminotransferase 23 U/L (12-78); Albumin Level 3.9 g/dl (3.5-5.0); Albumin/Globulin Ratio 1.8 (1.1-1.8); Alkaline Phosphatase 118 U/L (38-126); Anion Gap 14.7 mEq/L (5-15); Aspartate Amino Transferase 34 U/L (17-59); Bilirubin,Total 0.7 mg/dl (0.2-1.3); Blood Urea Nitrogen 13 mg/dl (9-20); Calcium 7.3 mg/dl (8.4-10.2); Carbon Dioxide 31 mmol/L (22.0-30.0); Chloride 102 mmol/L (98-107); Estimated Glomerular Filt Rate 109 ml/min (>60); GFR (African American) 132 ML/MIN (>60); Globulin 2.2 g/dL (1.3-3.2); Glucose 89 mg/dl (74-100); Potassium 3.7 mmoL/L (3.5-5.1); Sodium 144 mmol/L (136-145); Total Protein,Serum 6.1 g/dl (6.3-8.2)
== END ==
PROVIDERS: PCP Family Medicine; Visit Provider Family Medicine
DX: R10.9 Unspecified abdominal pain (principal); R07.2 Precordial pain
CPT/HCPCS: 36415; 71046; 76700; 80053; 85025

== ENCOUNTER 2022-07-03 16:05 | Observation (INO) | payer MEDICARE, BC, SELFPAY ==
[2022-07-03] VITALS (10 sets, daily range): BP systolic 106–159; BP diastolic 56–87; PULSE 86–110; RESP 16–35; TEMP 36.6–39.6; O2SAT 91–96; BMI 21.1; BMI 20.6
--- NOTE | 2022-07-03 16:40 | XR_ITS ---
PROCEDURE INFORMATION: Exam: XR Chest Exam date and time: 07/03/2022 5:04 PM Age: 76 years old Clinical indication: Cough; Additional info: Cough, fever TECHNIQUE: Imaging protocol: Radiologic exam of the chest. Views: 1 view. COMPARISON: CR XR CHEST 2V 03/17/2022 11:49 AM FINDINGS: Lungs: Lung volumes are mildly diminished. There is a new patchy opacity in the left lower lobe. The lungs appear otherwise clear. Pleural spaces: No pleural effusions or appreciable adenopathy. Negative for pneumothorax. Heart/Mediastinum: Cardiac silhouette and pulmonary vasculature are within range of normal. The aorta is mildly unfolded and tortuous, as before. The Bones/joints: There is no evidence of acute fracture. IMPRESSION: New patchy opacity in the left lower lobe. In the setting of cough and fever, findings are suggestive of pneumonia. Correlate clinically and recommend short-term follow-up to ensure resolution.
--- NOTE | 2022-07-03 16:49 | HMH.EDGENADL ---
Discharge Plan Disposition Patient Disposition: Admitted As Inpatient Clinical Impressions Clinical Impression: CAP (community acquired pneumonia), Sepsis Discharge ED Provider: Rubin Wong Adult HPI General Chief complaint: Weakness Stated complaint: weakness Time Seen by Provider: 07/03/22 16:49 Mode of Arrival: EMS Source of Information: Patient Limitations: Physical Limitations Description of Symptoms (Recalled from ER Triage Doc. by RN): pt to the ED via EMS with generalized weakness, cough and fever x 4 days. pt denies any chets pain or SOB and wears 2L NC O2 at all times. History of Present Illness HPI narrative: Patient is a 76-year-old very poor historian brought him with fever. On my assessment he is unable to provide much history and it is extremely limited secondary to his baseline clinical status. From report apparently he has a history of stroke in the remote past and that he is at his mental baseline. He presents today with fever and generalized weakness triage note says that he has had a cough and fever however he denies a cough to me. Denies any urinary symptoms. Denies any abdominal pain or any skin breakdown or any other symptoms. Remainder of history is limited. Related Data Home Medications Medication Instructions Recorded Confirmed terazosin 5 mg capsule 5 mg PO HS prostate 06/10/19 07/03/22 lacosamide 100 mg tablet (Vimpat) 100 mg PO BID Mood 01/12/22 07/03/22 atorvastatin 80 mg tablet 80 mg PO HS Cholesterol 07/03/22 07/03/22 metoprolol tartrate 25 mg tablet 25 mg PO BID Heart 07/03/22 07/03/22 rivaroxaban 20 mg tablet (Xarelto) 20 mg PO DAILY Blood thinner 07/03/22 07/03/22 Previous Rx's Medication Instructions Recorded omeprazole 20 mg tablet,delayed 20 mg PO BID GERD 90 days #180 tabs 04/25/22 release Allergies Allergy/AdvReac Type Severity Reaction Status Date / Time No Known Allergies Allergy Verified 04/11/22 14:31 [facility] Disclaimer: The information contained in this section may have been updated after the patient was seen, as this information can be updated by other users. Medical History Arthritis Atrial fibrillation, new onset BPH (benign prostatic hyperplasia) Cardiac arrhythmia Cerebellar hemorrhage, acute COPD exacerbation Coronary artery disease Depression Encounter for feeding tube placement Gout History of CVA with residual deficit HLD (hyperlipidemia) HTN (hypertension) Hyperplastic colon polyp Hypokalemia Insomnia Intermittent confusion Neurogenic bowel Numbness in both hands Peripheral edema Shingles Tobacco abuse UGIB (upper gastrointestinal bleed) Ventricular dysrhythmia Surgical History S/P ventricular shunt placement Stented coronary artery Social History Smoking Status: Current every day smoker tobacco type: cigarettes packs per day: 1 second hand exposure: Yes alcohol intake: never substance use type: denies use current occupational status: disabled Travel in the last 8 weeks: None household members: spouse housing: house caffeine: Yes ROS Obtained: Yes All systems reviewed & no additional complaints except as documented Physical Exam General General appearance: alert Chest Chest inspection: Present normal inspection, symmetric chest wall rise and tenderness Respiratory Respiratory exam: Present normal lung sounds bilaterally; Absent respiratory distress, wheezes or stridor Cardiovascular Cardiovascular exam: Present tachycardia; Absent irregular rhythm, normal heart sounds, systolic murmur or diastolic murmur Abdominal Exam Abdominal exam: Present soft; Absent distention, tenderness, guarding, rebound or rigidity Neurological Exam Neurological exam: Present alert Medical Decision Making Vicente Inquiry Pt receiving controlled substance:
[2022-07-03 16:52] LABS: Basophils % 0.1 % (0.1-2.0); Eosinophils # 0.1 K/mm3 (0.0-0.4); Eosinophils % 0.3 % (0.1-12.0); Hematocrit 44.5 % (42.0-52.0); Hemoglobin 14.4 g/dL (14.1-18.0); Lymphocytes # 0.4 K/mm3 (0.7-4.5); Lymphocytes % 2.1 % (10-50); Mean Corpuscular HGB Conc 32.3 g/dL (31.8-35.4); Mean Corpuscular Hemoglobin 31.2 pg (27.0-31.2); Mean Corpuscular Volume 96.5 fl (80-94); Monocytes # 0.6 K/mm3 (0.1-1.0); Monocytes % 3.5 % (1.7-9.3); Neutrophils # 15.7 K/mm3 (1.8-7.8); Neutrophils % 93.8 % (37.0-80.0); Platelet Count 348 K/mm3 (142-424); Red Blood Count 4.61 M/mm3 (4.60-6.20); Red Cell Distribution Width 13.4 % (11.5-17.5); White Blood Count 16.7 K/mm3 (4.8-10.8)
[2022-07-03 16:53] LABS: Potassium 3.3 mmoL/L (3.5-5.1); Sodium 144 mmol/L (136-145)
[2022-07-03 16:54] LABS: Chloride 105 mmol/L (98-107)
[2022-07-03 16:55] LABS: Coronavirus 19, PCR Not Detected (NotDetected); Influenza A, PCR Not Detected (NotDetected); Influenza B, PCR Not Detected (NotDetected)
[2022-07-03 16:55] LABS: Blood Urea Nitrogen 24 mg/dl (9-20); Creatinine Clearance Estimated 51 mL/min (50-200); Estimated Glomerular Filt Rate 65 ml/min (>60); GFR (African American) 78 ML/MIN (>60); Lactic Acid 2.2 mmol/L (0.7-2.1); MANUAL DIFFERENTIAL MANUAL DIFFERENTIAL (MANUAL DIFF)
[2022-07-03 16:56] LABS: Alanine Aminotransferase 27 U/L (12-78); Albumin Level 3.8 g/dl (3.5-5.0); Albumin/Globulin Ratio 1.4 (1.1-1.8); Alkaline Phosphatase 89 U/L (38-126); Anion Gap 12.3 mEq/L (5-15); Aspartate Amino Transferase 36 U/L (17-59); Bilirubin,Total 0.7 mg/dl (0.2-1.3); Calcium 6.9 mg/dl (8.4-10.2); Carbon Dioxide 30 mmol/L (22.0-30.0); Globulin 2.8 g/dL (1.3-3.2); Glucose 145 mg/dl (74-100); Total Protein,Serum 6.6 g/dl (6.3-8.2)
[2022-07-03 17:09] LABS: Troponin I < 0.01 ng/ml (0.00-0.034)
[2022-07-03 17:10] LABS: Lymphocytes % 2 % (10-50); Monocytes % 5 % (2-9); Neutrophils % 93 % (42-76); Total Cells Counted 100
[2022-07-03 17:11] LABS: Acanthocytes 1+; Platelet Estimate Normal
--- NOTE | 2022-07-03 18:18 | ECG_ITS ---
APPROVED REPORT Exam: Resting ECG HR:95 bpm ECG Measurements Heart Rate 95 AXES DC 156 P -29 QRSd 112 QRS 58 QT 382 T -35 QTc 435 Conclusion SINUS RHYTHM Normal ECG Electronically signed by : Ari Lovell MD 07/04/2022 07:00:37
--- NOTE | 2022-07-03 18:22 | PC.NURSE ---
rounded on pt, no needs at this time, family at bs
--- NOTE | 2022-07-03 18:30 | PC.NURSE ---
house contacted for bed assignment
--- NOTE | 2022-07-03 19:41 | PC.NURSE ---
report called to angie riddle
--- NOTE | 2022-07-03 19:51 | PC.NURSE ---
Pt arrived to floor via stretcher @ [id number]
--- NOTE | 2022-07-03 20:12 | EXP.HP ---
History of Present Illness *Admission Date: 07/03/22 *Reason for visit:: Weakness, cough, fevers, SOA *History of present illness: Mr. Peterson is a 76-year-old male with a past medical history of cerebellar CVA, COPD, CAD, Chronic Atrial fibrillation on chronic anticoagulation and seizure disoder. He presented to [facility] through the ER due to weakness, cough and fevers x 4 days duration. In the ER the patient had a Cxray that showed new patchy opacities in the left lower lung lobe. Covid and Flu testing were negative. WBC on CBC was elevated at 16.7. Temperature was elevated at 103.2, HR was elevated at 110 and RR was elevated at 35. In the ER the patient had blood cultures x 2 drawn and was given empiric antibiotics of Rocephin and Azithromycin. The patient will be admitted with initial impression: Sepsis and Community Acquired Pneumonia. [facility] Disclaimer: The information contained in this section may have been updated after the patient was seen, as this information can be updated by other users. Medical History Arthritis Atrial fibrillation, new onset BPH (benign prostatic hyperplasia) Cardiac arrhythmia Cerebellar hemorrhage, acute COPD exacerbation Coronary artery disease Depression Encounter for feeding tube placement Gout History of CVA with residual deficit History of gastroesophageal reflux (GERD) History of stroke HLD (hyperlipidemia) HTN (hypertension) Hyperplastic colon polyp Hypokalemia Insomnia Intermittent confusion Neurogenic bowel Numbness in both hands Peripheral edema Shingles Tobacco abuse UGIB (upper gastrointestinal bleed) Ventricular dysrhythmia Surgical History S/P ventricular shunt placement Stented coronary artery Family History (Updated 07/03/22 @ 20:26 by Mary Kate Funez RN) Colon cancer Social History (Updated 07/03/22 @ 20:26 by Mary Kate Funez RN) Smoking Status: Current every day smoker tobacco type: cigarettes packs per day: 1 second hand exposure: Yes alcohol intake: never substance use type: denies use current occupational status: disabled Travel in the last 8 weeks: None household members: spouse housing: house caffeine: Yes Review of Systems Review of Systems Review of systems:: pertinent systems reviewed and negative unless documented below Constitutional Constitutional: Reports body ache(s), Reports chills, Reports fatigue, Reports fever(s), Reports lethargy and Reports malaise Eyes Eyes: Reports system reviewed and no additional complaints, except as documented ENT Ears, Nose, Mouth, and Throat: Reports system reviewed and no additional complaints, except as documented *Cardiovascular Cardiovascular: Reports system reviewed and no additional complaints, except as documented and Reports dyspnea *Respiratory Respiratory: Reports chest congestion, Reports cough and Reports dyspnea *Gastrointestinal Gastrointestinal: Reports system reviewed and no additional complaints, except as documented *Genitourinary Genitourinary: Reports system reviewed and no additional complaints, except as documented *Musculoskeletal Musculoskeletal: Reports system reviewed and no additional complaints, except as documented Integumentary/Breasts Skin/Breast: Reports system reviewed and no additional complaints, except as documented *Neurologic Neurologic: Reports system reviewed and no additional complaints, except as documented Psychiatric Psychiatric: Reports system reviewed and no additional complaints, except as documented Endocrine Endocrine: Reports fatigue Hematologic/Lymphatic Hematologic/Lymphatic: Reports system reviewed and no additional complaints, except as documented Allergic/Immunologic Allergic/Immunologic: Reports system reviewed and no additional complaints, except as documented Meds Home Medications and Allergies Home Medicati
[2022-07-03 20:30] LABS: Reflex Lactic Add Lactic Reflex
[2022-07-03 21:04] LABS: Lactic Acid Follow Up (RFLX 1) 0.9 mmol/L (0.7-2.1)
--- NOTE | 2022-07-03 23:20 | PC.NURSE ---
WAS INFORMED THAT PT LOST CONSCIOUSNESS WHILE STANDING UP WITH WALKER AND 2 TECHS WHILE TRYING TO USE THE URINAL. TECH'S LOWERED PT TO HIS KNEES ON THE FLOOR. VITAL SIGNS OBTAINED BP 115/68 HR:99 O2:91% ON ROOM AIR. BRANDY RIVAS NOTIFIED AND IS AT PT BEDSIDE AT THIS TIME. SUPERVISOR VENEER TO ORDER HEAD CT. INITIATING FALL PRECAUTIONS. BED ALARM IN PLACE. PT IS NOW ON Q30 MIN CHECKS.
--- NOTE | 2022-07-03 23:25 | CT_ITS ---
PROCEDURE INFORMATION: Exam: CT Head Without Contrast Exam date and time: 07/03/2022 11:55 PM Age: 76 years old Clinical indication: Syncope and collapse TECHNIQUE: Imaging protocol: Computed tomography of the head without contrast. Radiation optimization: All CT scans at this facility use at least one of these dose optimization techniques: automated exposure control; mA and/or kV adjustment per patient size (includes targeted exams where dose is matched to clinical indication); or iterative reconstruction. Other protocol: This patient has received [address] and 0 known cardiac nuclear medicine studies in the 12 months prior to the current study. COMPARISON: MR HEAD/BRAIN WO CON 09/05/2021 10:00 AM FINDINGS: Brain: Old left occipital lobe encephalomalacia. Ex vacuo enlargement of the 4th ventricle.No evidence for intracranial hemorrhage, mass lesions or acute stroke. Intracranial vascular calcifications. Mild small vessel ischemic change in the periventricular white matter. Cerebral ventricles: See Brain finding. Paranasal sinuses: Moderate mucosal thickening right maxillary sinus. Mild mucosal thickening left maxillary sinus. Mild mucosal thickening of the ethmoid and frontal air cells. Mastoid air cells: Visualized mastoid air cells are well aerated. Bones/joints: Left suboccipital craniotomy. Soft tissues: Unremarkable. Other findings: Mild generalized atrophy. IMPRESSION: 1. Left suboccipital craniotomy. 2. Old left occipital lobe encephalomalacia. 3. Ex vacuo enlargement of the 4th ventricle. 4. No evidence for intracranial hemorrhage, mass lesions or acute stroke. 5. Intracranial vascular calcifications. 6. Mild generalized atrophy. 7. Mild small vessel ischemic change in the periventricular white matter. 8. Moderate mucosal thickening right maxillary sinus. Mild mucosal thickening left maxillary sinus. Mild mucosal thickening of the ethmoid and frontal air cells.
[2022-07-04 04:00] VITALS: BP 108/54; PULSE 73; RESP 18; TEMP 36.6; O2SAT 95; BMI 20.7
[2022-07-04 05:25] VITALS: PULSE 72; PULSE 73
--- NOTE | 2022-07-04 05:51 | PC.NURSE ---
PT HAS RESTED WELL THIS SHIFT. NO FURTHER INCIDENCES OF PT FEELING LIGHTHEADED OR EPISODES OF SYNCOPE. VSS. PT DID DESAT TO 88% ON ROOM AIR. PT PLACED ON 2L NASAL CANNULA AND HAS TOLERATED IT WELL. HE IS NOW ON 1L AND IS TOLERATING IT WELL. WILL TRY TO WEAN TO ROOM AIR.
[2022-07-04 07:31] LABS: Basophils % 0.2 % (0.1-2.0); Eosinophils % 0.1 % (0.1-12.0); Red Blood Count 3.86 M/mm3 (4.60-6.20)
[2022-07-04 07:42] VITALS: BP 125/61; PULSE 90; RESP 18; TEMP 36.6; O2SAT 95
[2022-07-04 07:46] LABS: Chloride 109 mmol/L (98-107); Sodium 144 mmol/L (136-145)
[2022-07-04 07:49] LABS: Alanine Aminotransferase 30 U/L (12-78); Albumin Level 2.9 g/dl (3.5-5.0); Alkaline Phosphatase 78 U/L (38-126); Anion Gap 10.7 mEq/L (5-15); Aspartate Amino Transferase 36 U/L (17-59); Bilirubin,Total 0.6 mg/dl (0.2-1.3); Blood Urea Nitrogen 22 mg/dl (9-20); Carbon Dioxide 27 mmol/L (22.0-30.0); Creatinine Clearance Estimated 55 mL/min (50-200); Estimated Glomerular Filt Rate 72 ml/min (>60); GFR (African American) 87 ML/MIN (>60)
[2022-07-04 07:50] LABS: Albumin/Globulin Ratio 1.2 (1.1-1.8); Globulin 2.4 g/dL (1.3-3.2); Glucose 115 mg/dl (74-100); Total Protein,Serum 5.3 g/dl (6.3-8.2)
--- NOTE | 2022-07-04 08:05 | PC.NURSE ---
Critical K+ 2.7 Critical Mg 0.[address] Lamb
[2022-07-04 08:06] LABS: Magnesium 0.6 mg/dl (1.6-2.3); Potassium 2.7 mmoL/L (3.5-5.1)
[2022-07-04 08:09] LABS: Hematocrit 37.8 % (42.0-52.0); Lymphocytes # 1.5 K/mm3 (0.7-4.5); Lymphocytes % 10.7 % (10-50); Mean Corpuscular HGB Conc 31.9 g/dL (31.8-35.4); Mean Corpuscular Hemoglobin 31.3 pg (27.0-31.2); Mean Corpuscular Volume 98.1 fl (80-94); Monocytes # 0.5 K/mm3 (0.1-1.0); Monocytes % 3.5 % (1.7-9.3); Neutrophils # 11.9 K/mm3 (1.8-7.8); Neutrophils % 85.6 % (37.0-80.0); Platelet Count 255 K/mm3 (142-424); Red Cell Distribution Width 13.3 % (11.5-17.5); White Blood Count 13.9 K/mm3 (4.8-10.8)
[2022-07-04 08:11] LABS: Hemoglobin 12.1 g/dL (14.1-18.0)
[2022-07-04 08:13] LABS: MANUAL DIFFERENTIAL MANUAL DIFFERENTIAL (MANUAL DIFF)
--- NOTE | 2022-07-04 08:36 | PC.NURSE ---
Dr. Lamb and daughter at bedside.
[2022-07-04 09:00] LABS: Lymphocytes % 16 % (10-50); Monocytes % 4 % (2-9); Neutrophils % 80 % (42-76); Platelet Estimate Normal; RBC Morphology Normal; Total Cells Counted 100
--- NOTE | 2022-07-04 09:05 | HMH.PHAINT1 ---
Pharmacy Intervention Comments: Medication reconciliation completed using external fill history and discussion with PCP office
--- NOTE | 2022-07-04 10:44 | HMH.PTEV ---
Physical Therapy Evaluation Rehab PT IP Evaluation Start: 07/04/22 09:29 Freq: ONCE Status: Active Protocol: Document 07/04/22 09:30 PHORNE (Rec: 07/04/22 10:44 PHORNE [id number]) Subjective/History History History 76 yowm adm to [facility] with PNA, hx of dementia and chronic vertigo. He reports he lives with his at baseline, but they are currently staying with their daughter as his is in poor health as well currently. He uses a RW for ambulation at baseline. Subjective Subjective He reports feeling tired this am and baseline dizziness with mobility. Rehab PT IP Eval Objective Appearance Patient Behavior Appropriate Patient Orientation Person,Place,Time Difficulty following instructions none Speech Pattern Clear Ambulation Patient Able to Ambulate Yes Ambulation Observation IP General Gait Pattern Observation Wide Based Gait Ambulation Distance (feet) 25 Ambulation Assistive Device Rolling Walker Ambulation Ability Contact Guard/Hand Hold Balance Ability to Arise Able, uses arms to help Sitting Balance Steady, safe Standing Balance Steady, wide stance Dynamic Sitting Balance Ability Good Dynamic Standing Balance Ability Fair Transfers Bed Transfer Ability Supervision/Stand by Chair Transfer Ability Contact Guard/Hand Hold Sit to Stand Bed Transfer Ability Contact Guard/Hand Hold Sit to Stand Chair Transfer Ability Contact Guard/Hand Hold Rehab PT IP prob,goals,plan Problems Date of Evaluation: 07/04/22 PT IP Problems Bed Mobility,Transfers,Gait Rehab Potential Rehab Potential Good Plan PT Intervention Plan Bed Mobility,Transfers,Gait, Therapeutic Exercise PT Plan Frequency Daily Duration LOS Discharge Goals Bed Transfer Ability Independent Sit to Stand Chair Transfer Ability Independent Ambulation Assistive Device Rolling Walker Ambulation Distance (feet) 30 Discharge Plan PT Discharge Plan Pt is currently appropriate to return home with family assist and home health therapy once medically stable for d/c . G -code Required No Eval Complexity Eval Charge Codes 27151 - Moderate Complexity
--- NOTE | 2022-07-04 10:49 | EXP.DC.SUM ---
General Admission date:: 07/03/22 Discharge date: 07/04/22 HPI HPI HPI: Mr. Peterson is a 76-year-old male with a past medical history of cerebellar CVA, COPD, CAD, Chronic Atrial fibrillation on chronic anticoagulation and seizure disoder. He presented to [facility] through the ER due to weakness, cough and fevers x 4 days duration. In the ER the patient had a Cxray that showed new patchy opacities in the left lower lung lobe. Covid and Flu testing were negative. WBC on CBC was elevated at 16.7. Temperature was elevated at 103.2, HR was elevated at 110 and RR was elevated at 35. In the ER the patient had blood cultures x 2 drawn and was given empiric antibiotics of Rocephin and Azithromycin. The patient will be admitted with initial impression: Sepsis and Community Acquired Pneumonia. Hospital Course Hospital Course Hospital Course: 76-year-old male with chronic tobacco use, h/o CVA cerebellar, seizure disorder, chronic atrial fibrillation presents with a 4-day history of cough, shortness of air, weakness and fevers. - Sepsis (POA) -Community-acquired pneumonia Met sepsis criteria on admission with fever of 103.2, white cell count of 16.7, heart rate of 110 respiratory rate 35. Chest x-ray showing left lower lobe opacity. Cultures obtained. Started on empiric antibiotics with azithromycin and Rocephin. Tolerated well with defervescent's of symptoms overnight. Patient hemodynamically stable and off of supplemental oxygen by morning. At baseline level of function. Tolerating good p.o. intake. Transition to oral antibiotics with 1 more day of azithromycin to complete a 3-day course and 5 more days of cefdinir to complete empiric course for pneumonia. - Atrial Fibrillation: Continue Home Medications of Metoprolol 25 mg po bid and Xarelto 20 mg po q day - Seizure Disorder: Continue home dose of Vimpat 100 mg po bid - COPD Not home oxygen dependent Reports smokes < 1/2 ppd x 68 years - Chronic Tobacco Use Cessation discussed, NRT ordered during admission. PT evaluated patient prior to discharge. Will benefit from home health. Referred for home health PT/OT. Medically stable for discharge home with daughter who is his caregiver. Close follow-up with PCP Exam Data for Last 24 hours Vital signs and Labs for Last 24 Hours: Temp Pulse Resp BP Pulse Ox 97.8 F 90 18 125/61 95 07/04/22 07:42 07/04/22 07:42 07/04/22 07:42 07/04/22 07:42 07/04/22 07:42 Laboratory Results - last 24 hr 07/03/22 16:15: WBC 16.7 H, RBC 4.61, Hgb 14.4, Hct 44.5, MCV 96.5 H, MCH 31.2, MCHC 32.3, RDW 13.4, Plt Count 348, MPV 8.0, Neut % (Auto) 93.8 H, Lymph % (Auto) 2.1 L, Calhoun % (Auto) 3.5, Eos % (Auto) 0.3, Baso % (Auto) 0.1, Neut # (Auto) 15.7 H, Lymph # (Auto) 0.4 L, Calhoun # (Auto) 0.6, Eos # (Auto) 0.1, Baso # (Auto) 0.0, Total Counted 100, Neutrophils % (Manual) 93 H, Lymphocytes % (Manual) 2 L, Monocytes % (Manual) 5, Platelet Estimate Normal, RBC Morphology Not Reportable, Acanthocytes (Spur) 1+ 07/03/22 16:15: Sodium 144, Potassium 3.3 L, Chloride 105, Carbon Dioxide 30, Anion Gap 12.3, BUN 24 H, Creatinine 1.10, Estimated Creat Clear 51, Estimated GFR 65, Est GFR ( Amer) 78, Glucose 145 H, Calcium 6.9 L, Total Bilirubin 0.7, AST 36, ALT 27, Alkaline Phosphatase 89, Troponin I < 0.01, Total Protein 6.6, Albumin 3.8, Globulin 2.8, Albumin/Globulin Ratio 1.4 07/03/22 16:15: Lactate 2.2 H 07/03/22 16:32: SARS-CoV-2 (PCR) Not detected, Influenza A Untype (PCR) Not detected, Influenza Type B (PCR) Not detected 07/03/22 20:46: Lactate 0.9 07/04/22 06:25: WBC 13.9 H, RBC 3.86 L, Hgb 12.1 L D, Hct 37.8 L, MCV 98.1 H, MCH 31.3 H, MCHC 31.9, RDW 13.3, Plt Count 255 D, MPV 8.0, Neut % (Auto) 85.6 H, Lymph % (Auto) 10.7, Calhoun % (Auto) 3.5, Eos % (Auto) 0.1, Baso % (Auto) 0.2, Neut # (Auto) 11.9 H, Lymph # (Auto) 1.5, Calhoun # (Auto) 0.5, Eos # (Auto) 0.0, Baso # (Auto) 0.0, Total Counted 100, Neutrophils % (Manual) 80 H, Lympho
--- NOTE | 2022-07-04 11:05 | SW/DCPLANNER ---
Addendum entered by Kellie Camacho 07/04/22 11:20: [facility]/ Michele stated they will accept this patient and services will begin this week. Original Note: Patient information/order has been faxed to [facility] at families request. I will follow up with Michele once patient information/order is reviewed. Patient will discharge home today.
--- NOTE | 2022-07-04 11:10 | HMH.PHAINT1 ---
Pharmacy Intervention Comments: Discussed discharge medications with patient. Patient verbalized understanding and had no questions at this time
[2022-07-04 11:15] VITALS: PULSE 77; PULSE 89
--- NOTE | 2022-07-04 14:10 | HMH.OTEV ---
OT Inpatient Evaluation Rehab OT IP Evaluation Start: 07/04/22 09:29 Freq: ONCE Status: Active Protocol: Document 07/04/22 13:51 ERICA (Rec: 07/04/22 14:10 ERICA [id number]) Rehab OT IP Assessment Subjective History Pt was seen resting in bed upon arrivial. Pt was oriented x3 person, place, and . Pt was agreeable to engage in therapy evaluation. Pt was admitted to [facility] on 07/03/22 due to Weakness, cough, fevers, SOA. Pt reports that he was independent in all ADLs and IADLs. Pt reports that he lives with his at his daughter's house, where there is two steps upon entering house and one step to go into the kitchen. He reports that his daughter assists with all cooking and cleaning tasks. Pt reports that is not able to drive since his past stroke, and his daughter completes all grocery shopping tasks. Pt reports that he uses a walker for functional mobility within the house. Pt has a past medical history of the following: Arthritis Atrial fibrillation, new onset BPH (benign prostatic hyperplasia) Cardiac arrhythmia Cerebellar hemorrhage, acute COPD exacerbation Coronary artery disease Depression Encounter for feeding tube placement Gout History of CVA with residual deficit History of gastroesophageal reflux (GERD) History of stroke HLD (hyperlipidemia) HTN (hypertension) Hyperplastic colon polyp Hypokalemia Insomnia Intermittent confusion
--- NOTE | 2022-07-04 14:31 | PC.NURSE ---
Called patient daughter to update on discharge status. No answer.
[2022-07-04 14:59] VITALS: BP 111/63; PULSE 71; RESP 17; TEMP 36.6; O2SAT 96
--- NOTE | 2022-07-06 11:35 | CARE MANAGER ---
Attempted to contact patient x2 related to hospital discharge. Left VM. LISANDRA Cohen
== END 2022-07-04 15:30 | disposition home health service (06) ==
LOC: ER 18:09 → 2ND 18:49
PROVIDERS: Admitting Provider Internal Medicine Adolescent Medicine; Emergency Provider Student in an Organized Health Care Education/Training Program; PCP Nurse Practitioner Family; Visit Provider Internal Medicine Adolescent Medicine
DX: J18.9 Pneumonia, unspecified organism (principal); I48.20 Chronic atrial fibrillation, unspecified; G40.909 Epilepsy, unspecified, not intractable, without status epilepticus; J44.9 Chronic obstructive pulmonary disease, unspecified; M10.9 Gout, unspecified; Z79.01 Long term (current) use of anticoagulants; I25.10 Atherosclerotic heart disease of native coronary artery without angina pectoris; F17.210 Nicotine dependence, cigarettes, uncomplicated; I69.30 Unspecified sequelae of cerebral infarction; Z79.899 Other long term (current) drug therapy; Z20.822 Contact with and (suspected) exposure to COVID-19
CPT/HCPCS: G0378; 36415; 70450; 71045; 80053; 83605; 83735; 84484; 85007; 85025; 87040; 93005; 94640; 97116; 97162; 97165; 99285; C9803; J0456; J0696; U0003; U0005

== ENCOUNTER 2022-07-11 10:32 | Day surgery (SDC) | payer MEDICARE, BC, SELFPAY ==
[2022-07-10 12:19] VITALS: BMI 21.8
[2022-07-11 10:52] VITALS: BP 146/93; PULSE 79; RESP 18; TEMP 36.3; O2SAT 96
[2022-07-11 11:35] VITALS: O2SAT 96
[2022-07-11 11:52] VITALS: BP 85/53; PULSE 69; RESP 14; TEMP 36.7; O2SAT 92
--- NOTE | 2022-07-11 11:54 | HMH.SCOPE ---
Procedure: Date: 07/11/22 Patient Date of :: 1945 Procedure Performed:: Esophagogastroduodenoscopy with biopsy Indications:: Nausea/vomiting Dysphagia History of stroke History of percutaneous endoscopic gastrostomy tube Performing Provider:: Harpal Fry MD Referring Provider:: Dr. Whitehead Sedation:: Monitored anesthesia care Procedure:: After informed consent was obtained the patient was taken to the endoscopy suite. Sedation ensued after the patient was transferred to the left lateral decubitus position. Pulse, blood pressure, and oxygen saturation were monitored throughout the procedure. The endoscope was advanced beyond the duodenal bulb. Retroflexion within the gastric lumen was accomplished. The gastroscope was carefully removed and the patient was transferred to recovery in stable condition. Please see findings and specimens below for detail. Findings:: Gastroesophageal junction at 44 cm Sliding hiatal hernia Patchy gastritis Patchy duodenitis Moderate lack of relaxation of proximal gastric body limiting visualization Specimens:: Antral biopsy Recommendations:: Follow-up pathology May benefit from repeat barium swallow and/or modified barium swallow (completed 3 years ago) May benefit from UGI/SBFT May benefit from gastric emptying study Complications:: No immediate Estimated blood obtained (mL): 1
--- NOTE | 2022-07-11 11:55 | EXP.ANES.CKL ---
[facility] Disclaimer: The information contained in this section may have been updated after the patient was seen, as this information can be updated by other users. Medical History Arthritis Atrial fibrillation, new onset BPH (benign prostatic hyperplasia) Cardiac arrhythmia Cerebellar hemorrhage, acute COPD exacerbation Coronary artery disease Depression Encounter for feeding tube placement Gout History of CVA with residual deficit History of gastroesophageal reflux (GERD) History of stroke HLD (hyperlipidemia) HTN (hypertension) Hyperplastic colon polyp Hypokalemia Insomnia Intermittent confusion Neurogenic bowel Numbness in both hands Peripheral edema Shingles Tobacco abuse UGIB (upper gastrointestinal bleed) Ventricular dysrhythmia Surgical History S/P ventricular shunt placement Stented coronary artery Family History Other Colon cancer Social History Smoking Status: Current every day smoker tobacco type: cigarettes packs per day: 1 second hand exposure: Yes alcohol intake: never substance use type: denies use current occupational status: disabled Travel in the last 8 weeks: None household members: spouse housing: house caffeine: Yes [facility] Anesthesia Checklist Patient Identification Patient Identification: Verbal (Name & ) Structural Data Admitted From: Home Planned Operative Procedure/s: egd Consent for Planned Operative Procedure(s) Verified: Yes Additional verifications Anesthesia Reactions: No Airway Assessment C-Spine Mobility Assessed: Yes TMJ Mobility Assessed: Yes Dentition: Edentulous Neurological Assessment Level of Consciousness: Awake, Alert and Appropriate Anesthesia Plan Anesthesia Risk discussed: Yes Anesthesia Plan: Verified ASA Class: III Anesthesia Type: MAC
[2022-07-11 12:02] VITALS: BP 90/57; PULSE 65; RESP 15; O2SAT 93
[2022-07-11 12:12] VITALS: BP 106/66; PULSE 69; RESP 16; O2SAT 94
[2022-07-11 12:22] VITALS: BP 104/65; PULSE 67; RESP 17; O2SAT 94
== END 2022-07-11 12:32 | disposition home or self-care (01) ==
PROVIDERS: PCP Family Medicine; Visit Provider Surgery
PROC: 0DJ08ZZ Inspection of Upper Intestinal Tract, Via Natural or Artificial Opening Endoscopic (ICD-10-PCS; CPT 43235; principal; 2022-07-11 11:30)
DX: R13.10 Dysphagia, unspecified (principal); R11.2 Nausea with vomiting, unspecified; K29.70 Gastritis, unspecified, without bleeding; K29.80 Duodenitis without bleeding; K44.9 Diaphragmatic hernia without obstruction or gangrene; F17.210 Nicotine dependence, cigarettes, uncomplicated; Z79.899 Other long term (current) drug therapy
CPT/HCPCS: 43239; 88305

== ENCOUNTER → 2022-07-12 13:50 | Outpatient (CLI) | payer MEDICARE, BC, SELFPAY ==
[2022-07-12 17:19] LABS: Basophils # 0.1 K/mm3 (0-0.2); Basophils % 1.1 % (0.1-2.0); Eosinophils % 0.4 % (0.1-12.0); Hemoglobin 12.9 g/dL (14.1-18.0); Lymphocytes # 1.3 K/mm3 (0.7-4.5); Lymphocytes % 19.6 % (10-50); Mean Corpuscular HGB Conc 31.5 g/dL (31.8-35.4); Mean Corpuscular Hemoglobin 31.2 pg (27.0-31.2); Mean Corpuscular Volume 99.1 fl (80-94); Mean Platelet Volume 8.6 fl (7.4-10.4); Monocytes # 0.4 K/mm3 (0.1-1.0); Monocytes % 6.1 % (1.7-9.3); Neutrophils % 72.9 % (37.0-80.0); Platelet Count 439 K/mm3 (142-424); Red Blood Count 4.14 M/mm3 (4.60-6.20); Red Cell Distribution Width 13.4 % (11.5-17.5); White Blood Count 6.8 K/mm3 (4.8-10.8)
[2022-07-12 18:01] LABS: Anion Gap 9.1 mEq/L (5-15); Blood Urea Nitrogen 18 mg/dl (9-20); Calcium 7.9 mg/dl (8.4-10.2); Carbon Dioxide 31 mmol/L (22.0-30.0); Chloride 101 mmol/L (98-107); Estimated Glomerular Filt Rate 72 ml/min (>60); GFR (African American) 87 ML/MIN (>60); Glucose 108 mg/dl (74-100); Magnesium 1.1 mg/dl (1.6-2.3); Potassium 5.1 mmoL/L (3.5-5.1); Sodium 136 mmol/L (136-145)
== END ==
PROVIDERS: PCP Family Medicine; Visit Provider Family Medicine
DX: R79.0 Abnormal level of blood mineral (principal); I10 Essential (primary) hypertension; E87.6 Hypokalemia
CPT/HCPCS: 80048; 83735; 85025

== ENCOUNTER → 2023-01-26 13:55 | Outpatient (CLI) | payer MEDICARE, BC, SELFPAY | PROVIDERS: PCP Family Medicine; Visit Provider Nurse Practitioner Family | DX: R09.89 Other specified symptoms and signs involving the circulatory and respiratory systems (principal) | CPT/HCPCS: 93923 ==

== ENCOUNTER → 2023-04-18 17:31 | Outpatient (CLI) | payer MEDICARE, BC, SELFPAY ==
--- NOTE | 2023-04-18 17:53 | XR_ITS ---
PROCEDURE INFORMATION: Exam: XR Lumbosacral Spine Exam date and time: 04/18/2023 5:49 PM Age: 77 years old Clinical indication: Low back pain TECHNIQUE: Imaging protocol: Radiologic exam of the lumbosacral spine. Views: 2 or 3 views. COMPARISON: CT ABDOMEN PELVIS W CON 06/09/2019 9:44 PM FINDINGS: Bones/joints: There is diffuse osseous demineralization. Nonspecific lower thoracic wedge deformities without compression injury identified. There is mild lower lumbar degenerative disease with facet arthropathy and intervertebral disc space narrowing. No acute fracture or dislocation is identified. Soft tissues: Unremarkable. Vasculature: Scattered atherosclerotic disease of the arterial vasculature. Other findings: Prevertebral and paravertebral soft tissues appear unremarkable. IMPRESSION: Degenerative disease without acute injury identified.
== END ==
PROVIDERS: PCP Family Medicine; Visit Provider Family Medicine
DX: M54.50 Low back pain, unspecified (principal)
CPT/HCPCS: 72100

== ENCOUNTER 2023-09-13 11:41 | Outpatient (CLI) | payer MEDICARE, BC, SELFPAY ==
[2023-09-13 14:01] LABS: INR 1.06 (0.9-1.1); Prothrombin Time 11.4 seconds (10.1-12.5)
[2023-09-13 14:11] LABS: Basophils # 0.1 K/mm3 (0-0.2); Basophils % 0.6 % (0.1-2.0); Eosinophils % 0.5 % (0.1-12.0); Hematocrit 43.3 % (42.0-52.0); Hemoglobin 14.2 g/dL (14.1-18.0); Lymphocytes # 1.2 K/mm3 (0.7-4.5); Lymphocytes % 14.2 % (10-50); Mean Corpuscular HGB Conc 32.8 g/dL (31.8-35.4); Mean Corpuscular Hemoglobin 31.5 pg (27.0-31.2); Mean Corpuscular Volume 96.1 fl (80-94); Mean Platelet Volume 8.5 fl (7.4-10.4); Monocytes # 0.6 K/mm3 (0.1-1.0); Monocytes % 6.6 % (1.7-9.3); Neutrophils # 6.5 K/mm3 (1.8-7.8); Neutrophils % 78.1 % (37.0-80.0); Platelet Count 277 K/mm3 (142-424); Red Blood Count 4.51 M/mm3 (4.60-6.20); Red Cell Distribution Width 14.4 % (11.5-17.5); White Blood Count 8.3 K/mm3 (4.8-10.8)
[2023-09-13 14:26] LABS: Alanine Aminotransferase 13 U/L (12-78); Albumin Level 3.8 g/dl (3.5-5.0); Albumin/Globulin Ratio 1.6 (1.1-1.8); Alkaline Phosphatase 101 U/L (38-126); Anion Gap 9.1 mEq/L (5-15); Aspartate Amino Transferase 23 U/L (17-59); Bilirubin,Total 0.5 mg/dl (0.2-1.3); Blood Urea Nitrogen 20 mg/dl (9-20); Carbon Dioxide 28 mmol/L (22.0-30.0); Chloride 108 mmol/L (98-107); Estimated Glomerular Filt Rate 64 ml/min (>60); GFR (African American) 78 ML/MIN (>60); Globulin 2.4 g/dL (1.3-3.2); Glucose 90 mg/dl (74-100); Potassium 4.1 mmoL/L (3.5-5.1); Sodium 141 mmol/L (136-145); Total Protein,Serum 6.2 g/dl (6.3-8.2)
== END 2023-09-13 23:59 | disposition home or self-care (01) ==
LOC: LAB.DROPOF 09-17 11:42
PROVIDERS: PCP Family Medicine; Visit Provider Family Medicine
DX: I10 Essential (primary) hypertension (principal); Z79.01 Long term (current) use of anticoagulants; I48.91 Unspecified atrial fibrillation; Z51.81 Encounter for therapeutic drug level monitoring
CPT/HCPCS: 80053; 85025; 85610

== ENCOUNTER 2024-04-22 09:05 | Outpatient (RCR) | payer MEDICARE, BC, SELFPAY | END 2024-04-22 23:59 | disposition home or self-care (01) | LOC: PT 09:05 | PROVIDERS: PCP Family Medicine; Visit Provider Family Medicine | DX: I63.9 Cerebral infarction, unspecified (principal); M54.50 Low back pain, unspecified; I10 Essential (primary) hypertension | CPT/HCPCS: 97542 ==

== ENCOUNTER 2025-03-18 09:42 | Outpatient (CLI) | payer MEDICARE, SELFPAY ==
[2025-03-18 17:49] LABS: Hematocrit 44.3 % (42.0-52.0); Hemoglobin 13.9 g/dL (14.1-18.0); Immature Granulocytes % 0.6 %; Mean Corpuscular HGB Conc 31.4 g/dL (31.8-35.4); Mean Corpuscular Hemoglobin 29.9 pg (27.0-31.2); Mean Corpuscular Volume 95.3 fl (80-94); Nucleated Red Blood Cells % 0 %; Platelet Count 321 K/mm3 (142-424); Red Blood Count 4.65 M/mm3 (4.60-6.20); Red Cell Distribution Width-SD 49.0 fL; White Blood Count 7.1 K/mm3 (4.8-10.8)
[2025-03-18 18:50] LABS: Albumin Level 4.4 g/dl (3.5-5.0); Chloride 105 mmol/L (98-107); Potassium 4.0 mmoL/L (3.5-5.1); Sodium 142 mmol/L (136-145)
[2025-03-18 18:52] LABS: Alanine Aminotransferase 13 U/L (12-78); Anion Gap 12.0 mEq/L (5-15); Aspartate Amino Transferase 25 U/L (17-59); Bilirubin,Total 0.5 mg/dl (0.2-1.3); Blood Urea Nitrogen 18 mg/dl (9-20); Carbon Dioxide 29 mmol/L (22.0-30.0); Creatinine,Serum 1.20 mg/dl (0.66-1.25); Estimated Glomerular Filt Rate 58 ml/min (>60); GFR (African American) 70 ML/MIN (>60)
[2025-03-18 18:53] LABS: Albumin/Globulin Ratio 2.1 (1.1-1.8); Alkaline Phosphatase 112 U/L (38-126); Calcium 8.7 mg/dl (8.4-10.2); Cholesterol 181 mg/dl (140-200); Globulin 2.1 g/dL (1.3-3.2); Glucose 90 mg/dl (74-100); HDL Cholesterol 49 mg/dl (40-60); Total Protein,Serum 6.5 g/dl (6.3-8.2); Triglycerides 57 mg/dl (30-150)
[2025-03-18 19:27] LABS: Thyroid Stimulating Hormone 2.61 uIU/mL (0.465-4.68)
[2025-03-18 19:28] LABS: Hemoglobin A1C 5.5 % (4.0-6.0)
--- OUTSIDE RECORDS SUMMARY | 2025-03-20 09:55 | XMS_ITS | Encounter Summary ---
Author Organization Healthcare Address [address] [place] [address] Care Team Providers Care Clinical Rn Liaison Name Role Phone Ari Lovell MD Primary Care Provider + [phone] Erin Velez PA Unavailable [phone] Ronny Whitehead MD Primary Care Provider Isabel vailable Encounter Details Date Type Department Care Team (Late st Contact Info) Description 12/22/2019 Orders Only External Location [address] [place] [address] Roberta Ledezma MD [address] [place] [address] Social History Tobacco Use Types Packs/Day Years Used Date Smoking Tobacco: Never Assessed Sex and Gender Information Value Date Recorded Sex Assigned at Not on file Legal Sex Male 7:37 PM EDT Gender Identity Not on file Sexual Orientation Not on file documented as of this encounter Plan of Treatment Not on file documented as of this encounter Procedures Procedure Name Priority Date/Time Associated Diagnosis Comments MR HEAD W AND WO IV CONTRAST 12/22/2019 10:31 AM EDT documented in this encounter Results * MR Head w and wo IV Contrast (12/22/2019 10:31 AM EDT) Anatomical Region Laterality Modality Head Magnetic Resonan ce 12/22/2019 10:3 1 AM EDT us Roberta Ledezma MD IMG MRI PROCEDURES Final Resu lt documented in this encounter Visit Diagnoses Not on filedocumented in this encounter Additional Health Concerns Infection Onset Date Last Indicated Resolved Time Meningitis Rule-Out 04/25/2019 04/25/201909/18/20 21 5:23 AM EDT documented as of this encounter Care Teams Clinical Rn Liaison Relationship Specialty Start Date End Date Ari Lovell MD [address] [place] [address] PCP - General 09/24/20 05/31/22 Ronny Whitehead MD [address] [place] [address] PCP - General Family Medicine 06/01/22 Erin Velez PA [address] [place] [address] Physician Safety Pin Assembling Machine Operator Neurosurgery 09/13/21 documented as of this encounter
--- OUTSIDE RECORDS SUMMARY | 2025-03-20 09:55 | XMS_ITS | Encounter Summary ---
Author Organization Healthcare Address [address] [place] [address] Care Team Providers Care Supervisor Rubber Covering Name Role Phone Ari Lovell MD Primary Care Provider + [phone] Erin Velez Unavailable [phone] Ronny Whitehead MD Primary Care Provider Isabel vailable Encounter Details Date Type Department Care Team (Late st Contact Info) Description 01/15/2020 Orders Only External Location [address] [place] [address] Liset Espinal DO Social History Tobacco Use Types Packs/Day Years [...] Procedure Name Priority Date/Time Associated Diagnosis Comments CT HEAD WO IV CONTRAST 01/15/2020 12:11 PM EDT documented in this encounter Results * CT Head wo IV Contrast (01/15/2020 12:11 PM EDT) Anatomical Region Laterality Modality Head Computed Tomogra phy 01/15/2020 12:1 1 PM EDT Liset Espinal DO IMG CT PROCEDURES Final Result documented in this encounter Visit Diagnoses Not on filedocumented in this encounter Additional Health Concerns Infection Onset Date Last Indicated Resolved Time Meningitis Rule-Out 04/25/2019 04/25/2019 09/19/19 5:23 AM EDT documented as of this encounter Care Teams Supervisor Rubber Covering Relationship Specialty Start Date End Date Ari Lovell MD [address] [place] [address] PCP - General 09/24/20 05/31/22 Ronny Whitehead MD [address] [place] [address] PCP - General Family Medicine 06/01/22 Erin Velez PA [address] [place] [address] Physician Cotton Buyer Neurosurgery 09/13/21 documented as of this encounter
--- OUTSIDE RECORDS SUMMARY | 2025-03-20 09:55 | XMS_ITS | Encounter Summary ---
Author Organization Healthcare Address [address] [place] [address] Care Team Providers Care Weight Checker Name Role Phone Ari Lovell MD Primary Care Provider + [phone] Erin Velez PA Unavailable [phone] Ronny Whitehead MD Primary Care Provider Isabel vailable Encounter Details Date Type Department Care Team (Late st Contact Info) Description 10/21/2019 Orders Only External Location [address] [place] [address] Provider, External Social History Tobacco Use Types Packs/Day Years [...] Diagnosis Comments CT HEAD WO IV CONTRAST 10/21/2019 8:51 AM EDT documented in this encounter Results * CT Head wo IV Contrast (10/21/2019 8:51 AM EDT) Anatomical Region Laterality Modality Head Computed Tomogra phy 10/21/2019 8:51 AM EDT us External Provider IMG CT PROCEDURES Final Result documented in this encounter Visit Diagnoses Not on filedocumented in this encounter Additional Health Concerns Infection Onset Date Last Indicated Resolved Time Meningitis Rule-Out 04/25/2019 04/25/2019 09/19/19 21 5:23 AM EDT documented as of this encounter Care Teams Weight Checker Relationship Specialty Start Date End Date Ari Lovell MD [address] [place] [address] PCP - General 09/24/20 05/31/22 Ronny Whitehead MD [address] [place] [address] PCP - General Family Medicine 06/01/22 Erin Velez PA [address] [address] Physician Retirement Benefits Specialist Neurosurgery 09/13/21 documented as of this encounter
--- OUTSIDE RECORDS SUMMARY | 2025-03-20 09:55 | XMS_ITS | Encounter Summary ---
Author Organization Healthcare Address [address] [place] [address] Care Team Providers Care Chute Tender Name Role Phone Ari Lovell MD Primary Care Provider + [phone] Erin Velez Unavailable [phone] Ronny Whitehead MD Primary Care Provider Isabel vailable Encounter Details Date Type Department Care Team (Late st Contact Info) Description 09/05/2021 Orders Only External Location [address] [place] [address] Erin Velez, PA [address] [place] [address] Social History Tobacco Use Types Packs/Day Years Used Date Smoking Tobacco: Every Day Smokeless Tobacco: Never Alcohol Use Standard Drinks/Week Comments Never 0 (1 standard drink = 0.6 oz pur e alcohol) Sex and Gender Information Value Date Recorded Sex Assigned at Not on file Legal Sex Male 7:37 PM EDT Gender Identity Not on file Sexual Orientation Not on file COVID-19 Exposure Response Date Recorded In the last 10 days, have yo u been in contact with someone who was confirmed or suspected to have Coronavirus/COVID-19? No / Unsure 08/23/2021 11:24 AM EDT documented as of this encounter Plan of Treatment Not on file documented as of this encounter Procedures Procedure Name Priority Date/Time Associated Diagnosis Comments CT ANGIO HEAD 09/05/2021 8:48 AM EDT documented in this encounter Results * CT Angio Head (09/05/2021 8:48 AM EDT) Anatomical Region Laterality Modality [place] Computed Tomogr aphy 09/05/2021 8:48 AM EDT Erin BRAUN IMG CT PROCEDURES Final Resu lt documented in this encounter Visit Diagnoses Not on filedocumented in this encounter Additional Health Concerns Assessment Noted Time A fall risk assessment has been complete d for the patient 08/23/2021 11:43 AM EDT documented as of this encounter Care Teams Chute Tender Relationship Specialty Start Date End Date Ari Lovell MD [address] [place] [address] PCP - General 09/24/20 05/31/22 Ronny Whitehead MD [address] [place] [address] PCP - General Family Medicine 06/01/22 Erin Velez PA [address] [place] [address] Physician Scale Reclamation Tender Neurosurgery 09/13/21 documented as of this encounter
--- OUTSIDE RECORDS SUMMARY | 2025-03-20 09:55 | XMS_ITS | Encounter Summary ---
Author Organization Healthcare Address [address] [place] [address] Care Team Providers Care Master Pilot Name Role Phone Ari Lovell MD Primary Care Provider + [phone] Erin Velez PA Unavailable [phone] Ronny Whitehead MD Primary Care Provider Isabel vailable Encounter Details Date Type Department Care Team ([facility] st Contact Info) Description 09/05/2021 Orders Only External Location [address] [place] [address] Provider, External Social History Tobacco Use Types [...] Name Priority Date/Time Associated Diagnosis Comments CT NEURO OUTSIDE IMAGES 09/05/2021 8:48 AM EDT documented in this encounter Results * CT NEURO OUTSIDE IMAGES (09/05/2021 8:48 AM EDT) Anatomical Region Laterality Modality Computed Tomogra phy 09/05/2021 8:48 AM EDT us External Provider IMG CT PROCEDURES Final Result documented in this encounter Visit Diagnoses Not on filedocumented in this encounter Additional Health Concerns Assessment Noted Time A fall risk assessment has been complete d for the patient 08/23/2021 11:43 AM EDT documented as of this encounter Care Teams Master Pilot Relationship Specialty Start Date End Date Ari Lovell MD [address] [place] [address] PCP - General 09/24/20 05/31/22 Ronny Whitehead MD [address] [place] [address] PCP - General Family Medicine 06/01/22 Erin Velez PA [address] [place] [address] Physician Ballistics Laboratory Gunsmith Neurosurgery 09/13/21 documented as of this encounter
--- OUTSIDE RECORDS SUMMARY | 2025-03-20 09:55 | XMS_ITS | Clinical Summary ---
Author Organization Healthcare Address [address] [place] [address] Care Team Providers Care Laborer Rags Name Role Phone Erin Velez PA Unavailable [phone] Ronny Whitehead MD Primary Care Provider Isabel vailable Allergies Active Allergy Reactions Criticality Noted Date Comments Bee Venom Unknown - Patient st ates they do not know rxn details Low 04/21/2019 Wasp Venom Medications EPINEPHrine (Epipen-JR) 0.15 MG/0.3ML injection syringe Inject 1 Syringe into the muscle See administration instructions. 11/03/19 21 Active metoprolol tartrate (Lopressor) 25 MG tablet Take 1 tablet by mouth 1 (one) time each day. 09/18/19 20 Active Xarelto 20 MG tablet Take 1 tablet by mouth every night. 10/30/19 21 Active omeprazole (PriLOSEC) [address] capsule 01/18/20 22 Active meclizine (Antivert) 12.5 MG tablet 2 (two) times a day. 01/18/20 22 Active atorvastatin (Lipitor) 80 MG tablet 1 tablet DAILY (route: oral) 01/18/20 22 Active ondansetron ODT (Zofran-ODT) 4 MG disintegrating tablet Take 4 mg by mouth every 8 (eight) hours if needed for nausea or vomiting. Active tamsulosin (Flomax) 0.4 MG 24 hr capsule 08/03/19 23 Active finasteride (Proscar) 5 MG tablet 08/03/19 23 Active escitalopram (Lexapro) 5 MG tablet 07/13/19 23 Active Vimpat 100 MG tablet TAKE 1 TABLET BY MOUTH TWO TIMES A DAY 60 tablet 3 10/03/19 23 Active Active Problems Problem Noted Date Diagnosed Date Stable central retinal vein occlusion of right e ye 09/03/2023 Central retinal vein occlusi on with macular edema of right eye 09/03/2023 Pseudophakia of left eye 06/20/2022 Branch retinal vein occlusio n of right eye with macular edema 03/15/2022 Benign prostatic hyperplasia without lower urinary tract symptoms 01/17/2022 Chronic obstructive pulmonary disease, unspecifi ed 01/17/2022 Essential (primary) hypertension 01/17/2022 Gout, unspecified 01/17/2022 History of falling 01/17/2022 detention (current) use of anticoagulants 2021 Personal history of colonic polyps 01/17/2022 Overview (02/14/2024): Diagnosis Replacement by system per IMO Regulatory Update 02/12/2024 Personal history of nicotine dependence 01/18/20 Prsnl hx of TIA (TIA), and cereb infrc w/o resid deficits 01/17/2022 Unspecified atrial fibrillation 01/17/2022 Athscl heart disease of nabeel ve coronary artery w/o ang pctrs 01/17/2022 Hyperlipidemia, unspecified 01/16/2022 Pseudophakia of both eyes 10/26/2021 Cerebral arterial aneurysm 09/13/2021 Depression, unspecified 05/14/2021 Neurogenic bowel, not elsewhere classified 05/14 Presence of coronary angioplasty implant and gra ft 05/14/2021 Exudative age-related macula r degeneration of both eyes with active choroidal neovascularization 04/12/2021 Cerebellar hemorrhage 02/23/2021 Unqualified visual loss, both eyes 02/23/2021 Binocular vision disorder with diplopia 02/24/20 21 Cerebrovascular accident (CVA) 10/13/2020 Macular vitelliform lesion 10/13/2020 PVD (posterior vitreous detachment), both eyes 0 10/13/2020 Imbalance 07/06/2020 Seizure 12/03/2019 Skull defect 11/26/2019 CAD (coronary artery disease) 11/21/2019 Gait disturbance, post-stroke 11/21/2019 Episodic confusion 11/21/2019 Hearing loss 11/21/2019 Subdural hemorrhage 11/21/2019 Transient speech disturbance 11/21/2019 Vertical diplopia 11/21/2019 Brain compression 11/21/2019 Cerebral edema 11/21/2019 Hydrocephalus 11/21/2019 ICH (intracerebral hemorrhage) 11/21/2019 IVH (intraventricular hemorrhage) 11/21/2019 HLD (hyperlipidemia) 11/21/2019 Resolved Problems Problem Noted Date Diagnosed Date Resolved Date Myopia of both eyes 08/04/2022 02/02/20 Regular astigmatism of both eyes 08/04/2022 02/01/2025 Insomnia, unspecified 01/17/20222024 Unspecified osteoarthritis, unspecified site 02/01/2025 Combined forms of age-relate d cataract of left eye 10/26/2021 08/04/2022 Combined forms of age-relate d cataract of both eyes 09/28/2021 08/04/2022 Hyperopia of both eyes 08/02/202102/01 Presbyopia 08/02/2021 02/01/2025 Nuclear sclerotic cataract of both eyes 10/13/2020 08/04/2022 Family History Medical History Relation Name Comments Colon cancer Father Relation Name Status Comments Father Social History Tobacco Use Types Packs/Day Years Used Date Smoking Tobacco: Every Day Cigarettes 0.5 68 Smokeless Tobacco: Never Tobacco Cessation:Ready to Q uit: Not Asked; Counseling Given: Not Answered Alcohol Use Standard Drinks/Week Comments Never 0 (1 standard drink = 0.6 oz pur e alcohol) Sex and Gender Information Value Date Recorded Sex Assigned at Not on file Legal Sex Male 7:37 PM EDT Gender Identity Not on file Sexual Orientation Not on file Last Filed Vital Signs Vital Sign Reading Time Taken Comments Blood Pressure 176/79 06/19/2022 1:07 PM EST Pulse 62 06/19/2022 1:07 PM EST Temperature 36.7 C (98.1 F) 06/19/2022 1:07 PM EST Respiratory Rate 16 06/19/2022 1:07 PM EST Oxygen Saturation 97% 06/19/2022 1:07 PM EST Inhaled Oxygen Concentration - - Weight 66.7 kg (147 lb 0.8 oz) 06/19/2022 9:30 A M EST Height 175.3 cm (5' 9 ) 06/19/2022 9:30 AM EST Body Mass Index 21.72 06/19/2022 9:30 AM EST Plan of Treatment Health Maintenance Due Date Last Done Comments [facility]-Depression Screening 1945 [facility]-Medicare Annual Wellness (AWV) 1945 [facility]-/Child/Adol SDOH Screenings 1945 [facility]- SDOH Screenings 07/26/1961 [facility]-Adult SDOH Screenings 07/26/1961 [facility]-DTaP,Tdap,and Td Vaccines (1 - Tdap) 07/26/1962 [facility]-Zoster Vaccines (1 of 2) 07/26/1993 [facility]-RSV Vaccine: 60+ Years or (1 - 1-dose 75+ series) 07/26/2018 [facility]-Pneumococcal Vaccine: 50+ Years (2 of 2 - PCV) 07/31/2018 07/31/2017 [id number] Vaccine ( - season) 2025 02/14/2024, 02/28/2022, 01/20/2021, Additional history exists [facility]-Influenza Vaccine (#1) 01/12/202502/13, 04/18/2023, 02/01/2021, Additional history exists [facility]-Lung Cancer Screening Discontinued 05/18/2019 HPV Vaccines Aged Out No longer eligi ble based on patient's age to complete this topic [facility]-HIB Vaccines Aged Out No longer e ligible based on patient's age to complete this topic [facility]-Hepatitis A Vaccines Aged Out No longer eligible based on patient's age to complete this topic [facility]-IPV Vaccines Aged Out No longer e ligible based on patient's age to complete this topic [facility]-Rotavirus Vaccines Aged Out No lo nger eligible based on patient's age to complete this topic Medical Devices Implanted Type Area [employer] Umpire Device Identifier Shelf Expiration Date Model / Serial / Lot Lens [id number] 23.5 - [id number] Implanted:Qty: 1 on 06/19/2022 by Latosha Winn MD at [facility] Left: [id number] 11/19/2026 [id number].235 / [id number] / [id number] Procedures Procedure Name Priority Date/Time Associated Diagnosis Comments CT ANGIO PULMONARY EMBOLISM Routine 05/18/2019 11:24 PM EST from Last 3 Months or Most Recently Relevant to Health Maintenance Results * CT Angio Pulmonary Embolism (05/18/2019 11:24 PM EST) Anatomical Region Laterality Modality Chest Computed Tomogra phy Narrative 05/18/2019 11:57 PM EST REQUESTING PHYSICIAN: SAIGE RIVERA REASON FOR EXAMINATION/PROCEDURE: RAD PDP:Y * SOA/CP while off home anticoagulation for ICH in april EXAMINATION / PROCEDURE: CT Pulmonary Embolism May 18 2019 - 23:24; CLINICAL INDICATION: SOA/C P while off home anticoagulation for ICH in april TECHNIQUE: Imaging of the chest was performed from thoracic inlet through upper abdomen, using spiral technique, following administration of IV contrast, Omnipaque 350, 100 mL per the pulia nary angiogram protocol. In addition, 3D images were created and reviewed. TOTAL DLP (Dose-Length Product): 370.27 mGy.cm. Please note: The reported value represents the total of one or more individual components during the CT acquisition on this date and at this time, and as such, the same value may appear in more than one CT report depending on the interpreting/reporting physicians. COMPARISON: Chest radiograph, less than 1 hour prior FINDINGS: Pulmonary Arteries/Vessels: No large central pulmonary embolus. Evaluation of the lobar, segmental and subsegmental pulmonary arteries is highly limited due to severe respiratory motion artifacts. Cardiac size within limits of normal. Moderate multivessel coronary calci fications. Mild to moderate calcific and noncalcific thoracic aortic atherosclerotic disease. Right Heart Strain: No evidence of right heart strain. Pleural/Pericardial space: No pneumothorax. No pleural effusions. No pericardial effusion. Lymph Nodes: Mildly enlarged right upper mediastinal/paraesophageal 14 mm lymph node on series 6 image 145. Lungs: Although characterization of pulmonary findings is highly limited due to motion artifacts, there is probable peribronchial va scular groundglass nodularity within the bilateral upper lobes and superior segment of bilateral lower lobes, which may represent age indeterminate small volume aspiration versus infection/inflammation. Right apical scarring, likely from prior infection/inflammation. Mediastinum: Otherwise unremarkable. Chest wall: No chest wall hematoma or contusion. Bones: No acute fracture within the chest. Upper Abdomen: Limited imaging of the upper abdomen is unremarkable. IMPRESSION: No large central pulmonary embolus. Evaluation of the lobar, segmental and subsegmental pulmonary arteries is highly limited due to severe respiratory motion artifacts. No right heart strain. Although characterization of pulmonary findings i s highly limited due to motion artifacts, there is probable peribronchial vascular groundglass nodularity within the bilateral upper lobes and superior segment of bilateral lower lobes, which may represent age indeterminate small volume aspira tion versus infection/inflammation. CRITICAL RESULT: No. COMMUNICATION: Per this written report. By electronically signing this report, I, the attending physician, attest that I have personally reviewed the images/data for the above e xamination(s) and agree with the final edited report. Verified by: CURLY OSULLIVAN M.D. on May 18 2019 11:55P Transcribed by: SRINIVASAN on May 18 2019 11:29P Dictated by: MICHAEL CRUZ M.D. on May 18 2019 11:29P Procedure Note Provider, MD Kayley - 09/06/2020 REQUESTING PHYSICIAN: SAIGE RIVERA REASON FOR EXAMINATION/PROCEDURE: RAD PDP:Y * SOA/CP while off home anticoagulation for ICH in april EXAMINATION / PROCEDURE: CT Pulmonary Embolism May 18 2019 - 23:24; CLINICAL INDICATION: SOA/C P while off home anticoagulation for ICH in april TECHNIQUE: Imaging of the chest was performed from thoracic inlet through upper abdomen, using spiral technique, following administration of IV contrast, Omnipaque 350, [facility]. In addition, 3D images were created and reviewed. TOTAL DLP (Dose-Length Product): 370.27 mGy.cm. Please note: The reported value represents the total of one or more individual components during the CT acquisition on this date and at this time, and as such, the same value may appear in more than one CT report depending on the interpreting/reporting physicians. COMPARISON: Chest radiograph, less than 1 hour prior FINDINGS: Pulmonary Arteries/Vessels: No large central pulmonary embolus. Evaluation of the lobar, segmental and subsegmental pulmonary arteries is highly limited due to severe respiratory motion artifacts. Cardiac size within limits of normal. Moderate multivessel coronary calci fications. Mild to moderate calcific and noncalcific thoracic aortic atherosclerotic disease. Right Heart Strain: No evidence of right heart strain. Pleural/Pericardial space: No pneumothorax. No pleural effusions. No pericardial effusion. Lymph Nodes: Mildly enlarged right upper mediastinal/paraesophageal 14 mm lymph node on series 6 image 145. Lungs: Although characterization of pulmonary findings is highly limited due to motion artifacts, there is probable peribronchial va scular groundglass nodularity within the bilateral upper lobes and superior segment of bilateral lower lobes, which may represent age indeterminate small volume aspiration versus infection/inflammation. Right apical scarring, likely from prior infection/inflammation. Mediastinum: Otherwise unremarkable. Chest wall: No chest wall hematoma or contusion. Bones: No acute fracture within the chest. Upper Abdomen: Limited imaging of the upper abdomen is unremarkable. IMPRESSION: No large central pulmonary embolus. Evaluation of the lobar, segmental and subsegmental pulmonary arteries is highly limited due to severe respiratory motion artifacts. No right heart strain. Although characterization of pulmonary findings i s highly limited due to motion artifacts, there is probable peribronchial vascular groundglass nodularity within the bilateral upper lobes and superior segment of bilateral lower lobes, which may represent age indeterminate small volume aspira tion versus infection/inflammation. CRITICAL RESULT: No. COMMUNICATION: Per this written report. By electronically signing this report, I, the attending physician, attest that I have personally reviewed the images/data for the above e xamination(s) and agree with the final edited report. Verified by: CURLY OSULLIVAN M.D. on May 18 2019 11:55P Transcribed by: SRINIVASAN on May 18 2019 11:29P Dictated by: MICHAEL CRUZ M.D. on May 18 2019 11:29P Saige Rivera MD IMG CT PROCEDURES Final Result from Last 3 Months or Most Recently Relevant to Health Maintenance Insurance MEDICARE [employer] Care Teams Laborer Rags Relationship Specialty Start Date End Date Ronny Whitehead MD [address] [place] [address] PCP - General Family Medicine 06/01/22 Erin Velez PA [address] [place] [address] Physician Immunohematologist Neurosurgery 09/13/21
== END 2025-03-18 23:59 ==
LOC: LAB.DROPOF 03-20 09:49
PROVIDERS: PCP Family Medicine; Visit Provider Family Medicine
DX: E78.5 Hyperlipidemia, unspecified (principal); R73.09 Other abnormal glucose; I48.91 Unspecified atrial fibrillation; Z12.5 Encounter for screening for malignant neoplasm of prostate; N40.0 Benign prostatic hyperplasia without lower urinary tract symptoms
CPT/HCPCS: 80053; 80061; 83036; 84443; 85025; G0103

== ENCOUNTER 2025-03-30 10:16 | Outpatient (CLI) | payer MEDICARE, SELFPAY ==
[2025-03-30 10:22] LABS: Microscopic, Urine URINE MICROSCOPIC (MICROSCOPIC)
[2025-03-30 12:42] LABS: Bilirubin,Urine Negative (Negative); Color,Urine YELLOW (Yellow); Glucose,Urine (UA) Negative (Negative); Ketones,Urine TRACE (Negative); Leukocyte Esterase,Urine Negative (Negative); PH,Urine 5.5 (5.0-8.5); Protein,Urine Negative (Negative); Specific Gravity, Urine 1.025 (1.005-1.030); Urobilinogen,Urine 0.2 EU/dl (0.2)
[2025-03-30 12:58] LABS: Bacteria,Urine Trace /lpf; Mucus,Urine 2+ /lpf; Squamous Epithelial Cell,Urine Occasional #/hpf (0-5)
== END 2025-03-30 23:59 | disposition home or self-care (01) ==
LOC: LAB 10:16
PROVIDERS: PCP Family Medicine; Visit Provider Urology
DX: N39.41 Urge incontinence (principal); R97.20 Elevated prostate specific antigen [PSA]; N40.0 Benign prostatic hyperplasia without lower urinary tract symptoms
CPT/HCPCS: 81001

== ENCOUNTER 2025-04-03 14:33 | Outpatient (CLI) | payer MEDICARE, SELFPAY ==
--- NOTE | 2025-04-03 14:30 | US_ITS ---
FINAL REPORT CLINICAL HISTORY: Urge incontience COMPARISON: None FINDINGS: ULTRASOUND BLADDER WITH POST VOID RESIDUAL Bladder volumes were estimated based on 3 dimensional measurements, pre- and postvoid. Prevoid bladder volume: 74 mls Postvoid bladder volume: 6 mls No obvious masses identified. IMPRESSION: Estimated bladder volumes as above with small postvoid residual. Reviewed, Interpreted and Dictated by Kashmir Hernández MD Transcribed by Bernadette Saenz Authenticated and [facility]
--- OUTSIDE RECORDS SUMMARY | 2025-04-03 14:36 | XMS_ITS | Encounter Summary ---
Author Organization Healthcare Address [address] [place] [address] Care Team Providers Care Pig Breeder Name Role Phone Ari Lovell MD Primary Care Provider [phone] Erin Velez Unavailable [phone] Ronny Whitehead MD Primary Care Provider Isabel vailable Encounter Details Date Type Department Care Team (Late st Contact Info) Description 09/05/2021 Orders Only External Location [address] [place] [address] Erin Velez, PA [address] [place] [address] Social History Tobacco Use Types [...] 8:48 AM EDT) Anatomical Region Laterality Modality [place] Computed Tomogr aphy 09/05/2021 8:48 AM EDT Erin BRAUN IMG CT PROCEDURES Final Resu lt documented in this encounter Visit Diagnoses Not on filedocumented in this encounter Additional Health Concerns Assessment Noted Time A fall risk assessment has been complete d for the patient 08/23/2021 11:43 AM EDT documented as of this encounter Care Teams Pig Breeder Relationship Specialty Start Date End Date Ari Lovell MD [address] [place] [address] PCP - General 09/24/20 05/31/22 Ronny Whitehead MD [address] [place] [address] PCP - General Family Medicine 06/01/22 Erin Velez PA [address] [place] [address] [place] [address] Physician Visitor Services Information Assistant Neurosurgery 09/13/21 documented as of this encounter
--- OUTSIDE RECORDS SUMMARY | 2025-04-03 14:36 | XMS_ITS | Encounter Summary ---
Author Organization Healthcare Address [address] [place] [address] Care Team Providers Care Diesel Power Mechanic Name Role Phone Ari Lovell MD Primary Care Provider + [phone] Erin Velez PA Unavailable [phone] Ronny Whitehead MD Primary Care Provider Isabel vailable Encounter Details Date Type Department Care Team (Late st Contact Info) Description 12/22/2019 Orders Only External Location [address] [place] [address] Roberta Ledezma MD [address] [place] [address] Social History Tobacco Use Types Packs/Day Years [...] documented as of this encounter Care Teams Diesel Power Mechanic Relationship Specialty Start Date End Date Ari Lovell MD [address] [place] [address] [place] [address] PCP - General 09/24/20 05/31/22 Ronny Whitehead MD [address] [place] [address] PCP - General Family Medicine 06/01/22 Erin Velez PA [address] [place] [address] Physician Rock Worker Neurosurgery 09/13/21 documented as of this encounter
--- OUTSIDE RECORDS SUMMARY | 2025-04-03 14:36 | XMS_ITS | Encounter Summary ---
Author Organization Healthcare Address [address] [place] [address] Care Team Providers Care Pipeline Systems Operator Name Role Phone Ari Lovell MD Primary Care Provider + [phone] Erin Velez Unavailable [phone] Ronny Whitehead MD Primary Care Provider Isabel vailable Encounter Details Date Type Department Care Team (Late st Contact Info) Description 01/15/2020 Orders Only External Location [address] [place] [address] Liset Espinal DO Social History Tobacco Use [...] documented as of this encounter Care Teams Pipeline Systems Operator Relationship Specialty Start Date End Date Ari Lovell MD [address] [place] [address] [place] [address] PCP - General 09/24/20 05/31/22 Ronny Whitehead MD [address] [place] [address] PCP - General Family Medicine 06/01/22 Erin Velez PA [address] [place] [address] Physician Lockstitch Sleeve Maker Neurosurgery 09/13/21 documented as of this encounter
--- OUTSIDE RECORDS SUMMARY | 2025-04-03 14:36 | XMS_ITS | Encounter Summary ---
Author Organization Healthcare Address [address] [place] [address] Care Team Providers Care Fire Regulator Name Role Phone Ari Lovell MD Primary Care Provider + [phone] Erin Velez PA Unavailable [phone] Ronny Whitehead MD Primary Care Provider Isabel vailable Encounter Details Date Type Department Care Team (Late st Contact Info) Description 10/21/2019 Orders Only External Location [address] [place] [address] Provider, External Social History Tobacco Use Types [...] documented as of this encounter Care Teams Fire Regulator Relationship Specialty Start Date End Date Ari Lovell MD [address] [place] [address] PCP - General 09/24/20 05/31/22 Ronny Whitehead MD [address] [place] [address] PCP - General Family Medicine 06/01/22 Erin Velez PA [address] [address] Physician Securities Compliance Examiner Neurosurgery 09/13/21 documented as of this encounter
--- OUTSIDE RECORDS SUMMARY | 2025-04-03 14:36 | XMS_ITS | Clinical Summary ---
Author Organization Healthcare Address [address] 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 2021 Personal history [...] (2 of 2 - PCV) 07/31/2018 07/31/2017 [id number] Vaccine ( - 2024- season) 2025 02/14/2024, 02/28/2022, 01/20/2021, Additional history [...] this topic Medical Devices Implanted Type Area Fireman Device Identifier Shelf Expiration Date Model / Serial / Lot Lens [id number] 23.5 - [id number] Implanted:Qty: 1 on 06/19/2022 by Latosha Winn MD at [facility] Left: Eye [id number] 11/19/2026 [id number] / [id number] / [id number] Procedures Procedure Name Priority Date/Time Associated [...] contrast, Omnipaque 350, 100 mL per the pulal nary angiogram protocol. In addition, 3D images [...] contrast, Omnipaque 350, [address] [facility]. In addition, 3D images [...] Health Maintenance Insurance MEDICARE [employer] Care Teams Accounting Clerk Relationship Specialty Start Date End Date Ronny Whitehead MD [address] [place] [address] PCP - General Family Medicine 06/01/22 Erin Velez PA [address] [place] [address] Physician Manager Actuarial Neurosurgery 09/13/21
--- OUTSIDE RECORDS SUMMARY | 2025-04-03 14:36 | XMS_ITS | Encounter Summary ---
Author Organization Healthcare Address [address] [place] [address] Care Team Providers Care Senior Peoplesoft Developer Name Role Phone Ari Lovell MD Primary Care Provider + [phone] Erin Velez PA Unavailable [phone] Ronny Whitehead MD Primary Care Provider Isabel vailable Encounter Details Date Type Department Care Team ([facility] st Contact Info) Description 09/05/2021 Orders Only External Location [address] [place] [address] Provider, External Social History Tobacco Use Types [...] documented as of this encounter Care Teams Senior Peoplesoft Developer Relationship Specialty Start Date End Date Ari Lovell MD [address] [place] [address] [place] [address] PCP - General 09/24/20 05/31/22 Ronny Whitehead MD [address] [place] [address] PCP - General Family Medicine 06/01/22 Erin Velez PA [address] [place] [address] Physician Java Sql Developer Neurosurgery 09/13/21 documented as of this encounter
== END 2025-04-03 23:59 | disposition home or self-care (01) ==
LOC: RAD 14:34
PROVIDERS: PCP Family Medicine; Visit Provider Urology
DX: N40.1 Benign prostatic hyperplasia with lower urinary tract symptoms (principal); N39.41 Urge incontinence; R97.20 Elevated prostate specific antigen [PSA]
CPT/HCPCS: 76857